=== PATIENT | female | born 1950 | race Caucasian/White ===

== ENCOUNTER → 2020-05-19 14:42 | Outpatient (CLI) | payer MEDICARE, SELFPAY ==
--- NOTE | ~2020-05-19 | MM_ITS ---
EXAMINATION: MM screening nader RT w mitesh HISTORY: Screening TECHNIQUE: Craniocaudal and mediolateral oblique 3-D tomosynthesis images were obtained and synthetic 2-D images were generated. CAD analysis was submitted and interpreted. COMPARISON: Comparison to multiple prior studies sequentially, with oldest reviewed study dated 09/13. BREAST PARENCHYMAL COMPOSITION: There are scattered areas of fibroglandular density. FINDINGS: There is no evidence of suspicious mass, calcification, or architectural distortion to sugg est malignancy in the right ..breast. There has been no suspicious interval change. IMPRESSION: 1. No mammographic evidence of malignancy. 2. Recommend routine screening mammography in one year. BI-RADS Category 1: Negative Reviewed, dictated and finalized at location A.
== END ==
PROVIDERS: PCP Family Medicine; Visit Provider Student in an Organized Health Care Education/Training Program
DX: Z12.31 Encounter for screening mammogram for malignant neoplasm of breast (principal)
CPT/HCPCS: 77063; 77067

== ENCOUNTER 2021-05-17 01:07 | Day surgery (SDC) | payer MEDICARE, SELFPAY ==
[2021-05-03 09:21] VITALS: BMI 34.0
[2021-05-17 10:14] VITALS: BP 126/80; PULSE 82; RESP 16; TEMP 35.9; O2SAT 98; BMI 35.7
[2021-05-17] MEDS: LACTATED RINGERS 1,000 ML 150 ML IV CONT (10:19)
--- NOTE | 2021-05-17 10:49 | WPDANESEPPF ---
Anes - Initial Pre Proc Eval Procedure: Operation Date: 05/17/21 11:00 Proposed Procedures p Esophagogastroduodenoscopy - Asael Funk MD Date/Time: 05/17/21 10:49 Surgeon: Asael Funk MD Pre Op Diagnosis: dysphagia Patient Data Age: 70 Gender: F Height: 1.52 m Weight: 83.1 kg Last Vital Signs Temp 35.9 C L 05/17/21 10:14 Pulse 82 05/17/21 10:14 Resp 16 05/17/21 10:14 BP 126/80 05/17/21 10:14 Pulse Ox 98 05/17/21 10:14 Allergies Allergy/AdvReac Type Severity Reaction Status Date / Time azithromycin Allergy Severe Diarrhea Verified 05/17/21 10:11 Cephalosporins Allergy Severe Diarrhea Verified 05/17/21 10:11 erythromycin base Allergy Severe Diarrhea Verified 05/17/21 10:11 hyaluronic acid Allergy Intermediate RASH Verified 05/17/21 10:11 naproxen Allergy Intermediate Rash Verified 05/17/21 10:11 Penicillins Allergy Intermediate Rash Verified 05/17/21 10:11 Sulfa (Sulfonamide Allergy Intermediate Rash Verified 05/17/21 10:11 Antibiotics) hyaluronate sodium, AdvReac Intermediate Rash Verified 05/17/21 10:11 stabilized Home Medications Medication Instructions Recorded Confirmed Type anastrozole 1 mg tablet 1 mg PO DAILY 10/15/19 05/17/21 History aspirin 81 mg tablet,delayed 81 mg PO DAILY 10/15/19 05/17/21 History release cholestyramine-aspartame 4 gram 4 gm PO DAILY each 04/10/20 05/17/21 History oral powder for susp in a packet ibuprofen 600 mg tablet 600 mg PO TID PRN #270 tablet MDD 01/10/21 05/17/21 Rx 3 tabs atorvastatin 10 mg tablet 10 mg PO DAILY #90 tablet 01/24/21 05/17/21 Rx cetirizine [Zyrtec] 10 mg PO DAILY 05/03/21 05/17/21 History cholecalciferol (vitamin D3) 50 mcg PO DAILY 05/03/21 05/17/21 History [Vitamin D3] dicyclomine 10 mg PO BID 05/03/21 05/17/21 History famotidine 40 mg PO DAILY 05/03/21 05/17/21 History melatonin 1 mg PO HS PRN 05/03/21 05/17/21 History atorvastatin 10 mg tablet 10 mg PO DAILY 05/15/21 05/17/21 History loperamide 2 mg capsule 2 mg PO Q6H PRN 05/15/21 05/17/21 History nystatin-triamcinolone 100,000 1 applic TOPICAL BID #30 g 05/15/21 05/17/21 Rx unit/gram-0.1 % topical ointment Patient hx anesthesia problems: none Family hx anesthesia problems: none PMFSH Past Medical History Medical History GERD (gastroesophageal reflux disease) History of left breast cancer Hyperlipidemia IBS (irritable bowel syndrome) Other symptoms involving urinary system Surgical History Surgical History H/O arthroscopy of right knee H/O section H/O total knee replacement History of cholecystectomy History of endoscopy History of mastectomy History of tonsillectomy S/P foot surgery, left Family History Family History Father Cerebrovascular accident Family history of osteoarthritis Family history of Alzheimer's disease Mother Family history of thyroid disease Family history of aortic aneurysm Family history of emphysema Other Family history of malignant neoplasm of breast in first degree relative Social History Social History Smoking packs per day: 1 Smoking cigarettes per day: 20.0 Years smoked: 10 Smoking pack-years: 10.00 Smoking status: Former smoker Tobacco type: cigarettes Second hand tobacco smoke exposure: No Smoking end date: 10/13/82 Alcohol intake: current Alcohol use details: Rarely Substance use: never Substance use type: does not use Living arrangements: with family Gender identity (if verbalized by the patient): Female Spiritual care concerns: No Anes - Eval Final PreProcedure Day of Procedure 05/17/21 10:49 Patient weight: obese Heart: regular rate and rhythm Lungs: clear to auscultation Airway: Mallampati scale class II Neurolog
--- NOTE | 2021-05-17 11:02 | PM.HPGS ---
History of Present Illness History of Present Illness Consent: Risks, benefits, and alternatives have been discussed and questions answered. Patient agrees to proceed with procedure. Chief complaint: dysphagia Narrative: Jo Bales is a 70 year old female With dysphagia for solid food. She has a history having an esophageal stricture which was dilated about 3 years ago. Review of Systems Review of Systems: All systems reviewed & are unremarkable except as noted in HPI and below PMFSH Past Medical History Medical History GERD (gastroesophageal reflux disease) History of left breast cancer Hyperlipidemia IBS (irritable bowel syndrome) Other symptoms involving urinary system Surgical History Surgical History H/O arthroscopy of right knee H/O section H/O total knee replacement History of cholecystectomy History of endoscopy History of mastectomy History of tonsillectomy S/P foot surgery, left Family History Family History Father Cerebrovascular accident Family history of osteoarthritis Family history of Alzheimer's disease Mother Family history of thyroid disease Family history of aortic aneurysm Family history of emphysema Other Family history of malignant neoplasm of breast in first degree relative Social History Social History Smoking packs per day: 1 Smoking cigarettes per day: 20.0 Years smoked: 10 Smoking pack-years: 10.00 Smoking status: Former smoker Tobacco type: cigarettes Second hand tobacco smoke exposure: No Smoking end date: 10/13/82 Alcohol intake: current Alcohol use details: Rarely Substance use: never Substance use type: does not use Living arrangements: with family Gender identity (if verbalized by the patient): Female Spiritual care concerns: No Meds Home Medications and Allergies Home Medications Medication Instructions Recorded Confirmed Type anastrozole 1 mg tablet 1 mg PO DAILY 10/15/19 05/17/21 History aspirin 81 mg tablet,delayed 81 mg PO DAILY 10/15/19 05/17/21 History release cholestyramine-aspartame 4 gram 4 gm PO DAILY each 04/10/20 05/17/21 History oral powder for susp in a packet ibuprofen 600 mg tablet 600 mg PO TID PRN #270 tablet MDD 01/10/21 05/17/21 Rx 3 tabs atorvastatin 10 mg tablet 10 mg PO DAILY #90 tablet 01/24/21 05/17/21 Rx cetirizine [Zyrtec] 10 mg PO DAILY 05/03/21 05/17/21 History cholecalciferol (vitamin D3) 50 mcg PO DAILY 05/03/21 05/17/21 History [Vitamin D3] dicyclomine 10 mg PO BID 05/03/21 05/17/21 History famotidine 40 mg PO DAILY 05/03/21 05/17/21 History melatonin 1 mg PO HS PRN 05/03/21 05/17/21 History atorvastatin 10 mg tablet 10 mg PO DAILY 05/15/21 05/17/21 History loperamide 2 mg capsule 2 mg PO Q6H PRN 05/15/21 05/17/21 History nystatin-triamcinolone 100,000 1 applic TOPICAL BID #30 g 05/15/21 05/17/21 Rx unit/gram-0.1 % topical ointment Allergies Allergy/AdvReac Type Severity Reaction Status Date / Time azithromycin Allergy Severe Diarrhea Verified 05/17/21 10:11 Cephalosporins Allergy Severe Diarrhea Verified 05/17/21 10:11 erythromycin base Allergy Severe Diarrhea Verified 05/17/21 10:11 hyaluronic acid Allergy Intermediate RASH Verified 05/17/21 10:11 naproxen Allergy Intermediate Rash Verified 05/17/21 10:11 Penicillins Allergy Intermediate Rash Verified 05/17/21 10:11 Sulfa (Sulfonamide Allergy Intermediate Rash Verified 05/17/21 10:11 Antibiotics) hyaluronate sodium, AdvReac Intermediate Rash Verified 05/17/21 10:11 stabilized Vital Signs Vital Signs - 24 hr 05/17/21 10:14 Temperature 35.9 C L Pulse Rate 82 Respiratory Rate 16 Blood Pressure 126/80 Pulse Oximetry 98 Exam Const: General: alert Orientation/consciousnes
[2021-05-17 11:37] VITALS: BP 126/80; PULSE 84; RESP 24; O2SAT 95
[2021-05-17 11:47] VITALS: BP 104/56; PULSE 74; RESP 16; O2SAT 100
[2021-05-17 11:57] VITALS: BP 101/57; PULSE 70; RESP 18; O2SAT 99
== END 2021-05-17 12:17 | disposition home or self-care (01) ==
PROVIDERS: PCP Family Medicine; Visit Provider Internal Medicine Gastroenterology
PROC: 0DJ08ZZ Inspection of Upper Intestinal Tract, Via Natural or Artificial Opening Endoscopic (ICD-10-PCS; CPT 43235; principal; 2021-05-17 11:00)
DX: K22.2 Esophageal obstruction (principal); K25.9 Gastric ulcer, unspecified as acute or chronic, without hemorrhage or perforation; K21.9 Gastro-esophageal reflux disease without esophagitis; E78.5 Hyperlipidemia, unspecified; K58.9 Irritable bowel syndrome, unspecified; Z85.3 Personal history of malignant neoplasm of breast; Z79.811 Long term (current) use of aromatase inhibitors; Z79.82 Long term (current) use of aspirin; Z87.891 Personal history of nicotine dependence; E66.9 Obesity, unspecified; Z68.35 Body mass index [BMI] 35.0-35.9, adult
CPT/HCPCS: 43239; 43249; 87081; C1726; J2001; J2704; J7120

== ENCOUNTER 2021-06-08 14:53 | Outpatient (CLI) | payer MEDICARE, SELFPAY ==
--- NOTE | ~2021-06-08 | MM_ITS ---
EXAMINATION: MM screening nader RT w mitesh HISTORY: Screening right mammogram, history of left mastectomy TECHNIQUE: Craniocaudal and mediolateral oblique 3-D tomosynthesis images were obtained and synthetic 2-D images were generated. CAD analysis was submitted and interpreted. COMPARISON: 05/19/2020, 12/16/2018, 11/11/2017 BREAST PARENCHYMAL COMPOSITION: The breast is almost entirely fatty. FINDINGS: There is no evidence of suspicious mass, calcification, or architectural distortion to sugg est malignancy. There has been no suspicious interval change. IMPRESSION: 1. No mammographic evidence of malignancy. 2. Recommend routine screening mammography in one year. BI-RADS Category 1: Negative Reviewed, dictated and finalized at location A.
== END 2021-06-08 14:54 | disposition home or self-care (01) ==
LOC: ANHIMG 14:58
PROVIDERS: PCP Family Medicine; Referring Provider Internal Medicine Medical Oncology; Visit Provider Student in an Organized Health Care Education/Training Program
DX: Z12.31 Encounter for screening mammogram for malignant neoplasm of breast (principal)
CPT/HCPCS: 77063; 77067

== ENCOUNTER 2021-07-02 12:54 | Outpatient (CLI) | payer MEDICARE, SELFPAY ==
--- NOTE | ~2021-07-02 | DEXA_ITS ---
Bone Density Report Name: Jo Bales Age: 70 Sex: Female Ethnicity: White Date of : 1950 Indication: osteopenia; height loss; inflammatory bowel disease; prior fracture; cancer; Referring Provider: Bessie Santacruz Study: Bone densitometry was performed. Exam Date: July 02, 2021 Accession number: [id number] Bone Density: Region BMD T-score Z-score Classification AP Spine (L1-L4) 0.944 -0.9 1.2 Normal Femoral Neck (Left) 0.688 -1.5 0.4 Osteopenia Total Hip (Left) 0.808 -1.1 0.4 Osteopenia Total Hip Bilateral Avg 0.833 -0.9 0.6 Normal Femoral Neck (Right) 0.768 -0.7 1.1 Normal Total Hip (Right) 0.856 -0.7 0.8 Normal World Health Organization criteria for BMD impression classify patients as: Normal (T-score at or above -1.0), Osteopenia (T-score between -1.0 and -2.5), or Osteoporosis (T-score at or below -2.5). 10-year Fracture Risk(1): Major Osteoporotic Fracture 15% Hip Fracture 2.0% Reported Risk Factors: [place] (), Neck BMD=0.688, BMI=32.0, previous fracture (1) FRAX(R) Version 3.08. Fracture probability calculated for an untreated patient. Fracture probability may be lower if the patient has received treatment. Previous Exams: Region Exam Age BMD T-score BMD Change BMD Change Date g/cm2 vs Baseline vs Previous AP Spine(L1-L4) 07/02/2021 70 0.944 -0.9 0.049(5.5%)# 0.049(5.5%)# 03/31/2012 61 0.895 -1.4 Total Hip(Left) 07/02/2021 70 0.808 -1.1 -0.060(-6.9%)# -0.060(-6.9%)# 03/31/2012 61 0.868 -0.6 Total Hip(Right) 07/02/2021 70 0.856 -0.7 -0.023(-2.6%)# -0.023(-2.6%)# 03/31/2012 61 0.878 -0.5 *Denotes significance at 95% confidence level, LSC for AP Spine = 0.022 g/cm2, LSC for Total Hip = 0.027 g/cm2 Clinical Information Provided by Patient: Has had a low trauma fracture Has used the following medications: Vitamin D Has the following medical conditions: Cancer, Inflammatory bowel diseases Patient maximum height was 61 Menopause Age: 43 No regular weight bearing exercise Drinks caffeinated beverages Onset of menses at age 12 Number of children 2 Impression: The patient has low bone mass, based on the Left Femoral Neck T-score. The patient has an estimated ten-year risk of hip fracture of 2% and an estimated ten-year risk of major fracture of 15%, based on the WHO FRAX algorithm. The patient has risk factors, including: previous fracture. No significant bone loss was observed.
== END 2021-07-02 12:55 | disposition home or self-care (01) ==
LOC: ANHIMG 12:56
PROVIDERS: PCP Family Medicine; Visit Provider Student in an Organized Health Care Education/Training Program
DX: Z78.0 Asymptomatic menopausal state (principal); M85.852 Other specified disorders of bone density and structure, left thigh
CPT/HCPCS: 77080

== ENCOUNTER 2022-03-27 14:45 | Outpatient (CLI) | payer MEDICARE, SELFPAY ==
--- NOTE | ~2022-03-27 | CT_ITS ---
EXAMINATION: CT thoracic spine wo con DATE: 03/27/2022 15:33 INDICATION: Lumbar stenosis with neurogenic claudication. TECHNIQUE: Computed tomography (CT) of the thoracic spine was performed without intravenous contrast. Automated exposure control and iterative reconstruction technique were employed. The dose-length pro duct was 1049.80 mGy-cm. COMPARISON: None FINDINGS: The lungs demonstrate mild atelectasis. There is 7 degrees dextrocurvature of thoracic spin e. There is 6 degrees levocurvature of cervicothoracic spine. There is 2 mm anterolisthesis of T2 on T3. Vertebral body heights are normal. There is moderately decreased disc height at T2-T3, severely d ecreased disc height from T3-T4 through T5-T6, and moderately decreased disc height at T9-T10. There is mildly decreased disc height at multiple other levels. There is multilevel facet joint osteoarthri tis, severe on the right at T1-T2 and T2-T3. There is multilevel mild neural foraminal stenosis bilat erally. On the right, there is moderate neural foraminal stenosis at T3-T4 and T9-T10. On the left, t here is moderate neural foraminal stenosis at T4-T5. There is mild central canal stenosis at T2-T3, T 3-T4, T4-T5, T5-T6, T6-T7, T7-T8, T9-T10, and T11-T12. IMPRESSION: 1. Severe thoracic spondylosis. Reviewed, dictated and finalized at location B.
--- NOTE | ~2022-03-27 | XR_ITS ---
EXAM: XR lumbar spine 2-3V DATE: 03/27/2022 16:12 HISTORY: LUMBAR STENOSIS WITH NEUROGENIC CLASUDICATION . COMPARISON: 08/07/2004, CT abdomen and pelvis 11/22/2016. FINDINGS: 5 nonrib-bearing lumbar-type vertebral bodies. Pedicles intact as visualized. Lumbar scoli osis. 3 mm retrolisthesis of L1 on L2. Linear anterolisthesis of L5 on S1. Vertebral body heights pre served. Multilevel disc space narrowing and marginal osteophytosis. Multilevel severe facet hypertrop hy and sclerosis. Posterior fusion abnormality at L3 and L4. Previously described pars defect not paco ged in this study. No fracture or dislocation. IMPRESSION: Grade 2 anterolisthesis of L5 on S1. Grade 1 retrolisthesis of L1 on L2. Multilevel moder ate degenerative disc disease. Multilevel severe lumbar facet arthropathy. Reviewed, dictated and finalized at location K. IMPRESSION: Grade 2 anterolisthesis of L5 on S1. Grade 1 retrolisthesis of L1 o n L2. Multilevel moderate degenerative disc disease. Multilevel severe lumbar f acet arthropathy.
--- NOTE | ~2022-03-27 | CT_ITS ---
EXAMINATION: CT cervical spine wo con DATE: 03/27/2022 15:34 INDICATION: Lumbar stenosis with neurogenic claudication. TECHNIQUE: Computed tomography (CT) of the cervical spine was performed without intravenous contrast. Automated exposure control and iterative reconstruction technique were employed. The dose-length pro duct was 405.20 mGy-cm. COMPARISON: CT cervical spine 05/09/16 FINDINGS: There is 7 degrees dextrocurvature of cervical spine. There is kyphosis of cervical spine. Vertebral body heights are normal. C1 ring is ununited posteriorly, a normal variant. There is mildly decreased disc height at C3-C4 and C4-C5 and C5-C6. The following disc levels are specifically discu ssed: C2-C3: There is moderate left uncovertebral joint osteoarthritis. There is mild right and severe left facet joint osteoarthritis. There is mild left neural foraminal stenosis. There is no central canal stenosis. C3-C4: There is mild bilateral uncovertebral joint osteoarthritis. There is moderate right and severe left facet joint osteoarthritis. There is mild bilateral neural foraminal stenosis. There is mild ce ntral canal stenosis. C4-C5: There is mild bilateral uncovertebral joint osteoarthritis. There is severe bilateral facet lizabeth int osteoarthritis. There is mild bilateral neural foraminal stenosis. There is no central canal sten osis. C5-C6: There is moderate right and severe left uncovertebral joint osteoarthritis. There is mild bila teral facet joint osteoarthritis. There is mild bilateral neural foraminal stenosis. There is mild ce ntral canal stenosis. C6-C7: There is no uncovertebral joint osteoarthritis. There is severe right facet joint osteoarthrit is. There is mild right neural foraminal stenosis. There is no central canal stenosis. C7-T1: There is no uncovertebral joint osteoarthritis. There is severe bilateral facet joint osteoart hritis. There is no neural foraminal stenosis. There is no central canal stenosis. IMPRESSION: 1. Mild cervical spondylosis. Reviewed, dictated and finalized at location B.
== END 2022-03-27 14:46 | disposition home or self-care (01) ==
PROVIDERS: PCP Family Medicine
DX: M48.062 Spinal stenosis, lumbar region with neurogenic claudication (principal); M47.815 Spondylosis without myelopathy or radiculopathy, thoracolumbar region; M47.813 Spondylosis without myelopathy or radiculopathy, cervicothoracic region; M48.03 Spinal stenosis, cervicothoracic region; M47.817 Spondylosis without myelopathy or radiculopathy, lumbosacral region; M48.07 Spinal stenosis, lumbosacral region
CPT/HCPCS: 72100; 72125; 72128

== ENCOUNTER 2022-05-24 01:40 | Outpatient (CLI) | payer MEDICARE, SELFPAY ==
[2022-05-17 15:11] VITALS: BMI 36.5
--- NOTE | 2022-05-17 15:14 | PC.NURSE ---
Pre Radiology instructions Report to the Outpatient Waiting Room, entrance under the green pavilion located off [facility], at time 0800 on date 05/24/22. Procedure Time: 1000. One visitor will be allowed to accompany the patient into the hospital. The visitor will be instructed to remain with patient at all times or leave the building. We will allow the visitor to come back to the postoperative area when patient is ready. You and your visitor will be asked a series of questions to screen for COVID 19 for your protection. A mask is required within the hospital. Patients are to have no food or drink 6 hours prior to procedure time Driving will be restricted after the procedure, you must have a person to drive you home. Labs will be drawn in preop area and once reviewed, you will be taken to radiology area for procedure. When the procedure is completed, you will be taken to outpatient where you will be monitored for several hours. You may have one visitor in this area. Other than holding anti-coagulants, patient may take other medication(s) as scheduled. Prior to your appointment date patients are instructed to hold anti-coagulants after discussing with ordering provider to stop. If unable to discontinue anti-coagulants please notify radiologist. No aspirin or warfarin (Coumadin) for 7 days prior to the procedure. No clopidogrel (Plavix), ticagrelor (Brilinta), prasugrel (Effient) or dabigatran (Pradaxa) for 5 days prior to the procedure. No rivaroxaban (Xarelto), apixaban (Eliquis), dipyridamole (Aggrenox or Persantine) or cilostazol (Pletal) for 2 days prior to the procedure. Medications to discontinue per physician: N/A Date to take last dose: N/A Please leave all valuables, including medications, at home the day of procedure. The hospital will not accept responsibility for valuables. Wear comfortable, loose fitting clothing. Follow any additional instructions given to you from ordering provider. Telephone instructions given to MEERA ESPOSITO and asked if any additional questions and then verbalized understanding. Patient advised to call scheduling provider office or registration scheduling [phone] if any additional questions.
[2022-05-24] VITALS (7 sets, daily range): BP systolic 94–129; BP diastolic 43–75; PULSE 70–91; RESP 16; TEMP 36.4; O2SAT 96–99
--- NOTE | ~2022-05-24 | CT_ITS ---
EXAMINATION: 1. XR myelogram spine lumbosacral 2. CT lumbar spine w con DATE: 05/24/2022 11:14 INDICATION: Other secondary scoliosis, lumbar region. TECHNIQUE: The procedure including the risks, benefits, and alternatives was discussed with the patie nt. Risks discussed included spinal headache, bleeding, and infection. The patient understood the ris ks and agreed to proceed. A timeout was performed to verify the patient's name, date of , and procedure to be performed. The skin overlying the L2-L3 level was prepped and draped in usual steri le fashion. Subcutaneous 1% lidocaine was used for local anesthesia. A 22 gauge spinal needle was a dvanced under fluoroscopic guidance. 10 mL Omnipaque 350 was injected. The needle was removed and the entry site was cleaned and dressed. There were no immediate complications. Fluoroscopy exposure felecia e was 0.5 minutes. The total number of images was 9. Computed tomography (CT) of the lumbar spine was performed without intravenous contrast. Automated exposure control and iterative reconstruction tech nique were employed. The dose-length product was 1131.73 mGy-cm. COMPARISON: Lumbar spine radiographs 03/27/2022 FINDINGS: LUMBAR MYELOGRAM: There are 12 pairs of ribs. There are 5 nonrib-bearing lumbar segments. There are i ndentations on the thecal sac at multiple levels that will be further described on the lumbar spine C T. POST-MYELOGRAM LUMBAR SPINE CT: There is 13 degrees levoscoliosis from T12 to L3. L3 is a butterfly s egment. There is 3 mm anterolisthesis of L4 on L5. There is mildly decreased disc height at T12-L1, m oderately decreased disc height at L1-L2, and mildly decreased disc height at L2-L3. There is severel y decreased disc height at L5-S1 on the left. There is dysraphism at L3 and L4. Diastematomyelia is n oted. The conus medullaris is at L4. The following disc levels are specifically discussed: T12-L1: The disc is bulging. There is mild bilateral facet joint osteoarthritis. There is mild right neural foraminal stenosis. There is mild central canal stenosis. L1-L2: The disc is bulging. There is mild bilateral facet joint osteoarthritis. There is mild right n eural foraminal stenosis. There is no central canal stenosis. L2-L3: The disc is bulging. There is mild right and moderate left facet joint osteoarthritis. There i s no neural foraminal stenosis. There is no central canal stenosis. L3-L4: The disc does not extend beyond the endplate margins. There is moderate right and severe left facet joint osteoarthritis. There is no neural foraminal stenosis. There is no central canal stenosis . L4-L5: The disc is bulging. There is severe bilateral facet joint osteoarthritis. There is mild right and moderate left neural foraminal stenosis. There is mild central canal stenosis. L5-S1: The disc is bulging. There is severe bilateral facet joint osteoarthritis. There is mild right and moderate left neural foraminal stenosis. There is no central canal stenosis. IMPRESSION: 1. 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 2. 13 degrees levoscoliosis of thoracolumbar spine. 3. Severe lower lumbar spondylosis. Reviewed, dictated and finalized at location A. IMPRESSION: 1. 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 2. 13 degrees levoscoliosis of thoracolumbar spine. 3. Severe lower lumbar spondylosis.
[2022-05-24] MEDS: traMADol HCL (*CRX) 50 MG TABLET PO (11:35)
== END 2022-05-24 13:05 | disposition home or self-care (01) ==
PROVIDERS: PCP Family Medicine; Visit Provider Radiology Diagnostic Radiology
DX: M41.85 Other forms of scoliosis, thoracolumbar region (principal); M41.56 Other secondary scoliosis, lumbar region; M47.816 Spondylosis without myelopathy or radiculopathy, lumbar region
CPT/HCPCS: 36415; 62304; 72132; 85610; A9270; Q9967

== ENCOUNTER 2022-07-11 10:24 | Outpatient (CLI) | payer MEDICARE, SELFPAY ==
--- NOTE | ~2022-07-11 | MM_ITS ---
EXAMINATION: MM screening nader RT w mitesh HISTORY: Screening mammogram; status post left mastectomy in 1992 TECHNIQUE: Craniocaudal and mediolateral oblique 3-D tomosynthesis images were obtained and synthetic 2-D images were generated. CAD analysis was submitted and interpreted. COMPARISON: 06/08/2021, 05/19/2020, 12/16/2018 right screening mammogram examinations BREAST PARENCHYMAL COMPOSITION: The breasts are almost entirely fatty. FINDINGS: There is no evidence of suspicious mass, calcification, or architectural distortion to sugg est malignancy in either breast. There has been no suspicious interval change. IMPRESSION: 1. No mammographic evidence of malignancy. 2. Recommend routine screening mammography in one year. BI-RADS Category 1: Negative Reviewed, dictated and finalized at location A.
== END 2022-07-11 10:25 | disposition home or self-care (01) ==
PROVIDERS: PCP Family Medicine; Visit Provider Student in an Organized Health Care Education/Training Program
DX: Z12.31 Encounter for screening mammogram for malignant neoplasm of breast (principal)
CPT/HCPCS: 77063; 77067

== ENCOUNTER → 2022-11-15 09:17 | Outpatient (CLI) | payer MEDICARE, SELFPAY ==
--- NOTE | ~2022-11-15 | US_ITS ---
Abdominal Sonogram: Real-time sonographic imaging of the abdomen was performed. Clinical History: Fatty liver Findings: The liver appears normal with no evidence of mass lesion or bile duct dilatation. Main por nelli vein demonstrates normal direction of flow. The spleen is normal in size without evidence of foca l lesion. The gallbladder is absent, compatible with prior cholecystectomy. The common bile duct adriana sures 5 mm. The visualized pancreas, aorta, and IVC are unremarkable. The right kidney measures 10. 0 cm in length and the left kidney measures 10.2 cm. There is no hydronephrosis or renal calculus. T here is a 9 mm echogenic structure in the right renal cortex, compatible small angiomyolipoma. Impression: Status post cholecystectomy. 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 Reviewed, dictated and finalized at [facility]. ERN SCRATCHER Impression: Status post cholecystectomy. 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
--- NOTE | ~2022-11-15 | XR_ITS ---
Clinical Indication: Wheezing PA and lateral views of the chest: Comparison: 11/22/2016 Findings: The lungs are clear, without evidence of focal consolidation or pleural effusion. Cardiome diastinal silhouette is within normal limits. Bones and soft tissues are unremarkable. Impression: Normal chest. Reviewed, dictated and finalized at [facility]. Y PLAN SALES DIRECTOR Impression: Normal chest.
== END ==
PROVIDERS: PCP Family Medicine
DX: K76.0 Fatty (change of) liver, not elsewhere classified (principal); N28.9 Disorder of kidney and ureter, unspecified
CPT/HCPCS: 71046; 76700

== ENCOUNTER → 2022-12-26 15:09 | Outpatient (CLI) | payer MEDICARE, SELFPAY ==
--- NOTE | ~2022-12-26 | XR_ITS ---
EXAMINATION: XR hand RT 2V, XR finger 1st RT min 2V DATE: 12/26/2022 15:21 INDICATION: Nontraumatic right thumb pain with tenderness at the anatomic snuff box of the right wris t. TECHNIQUE: 1. Posteroanterior, oblique and lateral views of the right thumb were obtained. 2. Posteroanterior and lateral views of the right hand were obtained. COMPARISON: None. FINDINGS: Bone alignment is normal. No fracture. Chondrocalcinosis in the region of the triangular fibrocartila ge complex. Polyarticular osteoarthritis, moderate to severe at the first carpometacarpal joint and m oderate at the triscaphe joint and at the second-fifth distal interphalangeal joints. Mild osteoarthr itis at the first and second metacarpophalangeal and remaining interphalangeal joints. Soft tissues a re unremarkable. IMPRESSION: 1. Polyarticular osteoarthritis, moderate to severe at the first carpometacarpal joint and moderate a t the triscaphe and several distal interphalangeal joints. Reviewed, dictated and finalized at location L. IMPRESSION: 1. Polyarticular osteoarthritis, moderate to severe at the first carpometacarpa l joint and moderate at the triscaphe and several distal interphalangeal joints .
== END ==
PROVIDERS: PCP Family Medicine; Visit Provider Family Medicine
DX: M79.644 Pain in right finger(s) (principal); M15.9 Polyosteoarthritis, unspecified
CPT/HCPCS: 73120; 73140

== ENCOUNTER → 2023-02-03 15:50 | Outpatient (CLI) | payer MEDICARE, SELFPAY ==
--- NOTE | ~2023-02-03 | XR_ITS ---
EXAMINATION: XR hip RT min 2V DATE: 02/03/2023 16:05 INDICATION: Right hip pain TECHNIQUE: Two views of right hip were obtained. COMPARISON: 08/07/2004 FINDINGS: There is mild osteoarthritis of the hip. Bone alignment is normal. There is no fracture. Ph leboliths are noted in the pelvis. IMPRESSION: 1. Mild osteoarthritis of the hip. Reviewed, dictated and finalized at location L.
== END ==
PROVIDERS: PCP Family Medicine
DX: M16.11 Unilateral primary osteoarthritis, right hip (principal)
CPT/HCPCS: 73502

== ENCOUNTER 2023-06-02 13:30 | Outpatient (RCR) | payer MEDICARE, SELFPAY ==
--- NOTE | 2023-05-09 15:31 | OPREHPOC ---
Outpatient Therapy Plan of Care This is a Multidisciplinary Plan of Care that may contain components documented by all disciplines (PT, OT, and ST.) PT Problem 1 PT Problem #1 Knowledge Deficit PT Goal 1 Goal 1* indep with HEP for land and water PT Problem 2 PT Problem #2 Pain PT Goal 1 Goal 1* pt report pain at worst of 6/10 2* pt report standing/walking tolerance of 15 minutes without an increase in pain PT Problem 3 PT Problem #3 Impaired Strength PT Goal 1 Goal 1* pt able to perform aquatic exercises for 45 minutes 2* 2 minute walking test distance of 300', with cane
--- NOTE | 2023-05-09 15:31 | PTOPEVAL1 ---
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 GOAL: have less pain, walk dogs around block; Reported Pain Level Pain Score Self Report Additional Pain Score Comments pain range in the past week: 0-8/10; constant dull ache; occasionally with moving wrong/turn back- sharp and more pain; stiff back; mostly R low back and into Buttock increase pain: stand/walk 10-15 minutes; stand and twist back, in car and go to get out decrease pain: lie down, heat, home stim, vibration cushion for chair; ibuprofen 2-3 x/day, tylenol PRN, gabapentin, tramadol--PRN when really bad; sleeping is not dirupted due to back pain; Assessment PT Clinical Summary Jo has the diagnosis of back pain. 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 She ambulates with a cane out of the home and has decreased standing, walking and activity tolerance due to pain. Education with patient on pain managemen
--- NOTE | 2023-06-02 14:13 | PTOPDC ---
Assessment and note entered by Halima Wolf, PT Evaluation Information Assessment Status Discharge Diagnosis back pain Onset about 1 year ago Subjective Information Jo reports: likes the water exercises and jets in the water; little stronger than was when started therapy; feel like pain is about the same; saw pain management last week--she is eligible to get an injection in her hip, but did not want one yet, was given a round of steroids to use if hip flares up; is going to see about joining a pool to keep with the water exercises. Reported Pain Level Pain Score Self Report Additional Pain Score Comments pain range in the past week 0-6/10; R and L low back, no radicular pain reported standing/walking 10 min; increase pain; standing, walking, laundry, increase activity decrease pain: sit,rest, home stim, muscle cream; reinforced activity/rest balance, use of motorized scooter for distances; Assessment PT Clinical Summary Jo has received 6 PT sessions. Compared to the initial evaluation: pain rating at the low rate is the same at 0/10 and worst rating decreased from 8 to 6/10; reported standing/walking tolerance is the same at 10 minutes; 2 minute walking test distance improved from 200 to 220'; increase strength with mat exercises and tolerating 45 minutes of aquatic exercises; education completed for HEP and pain management. The goals were partially achieved. Discharge PT services. Plan of Care PT Services Indicated No
== END 2023-06-02 15:43 | disposition home or self-care (01) ==
LOC: ANHPT 13:30
PROVIDERS: PCP Family Medicine; Visit Provider Physician Assistant
DX: M54.9 Dorsalgia, unspecified (principal)
CPT/HCPCS: 97110; 97113; 97161; 97530

== ENCOUNTER 2023-10-27 13:09 | Outpatient (CLI) | payer MEDICARE, SELFPAY ==
--- NOTE | ~2023-10-27 | MM_ITS ---
EXAMINATION: MM screening nader RT w mitesh HISTORY: Screening. Status post left mastectomy. TECHNIQUE: Craniocaudal and mediolateral oblique 3-D tomosynthesis images were obtained and synthetic 2-D images were generated. CAD analysis was submitted and interpreted. COMPARISON: Comparison to multiple prior studies sequentially, with oldest reviewed study dated 09/13. BREAST PARENCHYMAL COMPOSITION: The breasts are almost entirely fatty. FINDINGS: There is no evidence of suspicious mass, calcification, or architectural distortion to sugg est malignancy in the right breast breast. There has been no suspicious interval change. IMPRESSION: 1. No mammographic evidence of malignancy. 2. Recommend routine screening mammography in one year. BI-RADS Category 1: Negative Reviewed, dictated and finalized at location A. EGE ADVISOR
== END 2023-10-27 13:10 | disposition home or self-care (01) ==
LOC: ANHIMG 13:12
PROVIDERS: PCP Family Medicine; Visit Provider Physician Assistant
DX: Z12.31 Encounter for screening mammogram for malignant neoplasm of breast (principal); Z85.3 Personal history of malignant neoplasm of breast
CPT/HCPCS: 77063; 77067

== ENCOUNTER 2023-11-19 13:41 | Outpatient (CLI) | payer MEDICARE, SELFPAY ==
--- NOTE | ~2023-11-19 | DEXA_ITS ---
Bone Density Report Name: REZA ESPOSITO Age: 73 Sex: Female Ethnicity: White Date of : 1950 Indication: osteopenia; height loss; inflammatory bowel disease; cancer; Referring Provider: FERNANDA SMITH Study: Bone densitometry was performed. Exam Date: November 19, 2023 Accession number: [id number] Bone Density: Region BMD T-score Z-score Classification AP Spine(L1-L4) 0.932 -1.0 1.2 Normal Femoral Neck (Left) 0.703 -1.3 0.7 Osteopenia Total Hip (Left) 0.767 -1.4 0.2 Osteopenia Femoral Neck (Right) 0.728 -1.1 0.9 Osteopenia Total Hip (Right) 0.784 -1.3 0.4 Osteopenia Total Hip Mean 0.776 -1.4 0.3 Osteopenia World Health Organization criteria for BMD impression classify patients as: Normal (T-score at or above -1.0), Osteopenia (T-score between -1.0 and -2.5), or Osteoporosis (T-score at or below -2.5). 10-year Fracture Risk(1): Major Osteoporotic Fracture 9.6% Hip Fracture 1.4% Reported Risk Factors: [place] (), Neck BMD=0.703, BMI=34.2 (1) FRAX(R) Version 3.08. Fracture probability calculated for an untreated patient. Fracture probability may be lower if the patient has received treatment. Previous Exams: Region Exam Age BMD T-score BMD Change BMD Change Date g/cm2 vs Baseline vs Previous AP Spine (L1-L4) 11/19/2023 73 0.932 -1.0 -0.012 (-1.2%) -0.012 (-1.2%) 07/02/2021 70 0.944 -0.9 Total Hip(Left) 11/19/2023 73 0.767 -1.4 -0.041 (-5.0%) -0.041 (-5.0%) 07/02/2021 70 0.808 -1.1 Total Hip(Right) 11/19/2023 73 0.784 -1.3 -0.071 (-8.3%) -0.071 (-8.3%) 07/02/2021 70 0.856 -0.7 *Denotes significance at 95% confidence level, LSC for AP Spine = 0.022 g/cm2, LSC for Total Hip = 0.027 g/cm2 Clinical Information Provided by Patient: Has used the following medications: Vitamin D Has the following medical conditions: Cancer, Inflammatory bowel diseases Patient maximum height was 62 Menopause Age: 43 No regular weight bearing exercise Drinks caffeinated beverages Onset of menses at age 11 Number of children 2 Impression: The patient has low bone mass, based on the Left Total Hip T-score. The patient has an estimated ten-year risk of hip fracture of 1.4% and an estimated ten-year risk of major fracture of 9.6%, based on the WHO FRAX algorithm. The BMD for the Total Hip(Left) decreased, changing by -5.0% since the last DXA exam. The BMD for the Total Hip(Right) decreased, changing b
== END 2023-11-19 13:42 | disposition home or self-care (01) ==
LOC: ANHIMG 13:42
PROVIDERS: PCP Family Medicine; Visit Provider Physician Assistant
DX: M85.89 Other specified disorders of bone density and structure, multiple sites (principal); Z78.0 Asymptomatic menopausal state
CPT/HCPCS: 77080

== ENCOUNTER 2024-05-11 11:15 | Outpatient (CLI) | payer MEDICARE, SELFPAY ==
--- NOTE | ~2024-05-11 | XR_ITS ---
XR shoulder LT min 2V Ordering provider: Troy Lopez APRN History: . fall 6 weeks ago left shoulder pain with limited rom . Comparison: None. FINDINGS: BONES: No acute fracture or dislocation. Bony fragment inferior to the glenoid cavity most likely due to old trauma or synovitis chondromatosis.. Osteophytes seen in the humerus. JOINT SPACES: The acromioclavicular joint is normal. The glenohumeral joint shows osteoarthritic de jesus ges. SOFT TISSUES: Normal. IMPRESSION: No acute osseous abnormality left shoulder. Osteoarthritic changes of the left glenohumeral joint. Reviewed, dictated and finalized at location A.
== END 2024-05-11 11:16 ==
PROVIDERS: PCP Family Medicine; Visit Provider Student in an Organized Health Care Education/Training Program
DX: M19.012 Primary osteoarthritis, left shoulder (principal)
CPT/HCPCS: 73030

== ENCOUNTER 2024-11-19 09:18 | Observation (INO) | payer MEDICARE, SELFPAY ==
[2024-11-19] VITALS (10 sets, daily range): BP systolic 114–143; BP diastolic 61–85; PULSE 71–95; RESP 16–18; TEMP 36.3–36.6; O2SAT 93–100; BMI 34.2
--- NOTE | ~2024-11-19 | CT_ITS ---
EXAMINATION: CT brain wo con DATE: 11/19/2024 09:45 INDICATION: Head injury TECHNIQUE: Computed tomography (CT) of the head was performed without intravenous contrast. Sagittal and coronal reconstructions were performed. The mA was adjusted according to patient size. Iterative reconstruction technique was employed. The dose-length product was 605.33 mGy-cm. COMPARISON: None FINDINGS: No fracture. No acute intracranial hemorrhage, acute infarction or abnormal extra axial fluid collect ion. Ventricles are normal and symmetric. No mass/mass effect. Changes of bilateral intraocular lens replacement. The orbits, paranasal sinuses and mastoid air cells are normal. Developmental variant un fused posterior ring of C1. IMPRESSION: 1. No fracture or acute intracranial process. Reviewed, dictated and finalized at location B. ATE INVESTIGATOR SURVEILLANCE
--- NOTE | ~2024-11-19 | XR_ITS ---
EXAMINATION: XR chest 2V DATE: 11/19/2024 12:38 INDICATION: Chest pain. TECHNIQUE: Frontal and lateral views of the chest were obtained. COMPARISON: Chest 2 views 11/15/2022 FINDINGS: There is no pneumonia, pleural effusion, or pneumothorax. The heart size is normal. There i s old healed fracture of proximal right humerus. Surgical clips in the right upper quadrant are likel y from cholecystectomy. IMPRESSION: 1. No acute cardiopulmonary disease. Reviewed, dictated and finalized at location A. ATOLOGY NURSE
--- NOTE | ~2024-11-19 | CT_ITS ---
EXAMINATION: CT knee RT wo con DATE: 11/19/2024 14:20 INDICATION: Right knee pain. TECHNIQUE: Computed tomography (CT) of the right knee was performed without intravenous contrast. Aut omated exposure control and iterative reconstruction technique were employed. The dose-length product was 426.63 mGy-cm. COMPARISON: Right knee radiographs 11/19/2024 FINDINGS: There is a total right knee arthroplasty in near-anatomic alignment with patellar resurfaci ng. No fracture. No periprosthetic lucency to suggest loosening or infection. There is a small knee j oint effusion with small loose bodies. IMPRESSION: 1. Total right knee arthroplasty in near-anatomic alignment. 2. Small knee joint effusion with small loose bodies. Reviewed, dictated and finalized at location A. MOTIVE SALES ASSOCIATE
--- NOTE | ~2024-11-19 | XR_ITS ---
EXAMINATION: XR knee RT 3V DATE: 11/19/2024 10:03 INDICATION: Right knee injury and pain. TECHNIQUE: 3 views of right knee were obtained. COMPARISON: Right knee radiographs 01/05/2012 FINDINGS: There is a total right knee arthroplasty with patellar resurfacing in near-anatomic alignme nt. There are osteophytes of the patella. No fracture. No periprosthetic lucency to suggest loosening or infection. There is a small knee joint effusion with loose bodies. IMPRESSION: 1. Total right knee arthroplasty in near-anatomic alignment. 2. Small right knee joint effusion with loose bodies. Reviewed, dictated and finalized at location A. OR HRIS ANALYST
--- NOTE | ~2024-11-19 | XR_ITS ---
EXAMINATION: XR foot LT min 3V DATE: 11/19/2024 12:39 INDICATION: Fall. TECHNIQUE: 4 views of left foot were obtained. COMPARISON: Left foot radiographs 08/09/2012 FINDINGS: There is moderate hallux valgus. There is chronic absence of the distal aspect of fifth pro ximal phalanx. There is chronic deformity of the head of the fourth proximal phalanx. There is chroni c varus angulation at third proximal interphalangeal joint with chronic deformity of head of third pr oximal phalanx. There is ankylosis of second proximal interphalangeal joint. No acute fracture. There is mild osteoarthritis of some of the midfoot joints. There is an enthesophyte at plantar aspect of calcaneal tuberosity. IMPRESSION: 1. Moderate hallux valgus. 2. Mild polyarticular osteoarthritis. 3. Chronic deformities of some of the toes. Reviewed, dictated and finalized at location A. ING EXECUTIVE
--- NOTE | ~2024-11-19 | XR_ITS ---
EXAMINATION: XR ankle LT min 3V DATE: 11/19/2024 12:39 INDICATION: Fall. TECHNIQUE: 4 views of left ankle were obtained. COMPARISON: None. FINDINGS: Alignment is normal. No acute fracture. There is heterotopic ossification distal to lateral malleolus. There is mild ankle joint osteoarthritis. IMPRESSION: 1. Mild ankle joint osteoarthritis. Reviewed, dictated and finalized at location A. AL FUND MANAGER
--- NOTE | 2024-11-19 10:07 | ECG_ITS ---
Test Date: 2024-11-19 10:24:10 Measurements Intervals [place] Rate: 76 P: 50 IN: 169 QRS: -37 QRSD: 98 T: 21 QT: 369 QTc: 416 Interpretive Statements SINUS RHYTHM LEFT AXIS DEVIATION VOLTAGE CRITERIA FOR LVH MINIMAL Q WAVES- HIGH LATERAL LEADS BORDERLINE ECG No previous ECG available for comparison Electronically Signed On 11-19-2024 14:03:23 EMERGENCY TELECOMMUNICATIONS DISPATCHER by Cesar Qureshi D.O.
--- NOTE | 2024-11-19 10:08 | ED_ITS ---
HPI - Extremity Injury (Lower) General Chief Complaint: Extremity Injury, Lower <Lisa Mehta PA-C - Last Filed: 11/19/24 16:20> Stated Complaint: right leg injury <Lisa Mehta PA-C - Last Filed: 11/19/24 16:20> History of Present Illness HPI Narrative: 74-year-old female with history of GERD, IBS, hyperlipidemia presents to the ED via EMS from home for a ground level fall that occurred last night. Patient states she was walking to the bathroom when she fell and hit her 5th right eyebrow on a bookshelf. She did not lose consciousness. She is not anticoagulated. In the process of the fall she twisted her right knee which is the main source of her pain. Patient admits to having a total right knee replacement at [facility] in 2009. States she has been unable to ambulate since the fall. She is also reporting right ankle/foot pain. She denies numbness, tingling or weakness, neck pain or other injuries acquired. Upon my evaluation the patient states she developed epigastric /inferior midsternal chest pain a few minutes prior to my evaluation. She describes the pain as heartburn. States she does have history of dyspepsia and takes Protonix every morning, however did not receive her dose this morning. The pain does not radiate, is not associated with shortness of breath, cough or congestion. <Lisa Mehta PA-C - Last Filed: 11/19/24 16:20> Related Data Home Medications: Home Medications ?Medication ?Instructions ?Recorded ?Confirmed ?Last Taken ?Type melatonin 1 mg tablet 5 mg PO HS PRN Insomnia 10/16/22 11/19/24 Unknown History gabapentin 400 mg capsule 400 mg PO TID 04/08/23 11/19/24 Unknown History vibegron 75 mg tablet (Gemtesa) 75 mg PO HS 04/08/23 11/19/24 Unknown History cetirizine 10 mg capsule (Zyrtec) 10 mg PO DAILY PRN allergy symptoms 01/13/24 11/19/24 Unknown History phendimetrazine tartrate 105 mg 105 mg PO DAILY 01/13/24 11/19/24 Unknown History capsule,extended release cholecalciferol (vitamin D3) 50 50 mcg PO DAILY 08/18/24 11/19/24 Unknown History mcg (2,000 unit) capsule bupropion HCl 100 mg tablet 100 mg PO BID 11/19/24 11/19/24 Unknown History dicyclomine 10 mg capsule 10 mg PO BID 11/19/24 11/19/24 Unknown History <Lisa Mehta PA-C - Last Filed: 11/19/24 16:20> Allergies/Adverse Reactions: Allergies Allergy/AdvReac Type Severity Reaction Status Date / Time azithromycin Allergy Severe Diarrhea Verified 11/19/24 17:15 Cephalosporins Allergy Severe Diarrhea Verified 11/19/24 17:15 erythromycin base Allergy Severe Diarrhea Verified 11/19/24 17:15 hyaluronic acid Allergy Intermediate RASH Verified 11/19/24 17:15 naproxen Allergy Intermediate Rash Verified 11/19/24 17:15 Penicillins Allergy Intermediate Rash Verified 11/19/24 17:15 Sulfa (Sulfonamide Allergy Intermediate Rash Verified 11/19/24 17:15 Antibiotics) hyaluronate sodium, AdvReac Intermediate Rash Verified 11/19/24 17:15 stabilized <Lisa Mehta PA-C - Last Filed: 11/19/24 16:20> Review of Systems 2 Review of Systems: All systems reviewed & are unremarkable except as noted in HPI and below <Lisa Mehta PA-C - Last Filed: 11/19/24 16:20> [facility] Past Medical History Medical History: Medical History History of COVID-19 2018 HX: breast cancer cancer free x 30 years Club foot Pain of right thumb Gastric ulcer History of measles History of mumps History of chicken pox Dysphagia Hyperlipidemia Other symptoms involving urinary system History of left breast cancer GERD (gastroesophageal reflux disease) IBS (irritable bowel syndrome) <MONET Patel Last Filed: 11/19/24 16:20> Surgical History Surgical History: Surgical History History of cataract surgery bilateral History of endoscopy History of tonsillectomy H/O arthroscopy of right knee S/P foot surgery, left H/O section History of cholecystectomy History of mastectomy H/O total knee replacement <Lisa Mehta PA-C - Last Filed: 11/19/24 16:20> Family History Family History: Family History Father , age 86 Cerebrovascular accident Family history of osteoarthritis Arthritis Alzheimer disease Mother , age 84 Family history of thyroid disease Family history of aortic aneurysm Family history of emphysema Sibling IBS (irritable bowel syndrome) Other Family history of malignant neoplasm of breast in first degree relative <Lisa Mehta PA-C - Last Filed: 11/19/24 16:20> Social History Social History: Social History Smoking packs per day: 0 Smoking cigarettes per day: 0.0 Years smoked: 10 Smoking pack-years: 0.00 Smoking status: Former smoker Second hand tobacco smoke exposure: No Alcohol intake: never Substance use: never Substance use type: does not use Do You Feel Safe in your Home?: Yes Lack of Transportation: No Lack of Food: Never True Current Housing: I Have Housing Concerned About Future Housing: No Difficulty Paying Gas/Electric Bills: No Difficulty Paying for Meds: No Currently Unemployed: No Education: Master's Degree or Higher Difficulty w/ Childcare or Family Care: No Living arrangements: with family Occupation/Education: retired Gender identity (if verbalized by the patient): Female Spiritual care concerns: No <Lisa Mehta PA-C - Last Filed: 11/19/24 16:20> Exam 2 Narrative: GENERAL: Well-appearing, well-nourished, and in no acute distress. HEAD: Normocephalic, atraumatic. EYES: PERRLA and EOMI. ENT: Nares clear, no rhinorrhea or epistaxis. Mucous membranes moist. NECK: Supple. No midline cervical spinous tenderness, crepitus, step-offs or deformities CHEST: Clear to auscultation. No respiratory distress. HEART: Regular rate and rhythm. No murmur heard. Normal peripheral pulses. ABDOMEN: Soft, nontender, nondistended, normal active bowel sounds. EXTREMITIES: Edema to the right knee with well-healed vertical surgical scar over the anterior aspect of the knee. Diffuse tenderness to the knee with no overlying deformity, erythema, warmth. DP pulse 2 +. Sensation intact. No tenderness remainder of extremity. Left lower extremity with chronic left foot, tenderness over the proximal dorsal foot and minimally over the mediolateral malleolus with no overlying deformity, full range of motion of ankle and toes, DP pulse 2 +, sensation intact. No tenderness remainder extremities. SKIN: Contusion to the chin with no significant tenderness, the very superficial abrasion to the right eyebrow NEURO: No focal deficits. Alert and oriented x3 <Lisa Mehta PA-C - Last Filed: 11/19/24 16:20> Course SCHOOL COMMUNITY RELATIONS COORDINATOR/PA Physician Supervision For this patient encounter, I reviewed the SCHOOL COMMUNITY RELATIONS COORDINATOR or PA documentation, treatment plan, and medical decision making; and I had qctn-rr-[id number] time with this patient. <Jeison Cherry MD - Last Filed: 11/19/24 19:20> Vital Signs Vital signs: Vital Signs Temperature 98 F 11/19/24 09:23 Pulse Rate 83 11/19/24 09:23 Respiratory Rate 18 11/19/24 09:23 Blood Pressure 143/85 H 11/19/24 09:23 Pulse Oximetry 98 11/19/24 09:23 Oxygen Delivery Room Air 11/19/24 09:23 Temperature 98 F 11/19/24 09:23 Pulse Rate 80 11/19/24 15:35 Respiratory Rate 18 11/19/24 15:35 Blood Pressure 120/68 11/19/24 15:35 Pulse Oximetry 99 11/19/24 15:35 Oxygen Delivery Room Air 11/19/24 09:23 <Lisa Mehta PA-C - Last Filed: 11/19/24 16:20> Vital Signs Temperature 98 F 11/19/24 09:23 Pulse Rate 83 11/19/24 09:23 Respiratory Rate 18 11/19/24 09:23 Blood Pressure 143/85 H 11/19/24 09:23 Pulse Oximetry 98 11/19/24 09:23 Oxygen Delivery Room Air 11/19/24 09:23 Temperature 98 F 11/19/24 09:23 Pulse Rate 80 11/19/24 15:35 Respiratory Rate 18 11/19/24 15:35 Blood Pressure 120/68 11/19/24 15:35 Pulse Oximetry 99 11/19/24 15:35 Oxygen Delivery Room Air 11/19/24 09:23 <Jeison Cherry MD - Last Filed: 11/19/24 19:20> MDM - Extremity Injury (Lower) MDM Narrative Medical decision making narrative: 74-year-old female presents to the ED for a ground level mechanical fall that occurred last night. Patient reporting left ankle/foot pain, right knee pain. She did hit her head but did not lose consciousness. She is not anticoagulated. Vitals are stable. Exam is significant for the above. CT brain shows no acute intracranial abnormality. X-ray of the right knee shows a right knee arthroplasty near anatomic alignment with a small right knee joint effusion. Patient placed in a knee immobilizer. X-ray of the left ankle and foot shows chronic findings, degenerative changes, no acute findings. Chest x-ray shows no acute cardiopulmonary process. EKG shows normal sinus rhythm rate of 76 ppm, normal WI interval, normal QRS duration, normal QTC, no ischemic changes. LAD. Troponin undetectable. Lab work shows no leukocytosis or anemia. Chemistries largely unremarkable other than mild elevation in liver enzymes. Lipase normal. No abdominal pain. Patient family updated on workup. Patient received Ragan and Protonix with significant improvement. Patient states chest pain is result after Protonix. Suspect this is secondary to GERD/dyspepsia. She is prescribed Protonix at home which I encouraged her to continue taking. Unfortunately, patient failed her ambulatory test despite using a walker. She is unable to ambulate secondary to right knee pain. Will obtain CT to evaluate for possible occult fracture. CT knee shows no fracture. Shared decision making with patient and at bedside. Given she is unable to care for herself, will consult care coordination for possible rehab placement. Care coordination unfortunately unable to place the patient out of ED given insurance. Patient needs to be admitted for placement. Discussed with hospitalist SCHOOL COMMUNITY RELATIONS COORDINATOR, Nino, who agrees to admission. <Lisa Mehta PA-C - Last Filed: 11/19/24 16:20> Lab Data Result diagrams: 11/19/24 10:54 11/19/24 10:54 <Lisa Mehta PA-C - Last Filed: 11/19/24 16:20> Labs: Lab Results 11/19/24 Range/Units 10:54 WBC 6.4 (4.5-10.0) K/mm3 RBC 4.58 (4.2-5.4) M/mm3 Hgb 12.3 (12.0-15.0) g/dL Hct 39.1 (37.0-47.0) % MCV 85.4 (80-100) fl MCH 26.9 (26-34) pg MCHC 31.5 L (32-36) g/dl RDW 13.5 (11.5-14.5) % Plt Count 227 (150-375) k/mm3 MPV 9.5 (7.4-10.4) fl Immature Gran % (Auto) 0.3 (0-0.5) % Neut % (Auto) 74.1 H (45.5-73.1) % Lymph % (Auto) 17.3 L (18.3-44.2) % [place] % (Auto) 5.8 (2.6-8.5) % Eos % (Auto) 1.9 (0-4.4) % Baso % (Auto) 0.6 (0.2-1.2) % Lymph # (Auto) 1.11 (0.9-3.2) K/mm3 [place] # (Auto) 0.4 (0.1-0.6) K/mm3 Eos # (Auto) 0.1 (0-0.3) K/mm3 Baso # (Auto) 0.0 (0.0-0.1) K/mm3 Abs Immat Gran (auto) 0.02 (0.00-0.031) K/mm3 Absolute Neuts (auto) 4.8 (1.3-6.7) K/mm3 Absolute Nucleated RBC 0.000 (0.0-0.012) K/mm3 Nucleated RBC % 0.0 (0.0-0.2) % PT 13.0 (11.1-14.7) Seconds INR 0.9 APTT 28.1 (22.3-36.8) Seconds Sodium 139 (137-145) mmol/L Potassium 4.3 (3.4-5.0) mmol/L Chloride 105 (98-107) mmol/L Carbon Dioxide 27 (22-30) mmol/L Anion Gap 7 (4-12) mmol/L BUN 20 H (7-17) mg/dL Creatinine 0.51 L (0.7-1.0) mg/dL Estim Creat Clear Calc 75 ml/min Estimated GFR > 60 (59 - ) Glucose 106 (65-110) mg/dL Calcium 9.0 (8.4-10.2) mg/dL Total Bilirubin 1.1 (0.2-1.3) mg/dL AST 70 H (14-36) U/L ALT 39 H (6-35) U/L Alkaline Phosphatase 128 H (38-126) U/L Troponin I < 0.012 (0.000-0.034) ng/mL Total Protein 7.0 (6.3-8.2) g/dL Albumin 3.8 (3.5-5.1) g/dL Lipase 89 (23-300) U/L <Lisa Mehta PA-C - Last Filed: 11/19/24 16:20> Lab Results 11/19/24 Range/Units 10:54 WBC 6.4 (4.5-10.0) K/mm3 RBC 4.58 (4.2-5.4) M/mm3 Hgb 12.3 (12.0-15.0) g/dL Hct 39.1 (37.0-47.0) % MCV 85.4 (80-100) fl MCH 26.9 (26-34) pg MCHC 31.5 L (32-36) g/dl RDW 13.5 (11.5-14.5) % Plt Count 227 (150-375) k/mm3 MPV 9.5 (7.4-10.4) fl Immature Gran % (Auto) 0.3 (0-0.5) % Neut % (Auto) 74.1 H (45.5-73.1) % Lymph % (Auto) 17.3 L (18.3-44.2) % [place] % (Auto) 5.8 (2.6-8.5) % Eos % (Auto) 1.9 (0-4.4) % Baso % (Auto) 0.6 (0.2-1.2) % Lymph # (Auto) 1.11 (0.9-3.2) K/mm3 [place] # (Auto) 0.4 (0.1-0.6) K/mm3 Eos # (Auto) 0.1 (0-0.3) K/mm3 Baso # (Auto) 0.0 (0.0-0.1) K/mm3 Abs Immat Gran (auto) 0.02 (0.00-0.031) K/mm3 Absolute Neuts (auto) 4.8 (1.3-6.7) K/mm3 Absolute Nucleated RBC 0.000 (0.0-0.012) K/mm3 Nucleated RBC % 0.0 (0.0-0.2) % PT 13.0 (11.1-14.7) Seconds INR 0.9 APTT 28.1 (22.3-36.8) Seconds Sodium 139 (137-145) mmol/L Potassium 4.3 (3.4-5.0) mmol/L Chloride 105 (98-107) mmol/L Carbon Dioxide 27 (22-30) mmol/L Anion Gap 7 (4-12) mmol/L BUN 20 H (7-17) mg/dL Creatinine 0.51 L (0.7-1.0) mg/dL Estim Creat Clear Calc 75 ml/min Estimated GFR > 60 (59 - ) Glucose 106 (65-110) mg/dL Calcium 9.0 (8.4-10.2) mg/dL Total Bilirubin 1.1 (0.2-1.3) mg/dL AST 70 H (14-36) U/L ALT 39 H (6-35) U/L Alkaline Phosphatase 128 H (38-126) U/L Troponin I < 0.012 (0.000-0.034) ng/mL Total Protein 7.0 (6.3-8.2) g/dL Albumin 3.8 (3.5-5.1) g/dL Lipase 89 (23-300) U/L <Jeison Cherry MD - Last Filed: 11/19/24 19:20> Discharge Plan Discharge Clinical Impression: Dyspepsia Strain of right knee Qualifiers: Encounter type: initial encounter Qualified Code(s): S86.911A - Strain of unspecified muscle(s) and tendon(s) at lower leg level, right leg, initial encounter Closed head injury Qualifiers: Encounter type: initial encounter Qualified Code(s): S09.90XA - Unspecified injury of head, initial encounter <Lisa Mehta PA-C - Last Filed: 11/19/24 16:20> Patient Disposition: Home, Self-Care <Lisa Mehta PA-C - Last Filed: 11/19/24 16:20> Condition: Stable <Lisa Mehta PA-C - Last Filed: 11/19/24 16:20>
[2024-11-19] MEDS: HYDROcodone/acetaminophen (*CRX) 5-325 MG TABLET 1 TAB PO ×3 (10:51→23:06)
[2024-11-19] MEDS: PANTOPRAZOLE SODIUM IV 40 MG VIAL IV PUSH (10:51)
[2024-11-19 11:05] LABS: Basophils Percent Auto 0.6 % (0.2-1.2); Eosinophils Absolute Auto 0.1 K/mm3 (0-0.3); Eosinophils Percent Auto 1.9 % (0-4.4); Hematocrit 39.1 % (37.0-47.0); Hemoglobin 12.3 g/dL (12.0-15.0); Immature Granulocyte Absolute 0.02 K/mm3 (0.00-0.031); Immature Granulocyte Percent A 0.3 % (0-0.5); Lymphocytes Absolute Auto 1.11 K/mm3 (0.9-3.2); Lymphocytes Percent Auto 17.3 % (18.3-44.2); Mean Corpuscular HGB Conc 31.5 g/dl (32-36); Mean Corpuscular Hemoglobin 26.9 pg (26-34); Mean Corpuscular Volume 85.4 fl (80-100); Mean Platelet Volume 9.5 fl (7.4-10.4); Monocytes Absolute Auto 0.4 K/mm3 (0.1-0.6); Monocytes Percent Auto 5.8 % (2.6-8.5); Neutrophils Absolute Auto 4.8 K/mm3 (1.3-6.7); Neutrophils Percent Auto 74.1 % (45.5-73.1); Platelet Count Result 227 k/mm3 (150-375); Red Blood Count 4.58 M/mm3 (4.2-5.4); Red Cell Distribution Width 13.5 % (11.5-14.5); White Blood Count 6.4 K/mm3 (4.5-10.0)
[2024-11-19 11:19] LABS: Alanine Aminotransferase 39 U/L (6-35); Albumin Level 3.8 g/dL (3.5-5.1); Alkaline Phosphatase 128 U/L (38-126); Anion Gap 7 mmol/L (4-12); Aspartate Amino Transferase 70 U/L (14-36); Bilirubin,Total 1.1 mg/dL (0.2-1.3); Blood Urea Nitrogen 20 mg/dL (7-17); Carbon Dioxide 27 mmol/L (22-30); Chloride 105 mmol/L (98-107); Estimated CRCL calculation 75 ml/min; Estimated Glomerular Filt Rate > 60; Glucose 106 mg/dL (65-110); Lipase 89 U/L (23-300); Potassium 4.3 mmol/L (3.4-5.0); Sodium 139 mmol/L (137-145)
--- OUTSIDE RECORDS SUMMARY | 2024-11-19 11:28 | XMS_ITS | Referral Summary ---
Author Organization [facility] Address [address] [place] [address] Care Team Providers Care Back Digger Operator Name Role Phone Romeo Flannery MD Primary Care Provider [phone] Source Comments [facility],non-owned Affiliates and Associated Physician Practices is amultiple site organization consisting of ambulatory clinics and hospital sitesin [place], [place], [place] and [place]. This disclosure is being madepursuant to the Care Everywhere program and may not contain all information available regarding this patient. Last updated 18.[facility] Social History Tobacco Use Types Packs/Day Years Used Date Smoking Tobacco: Never Assessed Sex and Gender Information Value Date Recorded Sex Assigned at Not on file Gender Identity Not on file Sexual Orientation Not on file Plan of Treatment Not on file Care Teams Back Digger Operator Relationship Specialty Start Date End Date Romeo Flannery MD [address] [place] [address] PCP - General 06/09/12
--- OUTSIDE RECORDS SUMMARY | 2024-11-19 11:28 | XMS_ITS | Clinical Summary ---
Author Organization [facility] Address [address] [place] [address] Care Team Providers Care Linen Room Attendant Name Role Phone Romeo Flannery MD Primary Care Provider [phone] [facility],non-owned Affiliates and Associated Physician Practices is amultiple site organization consisting of ambulatory clinics and hospital sitesin [place], [place], [place] and [place]. This disclosure is being madepursuant to the Care Everywhere program and may not contain all information available regarding this patient. Last updated 18.[facility] Social History Tobacco Use Types Packs/Day Years Used Date Smoking Tobacco: Never Assessed Sex and Gender Information Value Date Recorded Sex Assigned at Not on file Gender Identity Not on file Sexual Orientation Not on file Plan of Treatment Health Maintenance Due Date Last Done Comments BONE DENSITY TESTING 1950 COLOGUARD (AGES 45-75) - COL ON CA SCREENING 1950 COLON MONITORING 1950 COLONOSCOPY - COLON CA SCREENING 1950 CT COLONOGRAPHY - COLON CA SCREENING 1950 Colorectal Cancer Screening 1950 FIT - COLON CA SCREENING 1950 FLEX SIG - COLON CA SCREENING 1950 LIPID TESTING 1950 MAMMOGRAM 1950 HEPATITIS C SCREENING 09/29/1968 DTAP/TDAP/TD VACCINES (1 - Tdap) 1969 PNEUMOCOCCAL VACCINE 50+ (1 of 1 - PCV) 2000 ZOSTER VACCINE (1 of 2) 2000 COVID-19 VACCINE ( - 2023-2 5 season) 2024 INFLUENZA VACCINE (#1) 2024 DEPRESSION SCREENING 10/13/2024 Respiratory Syncytial Virus (RSV) Vaccine Pt: or over 60 yrs (1 - 1-dose 75+ series) 2025 HEPATITIS B VACCINE Aged Out No longe r eligible based on patient's age to complete this topic HIB VACCINE Aged Out No longer eligi ble based on patient's age to complete this topic HPV VACCINE Aged Out No longer eligi ble based on patient's age to complete this topic MENINGOCOCCAL (Group B) VACCINE Aged Out No longer eligible based on patient's age to complete this topic MENINGOCOCCAL VACCINE Aged Out No king kevin eligible based on patient's age to complete this topic Care Teams Linen Room Attendant Relationship Specialty Start Date End Date Romeo Flannery MD [address] [place] [address] PCP - General 06/09/12
--- OUTSIDE RECORDS SUMMARY | 2024-11-19 11:28 | XMS_ITS | Encounter Summary ---
Author Organization [facility] Address [address] [place] [address] Care Team Providers Care Radiation Oncologist Name Role Phone Romeo Flannery MD Primary Care Provider [phone] Encounter Details Date Type Department Care Team (Late st Contact Info) Description 12/12/2022 Lab Requisition [facility] [address] [place] [id number] [place] [address] Social History Tobacco Use Types Packs/Day Years Used Date Smoking Tobacco: Never Assessed Sex and Gender Information Value Date Recorded Sex Assigned at Not on file Gender Identity Not on file Sexual Orientation Not on file documented as of this encounter Plan of Treatment Not on file documented as of this encounter Procedures Procedure Name Priority Date/Time Associated Diagnosis Comments DERMATOPATHOLOGY Routine 12/11/2022 3:[address] ADMINISTRATOR documented in this encounter Results * DERMATOPATHOLOGY (12/11/2022 3:[address] ADMINISTRATOR) Case Report Dermatopathology Report Case: [id number] Authorizing Provider: Bonifacio Jiang MD Collected: 12/11/2022 03:33 AM Ordering Location: [facility] Received: 12/12/2022 02:17 PM Pathologist: Radha Rangel MD Specimen: Skin, left sup buttock 1:[address] ADMINISTRATOR DERMATOPATHOLOGY LABORATORY Final Diagnosis Specimen A. SKIN, left sup buttock: NEVUS LIPOMATOSUS SUPERFICIALIS (D17.30) 3 1:[address] ADMINISTRATOR DERMATOPATHOLOGY LABORATORY Clinical History R/O inflammed Nevus, Lipomatosus hamartoma 3 1:[address] ADMINISTRATOR DERMATOPATHOLOGY LABORATORY Gross Description Specimen A: Received is one formalin filled container labeled with the patient's name and designated left sup buttock. The specimen consists of a [id number] mm piece of skin. The margin is inked green. The specimen is bisected lengthwise and submitted in 4 cassettes. Jar 0. 3 1:[address] ADMINISTRATOR DERMATOPATHOLOGY LABORATORY Microscopic Description Specimen A. SKIN, left sup buttock: There is a gently folded epidermis surrounding a connective tissue core in which fat and collagen are intermingled. 3 1:[address] ADMINISTRATOR DERMATOPATHOLOGY LABORATORY Disclaimer An external and internal positive and negative controls are appropriate for the histochemical, immunohistochemical and immunofluorescence stain(s) in this case (if any), except where stated explicitly. The performance characteristics of the stain(s) cited in this report were developed and its performance characteristic determined by the Dermatopathology Laboratory at [facility], directed by Dr. Eh Leahy. These tests need not be, and therefore are not, approved by the [place] Food and Drug Administration. The tests are used for clinical purposes. Billing Codes Specimen Charges Stain Charges 12504 1 3 1:[address] ADMINISTRATOR DERMATOPATHOLOGY LABORATORY Embedded Images [address] 1:[address] ADMINISTRATOR DERMATOPATHOLOGY LABORATORY Pathology/Cytolo gy TISSUE SPECIMEN FROM SKIN / Unknown 12/11/2022 3:[address] ADMINISTRATOR 12/12/2022 2:[address] ADMINISTRATOR Bonifacio Jiang MD LAB - PATHOLOGY/CYTO LOGY ORDERABLES DERMATOPATHOLOGY LABORATORY [facility] - Department of Dermatology [address] [phone] documented in this encounter Visit Diagnoses Not on filedocumented in this encounter Care Teams Radiation Oncologist Relationship Specialty Start Date End Date Romeo Flannery MD [address] [place], [place] [id number] PCP - General 06/09/12 documented as of this encounter
--- OUTSIDE RECORDS SUMMARY | 2024-11-19 11:28 | XMS_ITS | Referral Summary ---
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 38.9 in adult; Gastroesophageal reflux disease without esophagitis; Metabolic disorder; Mixed hyperlipidemia; Nonalcoholic hepatosteatosis 09/21/2024 Telephone [facility] [address] [place] [address] Phiumu, Ni, TRANSFORMER COIL WINDER 09/20/2024 Orders Only [facility] [address] [place] [address] Office [address] [place] [phone] Phikenntjerd, Ni, TRANSFORMER COIL WINDER 09/20/2024 10:30 AM VASCULAR TECHNICIAN Telemedicine [facility] [address] [place] [address] Medical Office [address] [place] [address] Robert Clayton PA Encounter for weight loss counseling (Primary Dx); Class 2 severe obesity with serious comorbidity and body mass index (BMI) of 38.0 to 38.9 in adult, unspecified obesity type (HCC); Metabolic disorder from Last 3 Months Allergies Active Allergy Reactions Criticality Noted Date Comments Azithromycin Other (See comments) Reaction: DIARRHEA Cephalosporins Other (See comments) Reaction: DIARRHEA Erythromycin Other (See comments) Reaction: DIARRHEA Sodium Hyaluronate (Viscosup) Unknown 12/29/2018 Penicillins Rash Reaction: RASH Sulfa (Sulfonamide Antibiotics) Rash Reaction: RASH Medications ibuprofen (ADVIL,MOTRIN) 600 mg tablet 4 Active cholestyramine (QUESTRAN) 4 gram packet MIX 4 GRAMS IN 4-8OZ OF WATER AND DRINK TWICE DAILY 0 Active dicyclomine (BENTYL) 10 mg capsule TK 1 C PO BID 0 Active cetirizine HCl (ZYRTEC ORAL) Take by mouth Active atorvastatin (LIPITOR) 10 mg tablet Take 1 tablet (10 mg total) by mouth daily [address] (PROTONIX) 40 mg EC tablet Take 1 tablet (40 mg total) by mouth every morning 2 Active melatonin 5 mg tablet Active gabapentin (NEURONTIN) 400 mg capsule TAKE ONE CAPSULE BY MOUTH EVERY MORNING AND 2 CAPSULES EVERY EVENING for 30 Active Gemtesa 75 mg tablet daily Active buPROPion SR (WELLBUTRIN SR) 150 mg 12 hr tablet Take 1 tablet (150 mg total) by mouth 2 (two) times a day Take 1 tablet daily for 1 week, then increase to 1 tablet twice daily; take at least 8 hours apart. 60 tablet 1 5 Active phendimetrazine tartrate 105 mg capsule, extended releaseIndicatio ns:Class 2 drug-induced obesity with serious comorbidity and body mass index (BMI) of 38.0 to 38.9 in adult Take 1 capsule by mouth daily 30 capsule 2 5 Active traMADoL (ULTRAM) 50 mg tablet daily 11/05/19 25 Discontinu ed(Patient Reported) phendimetrazine tartrate 105 mg capsule, extended release Take 1 capsule by mouth daily 30 capsule 2 4 11/05/19 25 Discontinu ed(Reorder ) buPROPion (WELLBUTRIN) 100 mg tablet Take 1 tablet (100 mg total) by mouth 2 (two) times a day 60 tablet 11 4 11/05/19 25 Discontinu ed(Alterna te therapy) semaglutide (Rybelsus) 3 mg tablet Take 1 tablet (3 mg total) by mouth daily 60 tablet 4 11/03/19 25 Discontinu ed(Other) Active Problems Problem Noted Date Diagnosed Date Class 2 severe obesity with serious comorbidity and body mass index (BMI) of 38.0 to 38.9 in adult 09/20/2024 Assessment & Plan (11/05/2024 10:39 AM VASCULAR TECHNICIAN): Patient's initial BMI was 38; this has improved to 33 through medical management Assessment & Plan (09/20/2024 10:45 AM VASCULAR TECHNICIAN): Patient's initial BMI was 38; this has improved to 33 through medical management Obesity, Class I, BMI 30-34.9 04/27/2024 Assessment & Plan (07/26/2024 7:42 AM CDT): Patient's initial BMI was 38; this has improved to 34 through medical and lifestyle management Encounter for weight loss counseling 04/19/2024 Assessment & Plan (11/05/2024 3:44 PM VASCULAR TECHNICIAN): Rx INDIVIDUALIZED FIRST LINE THERAPY PHYSICAL ACTIVITY: AEROBIC: Cardio: 36 minutes daily, Goal: 250min/week. DEEP RELAXATION EXERCISES: 1) Imagine Clarity ann marie 2) Head Space ann marie SLEEP: Good sleep hygiene discussed WATER: 1) Water: 80ounces/day 2) No soft drinks 3) No Juice 4) No Milk 5) Avoid alcoholic beverages 6) May have : Flavored tea (no artificial sweeteners or sugar) 7) May have: Green tea 8) May have: Coffee (maximum 1-2 cups of caffeinated per day, the rest decaf) FOOD/ NUTRITION: 1) Intervention: Personalized low glycemic foods Smaller Portion size Stop eating before you get full 2) Avoid: Eating out Added Salt Added Sugar, Dessert Processed food Ultra- Processed food PHARMACOTHERAPY: Continue Phendimetrazine and Rybelsus INCREASE Bupropion to 150 mg twice daily. Discussed adding Metformin- she will consider. Assessment & Plan (09/20/2024 10:45 AM VASCULAR TECHNICIAN): Rx INDIVIDUALIZED FIRST LINE THERAPY PHYSICAL ACTIVITY: AEROBIC: Cardio: 36 minutes daily, Goal: 250min/week. DEEP RELAXATION EXERCISES: 1) Imagine Clarity ann marie 2) Head Space ann marie SLEEP: Good sleep hygiene discussed WATER: 1) Water: 80ounces/day 2) No soft drinks 3) No Juice 4) No Milk 5) Avoid alcoholic beverages 6) May have : Flavored tea (no artificial sweeteners or sugar) 7) May have: Green tea 8) May have: Coffee (maximum 1-2 cups of caffeinated per day, the rest decaf) FOOD/ NUTRITION: 1) Intervention: Personalized low glycemic foods Smaller Portion size Stop eating before you get full 2) Avoid: Eating out Added Salt Added Sugar, Dessert Processed food Ultra- Processed food PHARMACOTHERAPY: Continue with current doses of medication. Assessment & Plan (07/26/2024 1:56 PM CDT): Rx INDIVIDUALIZED FIRST LINE THERAPY PHYSICAL ACTIVITY: AEROBIC: Cardio: 36 minutes daily, Goal: 250min/week. DEEP RELAXATION EXERCISES: 1) Imagine Clarity ann marie 2) Head Space ann marie SLEEP: Good sleep hygiene discussed WATER: 1) Water: 80ounces/day 2) No soft drinks 3) No Juice 4) No Milk 5) Avoid alcoholic beverages 6) May have : Flavored tea (no artificial sweeteners or sugar) 7) May have: Green tea 8) May have: Coffee (maximum 1-2 cups of caffeinated per day, the rest decaf) FOOD/ NUTRITION: 1) Intervention: Personalized low glycemic foods Smaller Portion size Stop eating before you get full 2) Avoid: Eating out Added Salt Added Sugar, Dessert Processed food Ultra- Processed food PHARMACOTHERAPY: Continue phendimetrazine and Rybelsus. Start taking Bupropion SR 100mg once a day (with breakfast )for 1 week ---if you tolerate it well, increase to twice daily ( with breakfast and dinner) You should try to take this medication with a meal. This medication is one of the components of Contrave( brand name antiobesity medication) and helps to increase dopamine activity in the brain which appears to decrease appetite and increase energy expenditure by working through POMC neurons in your brain. This medication is commonly used to control depression, anxiety and possibly to help stop smoking. Possible side effects are headache, dry mouth, nausea, dizziness and/or insomnia. Contact the office if you develop any unusual symptoms while on this medication. In some patients, this medication can elevated blood pressure, please check your blood pressure and pulse rate regularly and report to the office if they are abnormal. If you have history of seizures or eating disorder, you should avoid taking this medication. Metabolic disorder 04/19/2024 Assessment & Plan (11/05/2024 10:39 AM VASCULAR TECHNICIAN): Obesity is one of the leading risk factor for mortality. Metabolically healthy obese individuals had 49% increased risk of coronary artery disease, 7% increased risk of cerebrovascular disease and 96% increased risk of heart failure. In other words, even individuals who are normal weight can have metabolic abnormalities and similar risk for cardiac vascular disease events. Thus, the complications that may result from metabolic syndrome and frequently serious and chronic. They include atherosclerosis, diabetes, myocardial infarction, renal disease, cardiovascular events such as stroke, nonalcoholic fatty liver disease, peripheral artery disease, and cardiovascular diseases. Diabetes can develop; there is an increased risk of retinopathy, neuropathy, renal disease and amputation of limbs. Therefore, treating obesity and obesity related diseases is exceedingly crucial. Improving the hypertrophic adipocytes function and decrease insulin resistance is the main goal of the treatment. Furthermore, an emerging concept that the anti-obesity agents must not only reduce the hypertrophic adipocytes but must also correct the fat dysfunction, adiposopathy. Weight loss is associated with increases in mean suppression of glucose production from baseline, is associated with increase insulin stimulated in glucose disposal from fat-free mass and weight loss increased beta cell function. In other words, weight loss change in hepatic insulin sensitivity and muscle insulin sensitivity, beta cell function and a 24-hour plasma glucose and insulin profiles. Our goal is and decreasing the weight between 16 and 20% which will significantly decrease the risk of morbidity and mortality. Assessment & Plan (09/20/2024 7:49 AM VASCULAR TECHNICIAN): See below. Assessment & Plan (07/26/2024 7:42 AM CDT): See below Mixed hyperlipidemia 04/19/2024 Assessment & Plan (11/05/2024 10:40 AM VASCULAR TECHNICIAN): Continue current weight loss plan as outlined in note with close monitoring with routine lab work. Weight loss of 5-10% can show a reduction in HDL cholesterol. Cruz Gill JP, Tewksbury C, et al. Nutritional considerations with antiobesity medications. Obesity ([place]). 2023; 1-19. doi:[email or web address] Gastroesophageal reflux disease without esophagi tis 04/19/2024 Assessment & Plan (11/05/2024 10:39 AM VASCULAR TECHNICIAN): Continue current weight loss plan as outlined in note. Discuss low acid diet and use of antacid medications if necessary. A weight reduction of 10-15% body weight can result in improved symptom severity and frequency. Cruz Gill JP, Tewksbury C, et al. Nutritional considerations with antiobesity medications. Obesity ([place]). 2023; 1-19. doi:[email or web address] Nonalcoholic hepatosteatosis 04/19/2024 Assessment & Plan (11/05/2024 10:40 AM VASCULAR TECHNICIAN): WL of 7.5- 10 % the body weight. Monitor liver enzymes and platelets. Further hepatological evaluation to be recommended if no WL loss, persistent transaminitis and thrombocytopenia. #1 Lifestyle intervention: Weight loss of 10% of body weight, decrease calorie intake, decrease fat intake, decrease fructose intake, decrease alcohol intake, and increase physical exercise. #2 Insulin sensitizers: The metformin. #3 Consider weight loss medications: #4 Cholesterol synthesis regulation: Consider statin #5 Considers antioxidants and Urodeoxycholic acid #6 Consider probiotics #7 monitor liver enzymes and platelets #8 After aggressive treatment, if there is no weight loss by approximately 10% or persistent transaminitis and thrombocytopenia, we will consider further pathological evaluation Osteopenia 12/31/2018 Malignant neoplasm of left b reast in female, estrogen receptor positive 12/29/2018 Immunizations Name Administration Dates Next Due Influenza, Quadrivalent, Hig h Dose, Preservative Free, Intrr 07/25/2020 Influenza, Trivalent, High D ose, Split, Preservative Free, Intramuscular 07/30/2019,08/19/2018 Influenza, Unspecified 08/16/2014 Pfizer SARS-CoV-2 Monovalent Vaccination (12+ Yrs) PURPLE 07/07/2021,12/17/2020,11/19/2020 Pneumococcal Polysaccharide PPV23 03/13/2018 Social History Tobacco Use Types Packs/Day Years Used Date Smoking Tobacco: Former Cigarettes 1 10 1 973 - 1982 Smokeless Tobacco: Never Tobacco Cessation:Counseling Given: Not Answered Comments:last couple of years pt smoked one pack before then was less than one pack Alcohol Use Standard Drinks/Week Comments Yes 0 (1 standard drink = 0.6 oz pur e alcohol) occasionally AUDIT-C Answer Date Recorded Q1: How often do you have a drink containing alc ohol? Never 07/26/2024 Average Number of Drinks Not on file 024 Frequency of Binge Drinking Not on file 07/13 Comments Unknown Sex and Gender Information Value Date Recorded Sex Assigned at Not on file Legal Sex Female 1:17 AM VASCULAR TECHNICIAN Gender Identity Not on file Sexual Orientation Not on file Last Filed Vital Signs Vital Sign Reading Time Taken Comments Blood Pressure 117/79 07/26/2024 1:25 PM CDT Pulse 81 07/26/2024 1:25 PM CDT Temperature 37.1 C (98.8 F) 04/27/2024 11:37 AM CDT Respiratory Rate 16 12/24/2021 1:42 PM CDT Oxygen Saturation 97% 07/26/2024 1:25 PM CDT Inhaled Oxygen Concentration - - Weight 78.5 kg (173 lb) 11/05/2024 3:26 PM VASCULAR TECHNICIAN h ome weight Height 152.4 cm (5') 11/05/2024 3:26 PM VASCULAR TECHNICIAN Body Mass Index 33.79 11/05/2024 3:26 PM VASCULAR TECHNICIAN Plan of Treatment Not on file Insurance [employer] MEDICARE MEDICARE SOLUTIONS [facility] MEDIC[facility] Address: [address] [address] [place] [address] Care Teams Monogram Machine Operator Relationship Specialty Start Date End Date Zabrina Cox MD PCP - General Family Medicine 12/25/20 Babar Quezada MD Referring Physician Plastic Surgery 12/29/18
--- OUTSIDE RECORDS SUMMARY | 2024-11-19 11:28 | XMS_ITS | Clinical Summary ---
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 Assessment & Plan (09/20/2024 10:45 AM WEATHERIZATION CREW LEADER): Rx INDIVIDUALIZED FIRST LINE THERAPY PHYSICAL ACTIVITY: [...] 04/19/2024 Assessment & Plan (11/05/2024 10:39 AM [facility]): Obesity is one of the leading risk [...] mortality. Assessment & Plan (09/20/2024 7:49 AM WEATHERIZATION CREW LEADER): See below. Assessment & Plan (07/26/2024 7:42 AM CDT): See below Mixed hyperlipidemia 04/19/2024 Assessment & Plan (11/05/2024 10:40 AM WEATHERIZATION CREW LEADER): Continue current weight loss plan as outlined in note with close monitoring with routine lab work. Weight loss of 5-10% can show a reduction in HDL cholesterol. Cruz Gill JP, Tewksbury C, et al. Nutritional considerations with antiobesity medications. Obesity ([place]). 2023; 1-19. doi:[email or web address] Gastroesophageal reflux disease without esophagi tis 04/19/2024 Assessment & Plan (11/05/2024 10:39 AM WEATHERIZATION CREW LEADER): Continue current weight loss plan as outlined in note. Discuss low acid diet and use of antacid medications if necessary. A weight reduction of 10-15% body weight can result in improved symptom severity and frequency. Cruz Gill JP, Tewksbury C, et al. Nutritional considerations with antiobesity medications. Obesity ([place]). 2023; 1-19. doi:[email or web address] Nonalcoholic hepatosteatosis 04/19/2024 Assessment & Plan (11/05/2024 10:40 AM WEATHER[employer]ATION CREW LEADER): WL of 7.5- 10 % the body [...] reast in female, estrogen receptor positive 12/29/2018 Encounters Date Type Department Care Team Description 11/05/2024 3:30 PM WEATHERIZATION CREW LEADER Telemedicine [facility] [address] [place] [address] Medical Office Building [address] [place] [phone] Robert Clayton PA Encounter for weight loss counseling (Primary Dx); Class 2 drug-induced obesity with serious comorbidity and body mass index (BMI) of 38.0 to 38.9 in adult; Gastroesophageal reflux disease without esophagitis; Metabolic disorder; Mixed hyperlipidemia; Nonalcoholic hepatosteatosis 09/21/2024 Telephone [facility] [address] [place] [address] [address] [place] [address] Maryan Martinez CMA 09/20/2024 10:30 AM [employer]W LEADER Telemedicine [facility] [address] [place] [address] Office [address] [place] [phone] Robert Clayton PA Encounter for weight loss counseling (Primary Dx); Class 2 severe obesity with serious comorbidity and body mass index (BMI) of 38.0 to 38.9 in adult, unspecified obesity type (HCC); Metabolic disorder 09/20/2024 Orders Only [facility] [address] [place] [address] Office [address] [place] [phone] Maryan Martinez CMA from Last 3 Months Immunizations Name Administration Dates Next Due Influenza, Quadrivalent, Hig h Dose, Preservative Free, Intrr 07/25/2020 Influenza, Trivalent, High D ose, Split, Preservative Free, Intramuscular 07/30/2019,08/19/2018 Influenza, Unspecified 08/16/2014 Pfizer SARS-CoV-2 Monovalent Vaccination (12+ Yrs) PURPLE 07/07/2021,12/17/2020,11/19/2020 Pneumococcal Polysaccharide PPV23 03/13/2018 Surgical History Surgery Date Site/Laterality Comments COLONOSCOPY BREAST RECONSTRUCTION BREAST LUMPECTOMY BREAST BIOPSY Medical History Medical History Date Comments Breast cancer (HCC) Family History Medical History Relation Name Comments Pancreatic cancer Maternal Grandmother Relation Name Status Comments Maternal Grandmother Social History Tobacco Use Types Packs/Day Years Used Date Smoking Tobacco: Former Cigarettes 1 10 1 1982 Smokeless Tobacco: Never Tobacco Cessation:Counseling Given: [...] on file Legal Sex Female 1:17 AM WE[employer]ATION [employer]W LEADER Gender Identity Not on file Sexual Orientation Not on file Obstetrics History Last Filed Vital Signs Vital Sign Reading Time Taken Comments Blood Pressure 117/79 07/26/2024 1:25 PM CDT Pulse 81 07/26/2024 1:25 PM CDT Temperature 37.1 C (98.8 F) 04/27/2024 11:37 AM CDT Respiratory Rate 16 12/24/2021 1:42 PM CDT Oxygen Saturation 97% 07/26/2024 1:25 PM CDT Inhaled Oxygen Concentration - - Weight 78.5 kg (173 lb) 11/05/2024 3:26 PM WEATHERIZATION CREW LEADER h ome weight Height 152.4 cm (5') 11/05/2024 3:26 PM WEATHERIZATION CREW LEADER Body Mass Index 33.79 11/05/2024 3:26 PM WEATHERIZATION CREW LEADER Plan of Treatment Health Maintenance Due Date Last Done Comments Breast Cancer Screening-Mammogram 1950 Colon Cancer Screening-Colonoscopy 1950 Depression Screening 1950 Fall Risk Assessment 1950 Hepatitis C Screening 1950 Osteoporosis Screening-Bone Density Scan 1950 DTaP/Tdap/Td Vaccine (1 - Tdap) 1961 Hepatitis B Screening 1968 Zoster Vaccine (1 of 2) 2000 Well Visit 65+ 2015 Pneumococcal vaccine 65+ (2 of 2 - PCV) 03/13/2019 03/13/2018 Covid-19 Vaccine (4 - 2023-2 5 season) 2024 07/07/2021, 12/17/2020, 11/19/2020 Influenza Vaccine (#1) 2024 , 07/30/2019, 08/19/2018, Additional history exists Insurance [employer] [place] [address] Care Teams Production Support Engineer Relationship Specialty Start Date End Date Zabrina Cox MD PCP - General Family Medicine 12/25/20 Babar Quezada MD Referring Physician Plastic Surgery 12/29/18
--- OUTSIDE RECORDS SUMMARY | 2024-11-19 11:28 | XMS_ITS | Patient Health Summary ---
Author Organization [facility] Address [address] [place] [address] Care Team Providers Care Behavioral Health Associate Name Role Phone Romeo Flannery MD Primary Care Provider [phone] Note from [facility],non-owned Affiliates and Associated Physician Practices is amultiple site organization consisting of ambulatory clinics and hospital sitesin [place], [place], [place] and [place]. This disclosure is being madepursuant to the Care Everywhere program and may not contain all information available regarding this patient. Last updated 18.[facility] Social History Tobacco Use Types Packs/Day Years Used Date Smoking Tobacco: Never Assessed Sex and Gender Information Value Date Recorded Sex Assigned at Not on file Gender Identity Not on file Sexual Orientation Not on file Procedures * DERMATOPATHOLOGY(Performed 12/11/2022) * DERMATOPATHOLOGY(Performed 02/28/2017) Results * DERMATOPATHOLOGY (12/11/2022 3:33 AM CONTROL ELECTRICIAN) Only the most recent of2 resultswithin the time period is included. Case Report Dermatopathology Report Case: [id number] Authorizing Provider: Bonifacio Jiang MD Collected: 12/11/2022 03:33 AM Ordering Location: [facility] DermPath Lab Received: 12/12/2022 02:17 PM Pathologist: Radha Rangel MD Specimen: Skin, left sup buttock 3 1:51 PM CONTROL ELECTRICIAN DERMATOPATHOLOGY LABORATORY Final Diagnosis Specimen A. SKIN, left sup buttock: NEVUS LIPOMATOSUS SUPERFICIALIS (D17.30) 3 1:51 PM [facility]LECTRICIAN DERMATOPATHOLOGY LABORATORY Clinical History R/O inflammed Nevus, Lipomatosus hamartoma 3 1:51 PM [facility] DERMATOPATHOLOGY [facility]ORAT[facility] Gross Description Specimen A: Received is one formalin filled container labeled with the patient's name and designated left sup buttock. The specimen consists of a [id number] mm piece of skin. The margin is inked green. The specimen is bisected lengthwise and submitted in 4 cassettes. Jar 0. 3 1:51 PM [facility] DERMATOPATHOLOGY LABORATORY Microscopic Description Specimen A. SKIN, left sup buttock: There is a gently folded epidermis surrounding a connective tissue core in which fat and collagen are intermingled. 1:51 PM [facility] DERMATOPATHOLOGY LABORATORY Disclaimer An external and internal positive and negative controls are appropriate for the histochemical, immunohistochemical and immunofluorescence stain(s) in this case (if any), except where stated explicitly. The performance characteristics of the stain(s) cited in this report were developed and its performance characteristic determined by the Dermatopathology Laboratory at [facility], directed by Dr. Eh Leahy. These tests need not be, and therefore are not, approved by the [place] Food and Drug Administration. The tests are used for clinical purposes. Billing Codes Specimen Charges Stain Charges 58647 1 3 1:51 PM [facility] DERMATOPATHOLOGY LABORATORY Embedded Images 3 1:51 PM [facility] DERMATOPATHOLOGY LABORATORY Pathology/Cytolo gy TISSUE SPECIMEN FROM SKIN / Unknown 12/11/2022 3:33 AM CONTROL ELECTRICIAN 12/12/2022 2:17 PM [facility] Bonifacio Jiang MD LAB - PATHOLOGY/CYTO LOGY ORDERABLES DERMATOPATHOLOGY LABORATORY [facility] - Department of Dermatology [facility] Medicine [address] [place] [address], [address] [phone] Care Teams Behavioral Health Associate Relationship Specialty Start Date End Date Romeo Flannery MD [address] [place] [address] PCP - General 06/09/12
--- OUTSIDE RECORDS SUMMARY | 2024-11-19 11:29 | XMS_ITS ---
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 Name Role Phone Zabrina Cox Primary Care Provider Unavail able YARITZA TREVINO Unavailable [phone] AHSAN HOLM Unavailable Unavailable Elizabeth Handley Unavailable [phone] Allergies Allergen (clinical drug ingredient) Drug/Non Drug Allergy documented on EMR Reaction Allergy Type Onset Date Status Hyaluronate Sodium Unknown Drug Allergy Active Hyaluronic Acid Unknown Drug Allergy A ctive azithromycin Azithromycin Unknown Drug Allergy A ctive Medicinal cephalosporin and acting as antibacterial agent (FN) Cephalosporins Unknown Drug Allergy Active erythromycin Erythromycin Unknown Drug Allergy A ctive naproxen Naproxen Unknown Drug Allergy Active Penicillin Unknown Drug Allergy Active Substance with sulfonamide structure and antibacterial mechanism of action (substance) Sulfa Antibiotics Unknown Drug Allergy Active REASON FOR VISIT lower back pain Medications Medication SIG (Take, Route, Frequency, Duration) Notes Start Date End Date Status Atorvastatin Calcium 10 MG 1 tablet Oral ly Once a day for 30 day(s) Active Pantoprazole Sodium 40 MG 1 tablet Orall y Once a day for 30 day(s) Active Gabapentin 400 MG TAKE ONE CAPSULE BY MOUTH EVERY MORNING AND 2 CAPSULES EVERY EVENING for 30 Active Dicyclomine HCl Acti ve Wixela Inhub 500-50 MCG/ACT 1 puff Inhal ation Twice a day 02/12/2024 Active ZyrTEC Allergy 10 MG 1 tablet Orally Onc e a day for 30 day(s) Active Melatonin 5 MG 1 tablet in the evening Orally Once a day for 30 day(s) Active Ibuprofen 600 MG 1 tablet with food o r milk as needed Orally Three times a day Active traMADol HCl 50 MG 1 tablet as needed Orally Once a day as needed Active Phendimetrazine Tartrate 35 MG 1 tablet 1 hour before a meal Orally Twice a day Active Topiramate 25 MG 1 tablet Orally Once a day Active Gemtesa 75 MG 1 tablet Orally Once a day for 30 day(s) Active Rybelsus 3 MG as directed Orally Active Vitamin D-3 125 MCG (5000 UT) as directed Orally Active Cholestyramine 4 GM 1 packet mixed with water or non-carbonated drink Orally Once a day for 30 day(s) Active Social History Tobacco Use: Social History Observation Description Date Details (start date - stop date) Never Smoker NA - NA Tobacco Use/Smoking Question Answer Notes Are you a nonsmoker Alcohol Screen (Audit-C) Question Answer Notes Did you have a drink containing alcohol in the p ast year? No Points 0 Interpretation Negative Vital Signs Blood pressure systolic 98 mm Hg 02/12/20 24 Blood pressure diastolic 64 mm Hg 024 Heart Rate 87 /min 02/12/2024 Temperature 98.6 degrees Fahrenheit 02/12/20 Weight 172 lbs 02/12/2024 Height 60 in 02/12/2024 BMI 33.59 kg/m2 02/12/2024 Encounters Encounter Location Date Provider Diagnosis [facility] [address] [id number] 02/12/2024 Elizabeth Handley Trochanteric bursiti s of right hip M70.61 and Sacroiliitis M46.1 Assessments Encounter Date Diagnosis (ICD Code) Assessment Notes Treatment Notes Treatment Clinical Notes Section Notes 02/12/2024 Trochanteric bursitis of right hip (ICD-10 - M70.61) On 09/02/22, 02/10/23, 09/09/23, and 12/22/23we did the right trochanteric bursa injection with 70% relief of the lateral hip pain. Her symptoms are slowly becoming recurrent and she would like to repeat the trochanteric bursa injection. She completed Water therapy and stretching daily. 02/12/2024 Sacroiliitis (ICD-10 - M46.1) On 10/28/23, we did the bilateral sacroiliac joint injection with >80% relief of symptoms. Her symptoms are becoming recurrent to the bilateral sacroiliac joints. She continues her home exercise program. The patient has clinical evidence of sacroiliitis with pain located between the upper level of the iliac crests and the gluteal fold at the sacroiliac joints. The patients pain was reproducible with provocative testing including the thigh thrust, Gaenslens test, sacroiliac joint compression and PADMINI testing. The patient has tenderness to palpation over the sacroiliac joints. The patient does not have any neurological changes on exam and has no evidence of radicular symptoms. The patients pain has consistently been 5/10 and has not responded to >6 weeks of conservative treatment including chiropractic, physical therapy or prescribed home exercise program. The patient has failed NSAID's >3 weeks and has modified their activity >6 weeks without relief of symptoms. The clinical findings do not indicate any other possible diagnosis. The previous therapeutic sacroiliac joint injection provided >80% relief of pain for atleast 3 months and improvement of ADL's. That also confirms the diagnosis of sacroiliitis. The patient is interested in repeating the procedure. All the pros and cons of the procedure were discussed with the patient. The risk of infection, bleeding, and pain were discussed with the patient. All questions were answered. The patient wants to proceed with the procedure. The procedure will be completed under fluoroscopy in the office with no sedation Plan Of Treatment Treatment Notes Assessment Notes Trochanteric bursitis of right hip On 09/02/22, 02/10/23, 09/09/23, and 12/22/23we did the right trochanteric bursa injection with 70% relief of the lateral hip pain. Her symptoms are slowly becoming recurrent and she would like to repeat the trochanteric bursa injection. She completed Water therapy and stretching daily. Sacroiliitis On 10/28/23, we did the bilateral sacroiliac joint injection with >80% relief of symptoms. Her symptoms are becoming recurrent to the bilateral sacroiliac joints. She continues her home exercise program. The patient has clinical evidence of sacroiliitis with pain located between the upper level of the iliac crests and the gluteal fold at the sacroiliac joints. The patients pain was reproducible with provocative testing including the thigh thrust, Gaenslens test, sacroiliac joint compression and PADMINI testing. The patient has tenderness to palpation over the sacroiliac joints. The patient does not have any neurological changes on exam and has no evidence of radicular symptoms. The patients pain has consistently been 5/10 and has not responded to >6 weeks of conservative treatment including chiropractic, physical therapy or prescribed home exercise program. The patient has failed NSAID's >3 weeks and has modified their activity >6 weeks without relief of symptoms. The clinical findings do not indicate any other possible diagnosis. The previous therapeutic sacroiliac joint injection provided >80% relief of pain for atleast 3 months and improvement of ADL's. That also confirms the diagnosis of sacroiliitis. The patient is interested in repeating the procedure. All the pros and cons of the procedure were discussed with the patient. The risk of infection, bleeding, and pain were discussed with the patient. All questions were answered. The patient wants to proceed with the procedure. The procedure will be completed under fluoroscopy in the office with no sedation Progress Notes * REZA ESPOSITODOB:1950 ([age] yo F)Acc No.[id number]:02/12/2024 Progress Notes Patient: TAJ DENNISLL Provider: Diana Nielsen NP :1950 A ge:73 Y S ex:Female Date:02/12/2024 Address:[address] [place] [address] Pcp:Zabrina Cox Subjective: * Chief Complaints: * L ower back pain * HPI: D epression Screening: PHQ-2 (2015 Edition) L ittle interest or pleasure in doing things? N ot at all, F eeling down, depressed, or hopeless? N ot at all, T otal Score 0 . F OLLOW UP: The patient presents in office for evaluation of right lower back pain. O n 06/27/22, we did the bilateral L3 L4 L5 medial branch block with no relief of symptoms. O n 06/28/22, we did the bilateral sacroiliac joint injection with 80% relief of pain following the procedure. O n 08/15/22 we did the right trochanteric bursa injection with >50% relief of the right hip pain. O n 02/10/23, we did the right trochanteric bursa injection with >50% relief of symptoms. O n 09/09/23, we did the right trochanteric bursa injection with >50% relief of symptoms. O n 10/28/23, we did the bilateral sacroiliac joint injection with >80% relief of the lower back pain. She is doing much better at this time. O n 12/22/23, we did the right trochanteric bursa injection with relief. T he lower back at the sacroiliac joints is bothering her the most at this time. S he completed physical therapy with benefit and continues a home exercise program. She completed water therapy. S he has no radicular symptoms. S he was recently on oral steroid due to congestion from her PCP. X ray of lumbar 03/27/22 she has a grade II anterolisthesis of L5 on S1. M RI of lumbar spine from 02/12/22 from [facility] grade I-II L5 S1 spondylothesis. Grade I-II anterolisthesis L4-on L5 with spina bifida occulta. T12-L1 syrinx. 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 C T of the Thoracic spine shows multilevel thoracic spondylosis. S he has a history of Right TKA. * ROS: G eneral/Constitutional: Overall health F air. C hange in appetite d enies.?Chills d enies. F atigue d enies. F ever d enies. W eight gain d enies. W eight loss d enies. E NT: Decreased hearing d enies. D ry mouth d enies. H earing problem d enies. E ndocrine: Diabetes d enies. T hyroid problems d enies. ? R espiratory: Breathing problems d enies. C hest pain d enies.? C ardiovascular: Chest pain d enies. F luid accumulation in the legs?denies. G astrointestinal: Abdominal pain d enies. C onstipation d enies. D iarrhea d enies. M usculoskeletal: Neck pain d enies. T horacic pain d enies. L ow back pain A DMITS. P eripheral Vascular: Painful extremities d enies. U lceration of feet d enies. N eurologic: Gait abnormality d enies. H eadache d enies. M willie loss d enies. S eizures d enies. S troke d enies. T ingling/Numbness?denies. T remor d enies. P sychiatric: Depressed mood d enies. D ifficulty sleeping d enies. S ubstance abuse d enies. * Medical History: * Surgical History: R ight TKA 2009Left mastectomy 1992Gall bladder 1990Left club foot 1982 * Hospitalization/Major Diagno stic Procedure: N o Hospitalization History. * Family History: N o Family History documented.. * Social History: T obacco Use: T obacco Use/Smoking A re you a n onsmoker. D rugs/Alcohol: A lcohol Screen (Audit-C) D id you have a drink containing alcohol in the past year? N o, P oints 0 , I nterpretation N egative. * Medications: T akingTopiramate 25 MG Tablet 1 tablet Orally Once a day Rybelsus 3 MG Tablet as directed Orally Gemtesa 75 MG Tablet 1 tablet Orally Once a day Cholestyramine 4 GM Packet 1 packet mixed with water or non-carbonated drink Orally Once a day Vitamin D-3 125 MCG (5000 UT) Tablet as directed Orally Ibuprofen 600 MG Tablet 1 tablet with food or milk as needed Orally Three times a day Phendimetrazine Tartrate 35 MG Tablet 1 tablet 1 hour before a meal Orally Twice a day traMADol HCl 50 MG Tablet 1 tablet as needed Orally Once a day , Notes to Pharmacist: as neededMelatonin 5 MG Tablet 1 tablet in the evening Orally Once a day ZyrTEC Allergy 10 MG Tablet 1 tablet Orally Once a day Pantoprazole Sodium 40 MG Tablet Delayed Release 1 tablet Orally Once a day Atorvastatin Calcium 10 MG Tablet 1 tablet Orally Once a day Dicyclomine HCl Gabapentin 400 MG Capsule TAKE ONE CAPSULE BY MOUTH EVERY MORNING AND 2 CAPSULES EVERY EVENING Wixela Inhub 500-50 MCG/ACT Aerosol Powder Breath Activated 1 puff Inhalation Twice a day Medication List reviewed and reconciled with the patientTaking Topiramate 25 MG Tablet 1 tablet Orally Once a day Taking Rybelsus 3 MG Tablet as directed Orally Taking Gemtesa 75 MG Tablet 1 tablet Orally Once a day Taking Cholestyramine 4 GM Packet 1 packet mixed with water or non-carbonated drink Orally Once a day Taking Vitamin D-3 125 MCG (5000 UT) Tablet as directed Orally Taking Ibuprofen 600 MG Tablet 1 tablet with food or milk as needed Orally Three times a day Taking Phendimetrazine Tartrate 35 MG Tablet 1 tablet 1 hour before a meal Orally Twice a day Taking traMADol HCl 50 MG Tablet 1 tablet as needed Orally Once a day , Notes to Pharmacist: as neededTaking Melatonin 5 MG Tablet 1 tablet in the evening Orally Once a day Taking ZyrTEC Allergy 10 MG Tablet 1 tablet Orally Once a day Taking Pantoprazole Sodium 40 MG Tablet Delayed Release 1 tablet Orally Once a day Taking Atorvastatin Calcium 10 MG Tablet 1 tablet Orally Once a day Taking Dicyclomine HCl Taking Gabapentin 400 MG Capsule TAKE ONE CAPSULE BY MOUTH EVERY MORNING AND 2 CAPSULES EVERY EVENING Taking Wixela Inhub 500-50 MCG/ACT Aerosol Powder Breath Activated 1 puff Inhalation Twice a day Medication List reviewed and reconciled with the patient * Allergies: A zithromycinCephalosporinsErythromycinHyaluronic AcidNaproxenPenicillinSulfa AntibioticsHyaluronate Sodiumno[Allergies Verified] Objective: * Vitals: B P:98/64mm Hg, HR:87/min, Temp:98.6F, Wt:172lbs, Ht: 60 in, BMI:33.59Index, Ht- cm: 152.4 cm, Wt-k.02 kg. * Examination: L umbar Spine/Lower back: INSPECTION: scoliosis present, pelvic asymmetery.. LUMBOSACRAL EXAMINATION F ADIR POSITIVE RIGHT, PADMINI TEST POSITIVE RIGHT, PADMINI TEST POSITIVE LEFT, pain with extension.. RANGE OF MOTION: pain with extension , Pain on extremes of motion. N eurological: CORTICAL FUNCTIONS: a lert and oriented X 3, speech fluent.? MOTOR STRENGTH: R IGHT UPPER EXTREMITY: deltoid abduction 5/5, biceps flexion 5/5, triceps extension 5/5, wrist extension 5/5, finger abduction 5/5. LEFT UPPER EXTREMITY:deltoid abduction 5/5, biceps flexion 5/5, triceps extension 5/5, wrist extension 5/5, finger abduction 5/5. RIGHT LOWER EXTREMITY: Hip Flexor 5/5, Quadriceps 5/5, Ankle DF 5/5, EHL 5/5. LEFT LOWER EXTREMITY: Hip Flexor 5/5, Quadriceps 5/5,Ankle DF 4/5, EHL 4/5.. SENSORY: R IGHT UPPER EXTREMITY; pinprick sensation intact. LEFT UPPER EXTREMITY; pinprick sensation intact. RIGHT LOWER EXTREMITY: pinprick sensation intact. LEFT LOWER EXTREMITY: pinprick sensationDECREASED LEFT LATERAL THIGH AND FOOT.. REFLEXES: R IGHT UPPER EXTREMITY; BICEPS: 2+, TRICEPS: 2+, BRACHIORADIALIS: 2+. LEFT UPPER EXTREMITY; BICEPS: 2+, TRICEPS: 2+, BRACHIORADIALIS: 2+. RIGHT LOWER EXTREMITY: KNEE 2+, ANKLE 2+. LEFT LOWER EXTREMITY: KNEE 2+, ANKLE 2+. NEGATIVE BABINSKI.. CEREBELLAR SIGNS: a bsent. COORDINATION: n o ataxia. GAIT AND STATION: w alking with cane, leaning to left side.? SPEECH: n ormal. H ip / Thigh: RANGE OF MOTION: pain with rotation. Positive fadir test.. Assessment: * Assessment: 1. S acroiliitis - M46.1 (Primary) 2 . T rochanteric bursitis of right hip - M70.61? Plan: * Treatment: 2. T rochanteric bursitis of right hip Notes: On 09/02/22, 02/10/23, 09/09/23, and 12/22/23we did the right trochanteric bursa injection with 70% relief of the lateral hip pain. Her symptoms are slowly becoming recurrent and she would like to repeat the trochanteric bursa injection. She completed Water therapy and stretching daily. 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
--- OUTSIDE RECORDS SUMMARY | 2024-11-19 11:29 | XMS_ITS | Patient Health Record ---
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 Name Role Phone Zabrina Cox Primary Care Provider Unavail able YARITZA TREVINO Unavailable [phone] AHSAN HOLM Unavailable Unavailable Elizabeth Handley Unavailable [phone] Allergies Allergen (clinical drug ingredient) Drug/Non Drug [...] (substance) Sulfa Antibiotics Unknown Drug Allergy Active Reason For Referral No Information Medications Medication SIG (Take, Route, Frequency, Duration) Notes Start Date End Date Status Gabapentin 400 MG TAKE ONE CAPSULE BY MOUTH EVERY MORNING AND 2 CAPSULES EVERY EVENING for 30 Active traMADol HCl 50 MG 1 tablet as needed Orally Once a day as needed Active Phendimetrazine Tartrate 35 MG 1 tablet 1 hour before a meal Orally Twice a day Active Ibuprofen 600 MG 1 tablet with food o r milk as needed Orally Three times a day Active Topiramate 25 MG 1 tablet Orally Once a day Active Atorvastatin Calcium 10 MG 1 tablet Oral ly Once a day for 30 day(s) Active Pantoprazole Sodium 40 MG 1 tablet Orall y Once a day for 30 day(s) Active ZyrTEC Allergy 10 MG 1 tablet Orally Onc e a day for 30 day(s) Active Melatonin 5 MG 1 tablet in the evening Orally Once a day for 30 day(s) Active Vitamin D-3 125 MCG (5000 UT) as directed Orally Active Cholestyramine 4 GM 1 packet mixed with water or non-carbonated drink Orally Once a day for 30 day(s) Active Gemtesa 75 MG 1 tablet Orally Once a day for 30 day(s) Active Wixela Inhub 500-50 MCG/ACT 1 puff Inhal ation Twice a day 02/12/2024 Active Rybelsus 3 MG as directed Orally Active Dicyclomine HCl Acti ve Social History Tobacco Use: Social History Observation Description Date Details (start date - stop date) Never Smoker NA - NA Tobacco Use/Smoking Question Answer Notes Are you a nonsmoker Alcohol Screen (Audit-C) Question Answer Notes Did you have a drink containing alcohol in the p ast year? No Points 0 Interpretation Negative Problems Problem Type SNOMED Code ICD Code Onset Dates Problem Status W/U Status Risk Notes Problem Localized, primary osteoarthritis of the shoulder region (822460290) Primary osteoarthritis, left shoulder (M19.012) Active confirmed Problem Adhesive capsulitis of left shoulder (112218847784575) Adhesive capsulitis of left shoulder (M75.02) Active confirmed Problem [id number] Trochanteric bursitis of right hip (M70.61) Active confirmed Problem 81026381 Sacroiliitis (M46.1) Active confirmed Problem 020773449094528 Primary osteoarthritis of right hip (M16.11) Active confirmed Problem Tear of left rotator cuff (38744804043587155 ) Tear of left rotator cuff, unspecified tear extent (M75.102) Active confirmed Problem 82762661 Meralgia paresthetica of left side (G57.12) Active confirmed Problem 335750849 Lumbar spondylosis (M47.816) Active confirmed Vital Signs Heart Rate 84 /min 05/27/2024 vas 6/10 Temperature 98.6 degrees Fahrenheit 05/27/2024 vas 6/10 Blood pressure diastolic 70 mm Hg 05/27/2024 vas 6/10 Height 60 in 05/27/2024 vas 6/10 Blood pressure systolic 106 mm Hg 05/27/2024 vas 6/10 Weight 172 lbs 05/27/2024 vas 6/10 BMI 33.59 kg/m2 05/27/2024 vas 6/10 Encounters Encounter Location Date Provider Diagnosis [facility] [address] [place] [address] 11/24/2023 YARITZAANDRY LOZANOD Sacroiliitis M46.1 a nd Trochanteric bursitis of right hip M70.61 [facility] [address] [address] 12/22/2023 YARITZA AHMAD Trochanteric bursiti s of right hip M70.61 [facility] [address] [address] 02/12/2024 Elizabeth zzzHolt Trochanteric bursiti s of right hip M70.61 and Sacroiliitis M46.1 [facility] [address] [address] 04/22/2024 YARITZAANDRY LOZANOD Sacroiliitis M46.1 [facility] [address] [address] 05/27/2024 Elizabeth zzzHolt Sacroiliitis M46.1 ; Primary osteoarthritis, left shoulder M19.012 ; Adhesive capsulitis of left shoulder M75.02 ; Tear of left rotator cuff, unspecified tear extent M75.102 and Trochanteric bursitis of right hip M70.61 Assessments Encounter Date Diagnosis (ICD Code) Assessment Notes Treatment Notes Treatment Clinical Notes Section Notes 11/24/2023 Trochanteric bursitis of right hip (ICD-10 - M70.61) On 09/02/22, 02/10/23, and 09/09/23, we did the right trochanteric bursa injection with 70% relief of the lateral hip pain. Her symptoms are slowly becoming recurrent and she would like to repeat the trochanteric bursa injection. She completed Water therapy and stretching daily. The patient presents with lateral pain of the RIGHT hip. On clinical exam the patient has tenderness over the right greater trochanteric bursa and gluteus medius. She also has pain when lying on the RIGHT side. Due to the patient's symptoms we will schedule the patient for a RIGHT trochanteric bursa injection., All pros and cons of the procedure were discussed with the patient and all questions were answered 11/24/2023 Sacroiliitis (ICD-10 - M46.1) On 10/28/23, we did the bilateral sacroiliac joint injection with >80% relief of symptoms. She is doing much better at this time and the lower back pain has stabilized. She continues her home exercise program. 12/22/2023 Trochanteric bursitis of right hip (ICD-10 - M70.61) On 09/02/22, 02/10/23, and 09/09/23, we did the right trochanteric bursa injection with 70% relief of the lateral hip pain. Her symptoms are slowly becoming recurrent and she would like to repeat the trochanteric bursa injection. She completed Water therapy and stretching daily. The patient had the right trochanteric bursa procedure in the office today. The patient tolerated the procedure well. Postprocedure instructions were discussed. If there are any medication or procedure related problems, the patient will contact us. At the time of discharge the patient was medically stable. 02/12/2024 Trochanteric bursitis of right hip (ICD-10 [...] fluoroscopy in the office with no sedation 04/22/2024 Sacroiliitis (ICD-10 - M46.1) On 10/28/23, we [...] atleast 3 months and improvement of ADL's. The patient had the bilateral sacroiliac joint injection procedure in the office today. The patient tolerated the procedure well. Postprocedure instructions were discussed. If there are any medication or procedure related problems, the patient will contact us. At the time of discharge the patient was medically stable. 05/27/2024 Primary osteoarthritis, left shoulder (ICD-10 - M19.012) The patient presents in office for left shoulder pain that started after a fall. The symptoms have progressively increased. She saw her PCP and no fracutre found. She just started physical therapy. On exam, her ROM is significantly limited with positive impingement. We discussed the treatment options and she would like to pursue the physical therapy first. If she does not respond, we will recommend left shoulder joint injection. If symptoms persist further, we will obtain MRI of left shoulder to assess for left rotator cuff tear. 05/27/2024 Sacroiliitis (ICD-10 - M46.1) On 10/28/23 and 04/22/24, we did the bilateral sacroiliac joint injection with >80% relief of symptoms. 05/27/2024 Adhesive capsulitis of left shoulder (ICD-10 - M75.02) 05/27/2024 Tear of left rotator cuff, unspecified tear extent (ICD-10 - M75.102) The patient had a fall and an exam she has a severely positive impingement sign. We discussed MRI of the left shoulder and she would like to opt for physical therapy at this time. If symptoms persist, we will obtain the MRI of the left shoulder. 05/27/2024 Trochanteric bursitis of right hip (ICD-10 - M70.61) The patient presents with lateral pain of the RIGHT hip. On clinical exam the patient has tenderness over the right greater trochanteric bursa and gluteus medius. She also has pain when lying on the RIGHT side. Due to the patient's symptoms we will schedule the patient for a RIGHT trochanteric bursa injection., All pros and cons of the procedure were discussed with the patient and all questions were answered Plan Of Treatment Pending Test Test Name Order Date X ray : Hip, right 01/15/2023 Insurance Providers Payer Name Payer Address Payer Phone Subscriber Number Group Number Insured Name Patient Relationship to Insured Coverage Start Date Coverage End Date [employer]ARE [address] [place] [phone] [id number] REZA ESPOSITO Self - patient is the insured Medical (General) History Medical History History ICD Code Osteoarthritis IBS Hx of Breast cancer GERD Left clubfoot Surgical History Surgery Date(Month/Year) Right TKA 2009 Left mastectomy 1992 Gall bladder 1990 Left club foot 1982
--- OUTSIDE RECORDS SUMMARY | 2024-11-19 11:29 | XMS_ITS ---
Author Organization [facility] Address [address] [address] Care Team Providers Care Potline Monitor Name Role Phone Zabrina Cox Primary Care Provider Unavail able YARITZA TREVINO Unavailable [phone] AHSAN HOLM Unavailable Unavailable Allergies Allergen (clinical drug ingredient) Drug/Non Drug [...] Unknown Drug Allergy Active REASON FOR VISIT Low back pain Medications Medication SIG (Take, Route, Frequency, Duration) Notes Start Date End Date Status traMADol HCl 50 MG 1 tablet as needed Orally Once a day as needed Active Melatonin 5 MG 1 tablet in the evening Orally Once a day for 30 day(s) Active Phendimetrazine Tartrate 35 MG 1 tablet 1 hour before a meal Orally Twice a day Active ZyrTEC Allergy 10 MG 1 tablet Orally Onc e a day for 30 day(s) Active Pantoprazole Sodium 40 MG 1 tablet Orall y Once a day for 30 day(s) Active Ibuprofen 600 MG 1 tablet with food o r milk as needed Orally Three times a day Active Cholestyramine 4 GM 1 packet mixed with water or non-carbonated drink Orally Once a day for 30 day(s) Active Vitamin D-3 125 MCG (5000 UT) as directed Orally Active Gemtesa 75 MG 1 tablet Orally Once a day for 30 day(s) Active Rybelsus 3 MG as directed Orally Active Wixela Inhub 500-50 MCG/ACT 1 puff Inhal ation Twice a day 02/12/2024 Active Gabapentin 400 MG TAKE ONE CAPSULE BY MOUTH EVERY MORNING AND 2 CAPSULES EVERY EVENING for 30 Active Topiramate 25 MG 1 tablet Orally Once a day Active Atorvastatin Calcium 10 MG 1 tablet Oral ly Once a day for 30 day(s) Active Dicyclomine HCl Acti ve Encounters Encounter Location Date Provider Diagnosis [facility] [address] [address] 04/22/2024 YARITZA TREVINO Sacroiliitis M46.1 Assessments Encounter Date Diagnosis (ICD Code) Assessment Notes Treatment Notes Treatment Clinical Notes Section Notes 04/22/2024 Sacroiliitis (ICD-10 - M46.1) On 10/28/23, [...] of discharge the patient was medically stable. Plan Of Treatment Treatment Notes Assessment Notes Sacroiliitis On 10/28/23, we did the bilateral [...] of discharge the patient was medically stable. Procedure Notes * Category Sub-Category Detail Notes Sacroiliac Joint Injection * Title of Procedure: SACROILIAC JOINT INJECTION, BILATERAL Diagnosis: Sacroiliac Joint Dys function Consent/Allergies: Patient is informed and accepts the risks, benefits and possible complications. The written consent is obtained. Patient denies allergies to the medications used in the block Anesthesia and Sedation: Local anesthesi a with 1% Lidocaine Sacroiliac Joint Injections for Chronic Sacral Pain: The patient is placed in a prone positio n on the fluoroscopy table. Under fluoroscopy in an ipsilateral oblique view, the sacroiliac joint was identified and marked. The skin of the lower lumbar and upper sacral regions was prepped with Chloraprep in a usual sterile fashion. The local anesthesia was carried out with 2 ml 1% Lidocaine. A 22 G spinal needle was inserted into the sacroiliac joint. Arthrogram was confirmed by injecting 0.5 ml Omnipaque 240 and an arthrogram was confirmed. After a negative aspiration of blood, 2.5 ml solution containing 30 mg Triamcinolone mixed with 2% Lidocaine, was injected into the joints.A similar technique and the same medications were injected on both sacroiliac joint. THE POST PROCEDURE PAIN WAS 80% BETTER., Response to the Procedure: The patient t olerated the procedure well without complications Floroscopy Time 2:22 Progress Notes * VAIBHAVREZADOB:1950 ([age] yo F)Acc No.[id number]:04/22/2024 Progress Note Patient: REZA DENNIS Provider: Tex TREVINO M.D. :1950 A ge:73 Y S ex:Female Date:04/22/2024 Address:[address] [place] [address] Pcp:Zabrina Cox Subjective: * Chief Complaints: * L ow back pain * Medical History: * Surgical History: R ight TKA 2009Left mastectomy 1992Gall bladder 1990Left club foot 1982 * Hospitalization/Major Diagno stic Procedure: N o Hospitalization History. * Family History: N o Family History documented.. * Medications: T akingTopiramate 25 MG Tablet [...] A zithromycinCephalosporinsErythromycinHyaluronic AcidNaproxenPenicillinSulfa AntibioticsHyaluronate Sodiumno[Allergies Verified] Objective: Assessment: * Assessment: 1. S acroiliitis - M46.1 (Primary) Plan: * Treatment: * Procedures: S acroiliac Joint Injection *: Title of Procedure: S ACROILIAC JOINT INJECTION, BILATERAL.?Diagnosis: S acroiliac Joint Dysfunction. C onsent/Allergies: P atient is informed and accepts the risks, benefits and possible complications. The written consent is obtained. Patient denies allergies to the medications used in the block. A nesthesia and Sedation: L ocal anesthesia with 1% Lidocaine. S acroiliac Joint Injections for Chronic Sacral Pain: T he patient is placed in a prone position on the fluoroscopy table. Under fluoroscopy in an ipsilateral oblique view, the sacroiliac joint was identified and marked. The skin of the lower lumbar and upper sacral regions was prepped with Chloraprep in a usual sterile fashion. The local anesthesia was carried out with 2 ml 1% Lidocaine. A 22 G spinal needle was inserted into the sacroiliac joint. Arthrogram was confirmed by injecting 0.5 ml Omnipaque 240 and an arthrogram was confirmed. After a negative aspiration of blood, 2.5 ml solution containing 30 mg Triamcinolone mixed with 2% Lidocaine, was injected into the joints. A similar technique and the same medications were injected on both sacroiliac joint. THE POST PROCEDURE PAIN WAS 80% BETTER., . R esponse to the Procedure: T he patient tolerated the procedure well without complications. F loroscopy Time 2 :22. * Procedure Codes: 2 7096 INJECT SACROILIAC JOINT, Modifiers: 50 Q9966 LOCM 200-299MG/ML IODINE,1ML 1 [id number] UNCLASSIFIED [id number] INJ TRIAMCINOLONE ACETONIDE 10 MG 2 [id number] STERILE [id number] RADIATION EXPOSURE INDICES DOC * * Sign off status: Completed true * Provider: Tex TREVINO M.D. Date: 0 04/22/2024 Generated for Luis Enrique buck/Harleen/Kieshaitting on: 0 11/19/2024 11:28 AM ARCHITECTURE MANAGER
--- OUTSIDE RECORDS SUMMARY | 2024-11-19 11:29 | XMS_ITS ---
Author Organization [facility] Address [address] [place] [address] Care Team Providers Care Full Charge Bookkeeper Name Role Phone Zabrina Cox Primary Care Provider Unavail able YARITZA TREVINO Unavailable [phone] AHSAN HOLM Unavailable Unavailable Elizabeth Handley Unavailable [phone] Allergies Allergen (clinical drug ingredient) Drug/Non Drug [...] Duration) Notes Start Date End Date Status Dicyclomine HCl Acti ve Atorvastatin Calcium 10 MG 1 tablet Oral [...] Once a day for 30 day(s) Active traMADol HCl 50 MG 1 tablet as needed Orally Once a day as needed Active Phendimetrazine Tartrate 35 MG 1 tablet 1 hour before a meal Orally Twice a day Active Ibuprofen 600 MG 1 tablet with food o r milk as needed Orally Three times a day Active Gabapentin 400 MG TAKE ONE CAPSULE BY MOUTH EVERY MORNING AND 2 CAPSULES EVERY EVENING for 30 Active Gemtesa 75 MG 1 tablet Orally Once a day for 30 day(s) Active Wixela Inhub 500-50 MCG/ACT 1 puff Inhal ation Twice a day 02/12/2024 Active Rybelsus 3 MG as directed Orally Active Topiramate 25 MG 1 tablet Orally Once a day Active Problems Problem Type SNOMED Code ICD Code Onset Dates Problem Status W/U Status Risk Notes Problem Localized, primary osteoarthritis of the shoulder region (460388186) Primary osteoarthritis, left shoulder (M19.012) Active confirmed Problem Adhesive capsulitis of left shoulder (769599963165409) Adhesive capsulitis of left shoulder (M75.02) Active confirmed Problem Tear of left rotator cuff (57658286314822829 ) Tear of left rotator cuff, unspecified tear extent (M75.102) Active confirmed Vital Signs Blood pressure systolic 106 mm Hg 05/27/20 Blood pressure diastolic 70 mm Hg 024 Heart Rate 84 /min 05/27/2024 Temperature 98.6 degrees Fahrenheit 05/27/20 Weight 172 lbs 05/27/2024 Height 60 in 05/27/2024 BMI 33.59 kg/m2 05/27/2024 vas 03/22 Encounters Encounter Location Date Provider Diagnosis [facility] [address] [address] 05/27/2024 Elizabeth Handley Sacroiliitis M46.1 ; Primary osteoarthritis, left shoulder M19.012 ; Adhesive capsulitis of left shoulder M75.02 ; Tear of left rotator cuff, unspecified tear extent M75.102 and Trochanteric bursitis of right hip M70.61 Assessments Encounter Date Diagnosis (ICD Code) Assessment Notes Treatment Notes Treatment Clinical Notes Section Notes 05/27/2024 Sacroiliitis (ICD-10 - M46.1) On 10/28/23 and 04/22/24, we did the bilateral sacroiliac joint injection with >80% relief of symptoms. 05/27/2024 Primary osteoarthritis, left shoulder (ICD-10 - [...] assess for left rotator cuff tear. 05/27/2024 Adhesive capsulitis of left shoulder (ICD-10 [...] all questions were answered Plan Of Treatment Treatment Notes Assessment Notes Sacroiliitis On 10/28/23 and , we did the bilateral sacroiliac joint injection with >80% relief of symptoms. Primary osteoarthritis, left shoulder The patient presents in office for left [...] to assess for left rotator cuff tear. Tear of left rotator cuff, u nspecified tear extent The patient had a fall and an exam she has a severely positive impingement sign. We discussed MRI of the left shoulder and she would like to opt for physical therapy at this time. If symptoms persist, we will obtain the MRI of the left shoulder. Trochanteric bursitis of right hip The benny atpete presents with lateral pain of the RIGHT [...] the patient and all questions were answered Progress Notes * REZA ESPOSITODOB:1950 ([age] yo F)Acc No.[id number]:05/27/2024 Progress Notes Patient: Rafaela AVILAMillieTAJLL Provider: Diana Nielsen NP :1950 A ge:73 Y S ex:Female Date:05/27/2024 Address:[address] [place] [address] Pcp:Zabrina Cox Subjective: * Chief Complaints: * L ow back pain * HPI: D epression Screening: PHQ-2 (2015 Edition) L ittle interest or pleasure in doing things? N ot at all, F eeling down, depressed, or hopeless? N ot at all, T otal Score 0 . F OLLOW UP: The patient presents in office for evaluation of right lower back pain. On 06/27/22, we did the bilateral L3 L4 L5 medial branch block with no relief of symptoms. On 06/28/22, we did the bilateral sacroiliac joint injection with 80% relief of pain following the procedure. On 08/15/22 we did the right trochanteric bursa injection with >50% relief of the right hip pain. On 02/10/23, we did the right trochanteric bursa injection with >50% relief of symptoms. On 09/09/23, we did the right trochanteric bursa injection with >50% relief of symptoms. On 10/28/23, we did the bilateral sacroiliac joint injection with >80% relief of the lower back pain. She is doing much better at this time. On 12/22/23, we did the right trochanteric bursa injection with relief. On 04/22/24, we did the bilateral sacroiliac joint injection with >80% relief. She was able to go on vacation. She had to do a lot of walking and was able to do this. Her right lateral hip is starting to bother her again. About 2 months ago, she fell and landed on the left shoulder. Since then, she has had continued pain to the shoulder. She saw her PCP and is in physical therapy. XRAY negative for fracture. She is also in therapy for the lower back. She completed physical therapy with benefit and continues a home exercise program. She completed water therapy. She has no radicular symptoms. Xray of lumbar 03/27/22 she has a grade II anterolisthesis of L5 on S1. MRI of lumbar spine from 02/12/22 from [facility] grade I-II L5 S1 spondylothesis. Grade I-II anterolisthesis L4-on L5 with spina bifida occulta. T12-L1 syrinx. 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 CT of the Thoracic spine shows multilevel thoracic spondylosis. She has a history of Right TKA. * [...] tablet Orally Once a day Dicyclomine HCl Wixela Inhub 500-50 MCG/ACT Aerosol Powder Breath Activated 1 puff Inhalation Twice a day Gabapentin 400 MG Capsule TAKE ONE CAPSULE BY MOUTH EVERY MORNING AND 2 CAPSULES EVERY EVENING Taking Topiramate 25 MG Tablet 1 tablet Orally [...] Once a day Taking Dicyclomine HCl Taking Wixela Inhub 500-50 MCG/ACT Aerosol Powder Breath Activated 1 puff Inhalation Twice a day Taking Gabapentin 400 MG Capsule TAKE ONE CAPSULE BY MOUTH EVERY MORNING AND 2 CAPSULES EVERY EVENING * Allergies: A zithromycinCephalosporinsErythromycinHyaluronic AcidNaproxenPenicillinSulfa AntibioticsHyaluronate Sodiumno[Allergies Verified] Objective: * Vitals: B P:106/70mm Hg, HR:84/min, Temp:98.6F, Wt:172lbs, Ht: 60 in, BMI:33.59Index, Ht- cm: 152.4 cm, Wt-k.02 kg. vas 6/10. * Examination: L umbar Spine/Lower back: INSPECTION: [...] MOTION: pain with rotation. Positive fadir test.. S houlder / Upper arm: RANGE OF MOTION: l eft ABD 45 IR 45 ER 80. IMPINGEMENT SIGN: p ositive, severe left. ? Assessment: * Assessment: 1. S acroiliitis - M46.1 (Primary) 2 . P rimary osteoarthritis, left shoulder - M19.012 3 . A dhesive capsulitis of left shoulder - M75.02 4 . T ear of left rotator cuff, unspecified tear extent - M75.102 5 . T rochanteric bursitis of right hip - M70.61 Plan: * Treatment: 2. P rimary osteoarthritis, left shoulder Notes: The patient presents in office for left [...] to assess for left rotator cuff tear. 3. T ear of left rotator cuff, unspecified tear extent Notes: The patient had a fall and an exam she has a severely positive impingement sign. We discussed MRI of the left shoulder and she would like to opt for physical therapy at this time. If symptoms persist, we will obtain the MRI of the left shoulder. 4. T rochanteric bursitis of right hip Notes: The patient presents with lateral pain of [...] the patient and all questions were answered * Procedure Codes: * * Sign off status: Completed true * Provider: Diana Nielsen NP Date: 0 05/27/2024 Generated for Luis Enrique buck/Harleen/Sven on: 0 11/19/2024 11:29 AM DERRICK ENGINEER
--- OUTSIDE RECORDS SUMMARY | 2024-11-19 11:29 | XMS_ITS | Continuity of Care Document ---
Author Organization [facility] Address [id number] [place] [address] [place] [address] Phone Care Team Providers Care Pack Mule Worker Name Role Phone Dagoberto Bradford DO Unavailable Unavailable Advance Directives Directive Yes / No Effective Date File Name No Information Encounters Encounter Description Practice Location Reason(s) For Visit Diagnoses Date Provider Providers Copied on Encounter [facility], [address], [place], [place], [id number], [place] tel:[phone] [facility] No Information [facility]. [address] [facility], [place], [address], [place]. tel: [phone] Family History Family Member Type Diagnosis Age At Onset No Information Payers Payer name Insurance type Covered republican ID Authoriza tion(s) No Information Social History Type Description Quantity Date Captured Comments Sex Female Smoking Status No Information Chief Complaint And Reason For Visit No Information Reason For Referral Reason For Referral No Information History Of Present Illness Encounter Date Complaint History Of Prese nt Illness No Information Functional Status Date Functional Assessmen t No Information Instructions Date Instruction Additional Infor mation No Information Assessments Type Assessment Date No Information Patient Care Teams Name Effective Dates (start - stop) Status Members No Information
--- OUTSIDE RECORDS SUMMARY | 2024-11-19 11:29 | XMS_ITS | Clinical Summary ---
Author Organization [facility] Address [address] [place] [address] Phone Care Team Providers Care Medical Affairs Leader Name Role Phone Zabrina Cox MD Primary Care Provider Allergies Active Allergy Reactions Criticality Noted Date Comments Azithromycin Diarrhea,Nausea and Vomiting Low 02/22/2011 Cephalosporins Diarrhea Low 02/22/2011 Erythromycin Diarrhea Low 03/14/2022 Hyaluronic Acid Rash Low 03/14/2022 Macrolide Antibiotics Diarrhea Low 02/22/2011 Naproxen Rash Low 03/14/2022 Penicillins Rash Low 02/22/2011 Sodium Hyaluronate Rash Low 03/14/2022 Sulfa (Sulfonamide Antibiotics) Rash Low 02/22/2011 Medications cholestyramine, with sugar, (QUESTRAN) 4 gram Powder in PacketIndicatio ns:Breast pain 01/13/2014 Acti ve dicyclomine (BENTYL) 10 mg capsule Take 10 mg by mouth 4 times daily. Active atorvastatin (LIPITOR) 10 mg tablet Take 10 mg by mouth daily. Active pantoprazole (PROTONIX) 40 mg Tablet, Delayed Release (E.C.) Take 40 mg by mouth daily. Active cetirizine (ZyrTEC) 10 mg tablet Take 10 mg by mouth daily. Active melatonin 5 mg Tablet Take 1 Tablet by mouth nightly as needed. Active acetaminophen (TYLENOL) 500 mg tablet Take 500 mg by mouth every 6 hours as needed. Active cholecalciferol (VITAMIN D3) 400 unit Tablet Take by mouth daily. Active solifenacin (VESICARE) 5 mg Tablet Take 5 mg by mouth daily. 05/24/2022 Active Active Problems Patient Care Coordination No te Formatting of this note migh t be different from the original. Primary Care: Romeo Flannery MD Referring Provider: No referring provider defined for this encounter. Other: Problem Noted Date Diagnosed Date Breast pain 02/22/2011 S/P left mastectomy 02/22/2011 IBS (irritable bowel syndrome) Arthritis Osteoporosis Panic disorder Malignant neoplasm of breast (female), unspecifi ed site Overview (02/22/2011): left breast Family History Medical History Relation Name Comments No Known Problems Father Breast Cancer Maternal Aunt Great Aunt (x3) Breast C ancer Cancer Maternal Aunt Great Aunt (x3) Breast Ca ncer No Known Problems Maternal Grandfather Cancer Maternal Grandmother Pancrea tic Pancreatic Cancer Maternal Grandmother Other Mother Smoker Heart Disease Paternal Grandfather No Known Problems Paternal Grandmother Other Sister Smoker Relation Name Status Comments Father Maternal Aunt Great Aunt Alive Maternal Grandfather Maternal Grandmother Mother Paternal Grandfather Paternal Grandmother Sister Social History Tobacco Use Types Packs/Day Years Used Date Smoking Tobacco: Former Cigarettes Q uit: 1984 Smokeless Tobacco: Never Alcohol Use Standard Drinks/Week Comments Yes 0 (1 standard drink = 0.6 oz pur e alcohol) Rarely drinks. 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 ASSISTANT Gender Identity Not on file Sexual Orientation Not on file Occupation Industry Job Start Date Job End Date Not on file Not on file Not on file Not on file Last Filed Vital Signs Vital Sign Reading Time Taken Comments Blood Pressure 125/77 05/28/2022 12:59 PM CDT Pulse 88 05/28/2022 12:59 PM CDT Temperature 36.6 C (97.9 F) 05/28/2022 12:59 PM CDT Respiratory Rate - - Oxygen Saturation - - Inhaled Oxygen Concentration - - Weight 88.1 kg (194 lb 4.8 oz) 05/28/2022 12:59 PM CDT Height 152.4 cm (5') 05/02/2022 3:01 PM CDT Body Mass Index 37.95 05/02/2022 3:01 PM CDT Plan of Treatment Health Maintenance Due Date Last Done Comments DTAP/TDAP/TD VACCINES (1 - Tdap) 1969 COLORECTAL SCREENING 1995 Colorectal Cancer Screening 1995 FIT-DNA Q 3 years 1995 FIT/FOBT Q 1 year 1995 Flex Sig/CT Colonography Q 5 years 1995 ZOSTER VACCINE (1 of 2) 2000 OSTEOPOROSIS SCREENING 2015 BREAST CANCER SCREENING 10/03/2016 10/03/20 15, 08/24/2014, 07/16/2013, Additional history exists PNEUMOCOCCAL VACCINE 65+ YEA RS (2 of 2 - PCV) 03/13/2019 03/13/2018 INFLUENZA VACCINE (#1) 2024 0, 07/30/2019, 08/19/2018 RSV VACCINE (60+ or ) (1 - 1-dose 75+ series) 2025 Procedures Procedure Name Priority Date/Time Associated Diagnosis Comments MAMMO SCRN UNI RIGHT W OR WO CAD Routine 10/03/2015 1:25 PM INSURANCE SALES ASSISTANT Visit for screening mammogram from Last 3 Months or Most Recently Relevant to Health Maintenance Results * MAMMO DIGITAL SCREEN UNI RIGHT (10/03/2015 1:25 PM INSURANCE SALES ASSISTANT) Anatomical Region Laterality Modality Breast Right Mammography 10/03/2015 1:14 PM INSURANCE SALES ASSISTANT Narrative 10/05/2015 9:04 AM INSURANCE SALES ASSISTANT RIGHT UNILATERAL FULL FIELD DIGITAL SCREENING MAMMOGRAM WITH CAD. Oct 03, 2015 01:14:58 PM INDICATION: Personal history of left breast cancer treated with mastectomy. Routine yearly screening mammogram of the right breast. TECHNIQUE: Standard views were obtained of the right breast. CAD was utilized. COMPARISON: Comparison is made to multiple prior studies dating back to 03/28/2010 BREAST COMPOSITION: Scattered fibroglandular densities. FINDINGS: No new dominant masses, suspicious calcifications, parenchymal asymmetry or areas of architectural distortion are identified in the right breast. Since the prior study, there has been no significant interval change. OVERALL ASSESSMENT: BI-RADS Category 1: Negative. RECOMMENDATION: Annual mammography of the right breast is recommended. Procedure Note Nelson Simon MD - 10/05/2015 RIGHT UNILATERAL FULL FIELD DIGITAL SCREENING MAMMOGRAM WITH CAD. Oct 03, 2015 01:14:58 PM INDICATION: Personal history of left breast cancer treated with mastectomy. Routine yearly screening mammogram of the right breast. TECHNIQUE: Standard views were obtained of the right breast. CAD was utilized. COMPARISON: Comparison is made to multiple prior studies dating back to 03/28/2010 BREAST COMPOSITION: Scattered fibroglandular densities. FINDINGS: No new dominant masses, suspicious calcifications, parenchymal asymmetry or areas of architectural distortion are identified in the right breast. Since the prior study, there has been no significant interval change. OVERALL ASSESSMENT: BI-RADS Category 1: Negative. RECOMMENDATION: Annual mammography of the right breast is recommended. Komal Roblero MD MAMMO ORDERABLES Final R esult from Last 3 Months or Most Recently Relevant to Health Maintenance Insurance Care Teams Medical Affairs Leader Relationship Specialty Start Date End Date Zabrina Cox MD PCP - General Family Practice 02/21/22
[2024-11-19 12:09] LABS: INR 0.9
[2024-11-19 12:10] LABS: Partial Thromboplastin Time 28.1 Seconds (22.3-36.8)
[2024-11-19 12:13] LABS: Troponin I < 0.012 ng/mL (0.000-0.034)
--- NOTE | 2024-11-19 17:10 | ADMGEN ---
This patient, Jo Bales, was admitted to [facility] Surg Room 310-01. Patient/family oriented to hospital policies and general routines including ID bracelet, bed and alarms, visiting hours, pain management, procedures, bathroom and other care routines, personal items, smoking policy, room service/diet, and visiting hours. Information on how to activate the Rapid Response Team has been discussed. Patient/Family are encouraged to report perceived risks to care and to ask questions if they do not understand what they are told or what they should do.
--- NOTE | 2024-11-19 17:38 | PM.IMHP ---
H&P: HPI History of Present Illness Date/Time: 11/19/24 17:38 Chief Complaint: ground level fall right lower extremity pain Narrative: This is a 74-year-old female we do this right with a significant past medical history of hyperlipidemia, GERD, breast cancer status post mastectomy, GERD, irritable bowel syndrome, former smoker who presented to the hospital after sustaining a ground level fall which occurred last night. patient states that she got up and was walking towards the bathroom at home and noticed that her left foot felt like it was asleep and she ended up falling into her book case hitting her chin and sustained a scratch/abrasion to her right eyebrow. When she landed she felt like her right leg was twisted underneath her. When she tried to get up, she was unable to ambulate. She normally walks with a cane when out of the home and a walker at home however she didn't have either with her today. She reports right knee, right ankle, and right foot pain. She denies any other complaints. Workup in the hospital included a head CT which was negative for any acute fracture or intracranial process. Right knee x-ray showed total right knee arthroplasty in near anatomic alignment, small right knee joint effusion with loose bodies. Chest x-ray was negative. Right ankle x-ray showed mild ankle joint osteoarthritis, no acute fracture. Left foot x-ray showed moderate hallux valgus, mild polyarticular osteoarthritis, chronic deformities of some of the toes. Right knee x-ray showed total right knee arthroplasty in near anatomic alignment small knee joint effusion was small loose bodies. Initial labs showed a normal white blood cell count of 6.4, INR 0.9, AST 70, ALT 39, alkaline phosphate 128, troponin was negative, lipase normal at 89. EKG showed normal sinus rhythm with left axis deviation with a rate of 76, QTC 416. Patient was given Protonix and [place] while in the ED. Review of Systems Review of Systems: All systems reviewed & are unremarkable except as noted in HPI and below [facility] Past Medical History Medical History History of COVID-2018 HX: breast cancer cancer free x 30 years Club foot Pain of right thumb Gastric ulcer History of measles History of mumps History of chicken pox Dysphagia Hyperlipidemia Other symptoms involving urinary system History of left breast cancer GERD (gastroesophageal reflux disease) IBS (irritable bowel syndrome) Surgical History Surgical History History of cataract surgery bilateral History of endoscopy History of tonsillectomy H/O arthroscopy of right knee S/P foot surgery, left H/O section History of cholecystectomy History of mastectomy H/O total knee replacement Family History Family History Father , age 86 Cerebrovascular accident Family history of osteoarthritis Arthritis Alzheimer disease Mother , age 84 Family history of thyroid disease Family history of aortic aneurysm Family history of emphysema Sibling IBS (irritable bowel syndrome) Other Family history of malignant neoplasm of breast in first degree relative Social History Social History Smoking packs per day: 0 Smoking cigarettes per day: 0.0 Years smoked: 10 Smoking pack-years: 0.00 Smoking status: Former smoker Second hand tobacco smoke exposure: No Alcohol intake: never Substance use: never Substance use type: does not use Do You Feel Safe in your Home?: Yes Lack of Transportation: No Lack of Food: Never True Current Housing: I Have Housing Concerned About Future Housing: No Difficulty Paying Gas/Electric Bills: No Difficulty Paying for Meds: No Currently Unemployed: No Education: Master's Degree or Higher Difficulty w/ Childcare or Family Care: No Living arrangements: with family Occupation/Education: retired Gender identity (if verbalized by the patient): Female Spiritual care concerns: No Meds Home Medications and Allergies Home Medications ?Medication ?Instructions ?Recorded ?Confirmed ?Type melatonin 1 mg tablet 5 mg PO HS PRN Insomnia 10/16/22 11/19/24 History gabapentin 400 mg capsule 400 mg PO TID 04/08/23 11/19/24 History vibegron 75 mg tablet (Gemtesa) 75 mg PO HS 04/08/23 11/19/24 History cholestyramine (with sugar) 4 gram 4 g PO DAILY #90 ea 12/01/23 11/19/24 Rx powder for susp in a packet cetirizine 10 mg capsule (Zyrtec) 10 mg PO DAILY PRN allergy symptoms 01/13/24 11/19/24 History phendimetrazine tartrate 105 mg 105 mg PO DAILY 01/13/24 11/19/24 History capsule,extended release pantoprazole 40 mg tablet,delayed See Rx Instructions .Route 03/24/24 11/19/24 Rx release .COMPLEX #30 tabs ibuprofen 600 mg tablet 600 mg PO TID #270 tabs 07/08/24 11/19/24 Rx cholecalciferol (vitamin D3) 50 50 mcg PO DAILY 08/18/24 11/19/24 History mcg (2,000 unit) capsule atorvastatin 10 mg tablet See Rx Instructions .Route 10/27/24 11/19/24 Rx .COMPLEX #90 tabs bupropion HCl 100 mg tablet 100 mg PO BID 11/19/24 11/19/24 History dicyclomine 10 mg capsule 10 mg PO BID 11/19/24 11/19/24 History hydrocodone 5 mg-acetaminophen 325 1 tablet PO Q8H PRN pain #14 tabs 11/19/24 Rx mg tablet Allergies Allergy/AdvReac Type Severity Reaction Status Date / Time azithromycin Allergy Severe Diarrhea Verified 11/19/24 17:15 Cephalosporins Allergy Severe Diarrhea Verified 11/19/24 17:15 erythromycin base Allergy Severe Diarrhea Verified 11/19/24 17:15 hyaluronic acid Allergy Intermediate RASH Verified 11/19/24 17:15 naproxen Allergy Intermediate Rash Verified 11/19/24 17:15 Penicillins Allergy Intermediate Rash Verified 11/19/24 17:15 Sulfa (Sulfonamide Allergy Intermediate Rash Verified 11/19/24 17:15 Antibiotics) hyaluronate sodium, AdvReac Intermediate Rash Verified 11/19/24 17:15 stabilized Vital Signs Vital Signs - 24 hr 11/19/24 09:23 11/19/24 09:31 11/19/24 10:01 Temperature 98 F Pulse Rate 83 71 90 Respiratory Rate 18 18 16 Blood Pressure 143/85 H 128/74 136/75 Pulse Oximetry 98 95 100 Oxygen Delivery Room Air 11/19/24 10:16 11/19/24 10:31 11/19/24 11:01 Temperature Pulse Rate 95 93 90 Respiratory Rate 18 18 18 Blood Pressure 134/70 136/74 132/75 Pulse Oximetry 96 98 98 Oxygen Delivery 11/19/24 12:37 11/19/24 15:35 Temperature Pulse Rate 81 80 Respiratory Rate 18 18 Blood Pressure 127/80 120/68 Pulse Oximetry 93 99 Oxygen Delivery Exam Narrative: General: In no acute distress, well nourished Head: atraumatic, no encephalopathy Eyes: PERRLA, sclera clear ENT: moist mucous membranes, nasal passages clear Neck: supple, no JVD, no adenopathy, trachea midline Cardiac: Normal S1 and S2. RRR, No murmur, gallops or friction rubs, peripheral pulses intact. Respiratory: Lungs clear to auscultation, no adventitious lung sounds, currently on room air Gastrointestinal: soft, non-distended, non-tender, normoactive bowel sounds. : voiding without difficulty. Extremities: Cleb foot on left, right knee decreased ROM Skin:bruise under chin, scratch/abrasion mohit on left eyebrow Neuro: Alert and oriented x4, cranial nerves intact, no neuro deficits. Psych: normal mood, normal affect, interactive H&P: Results Labs Labs: Short CBC 11/19/24 Range/Units 10:54 WBC 6.4 (4.5-10.0) K/mm3 Hgb 12.3 (12.0-15.0) g/dL Hct 39.1 (37.0-47.0) % Plt Count 227 (150-375) k/mm3 BMP 11/19/24 10:54 Sodium 139 Potassium 4.3 Chloride 105 Carbon Dioxide 27 BUN 20 H Creatinine 0.51 L Glucose 106 Calcium 9.0 Cardiac Enzymes 11/19/24 Range/Units 10:54 Troponin I < 0.012 (0.000-0.034) ng/mL Liver Function 11/19/24 Range/Units 10:54 Total Bilirubin 1.1 (0.2-1.3) mg/dL AST 70 H (14-36) U/L ALT 39 H (6-35) U/L Alkaline Phosphatase 128 H (38-126) U/L Albumin 3.8 (3.5-5.1) g/dL Imaging CT scan - head: Radiologist's impression: EXAMINATION: CT brain wo con DATE: 11/19/2024 09:45 INDICATION: Head injury TECHNIQUE: Computed tomography (CT) of the head was performed without intravenous contrast. Sagittal and coronal reconstructions were performed. The mA was adjusted according to patient size. Iterative reconstruction technique was employed. The dose-length product was 605.33 mGy-cm. COMPARISON: None FINDINGS: No fracture. No acute intracranial hemorrhage, acute infarction or abnormal extra axial fluid collection. Ventricles are normal and symmetric. No mass/mass effect. Changes of bilateral intraocular lens replacement. The orbits, paranasal sinuses and mastoid air cells are normal. Developmental variant unfused posterior ring of C1. IMPRESSION: 1. No fracture or acute intracranial process. Reviewed, dictated and finalized at location B. BRIQUETTE MACHINE OPERATOR right knee x-ray: Radiologist's impression: EXAMINATION: XR knee RT 3V DATE: 11/19/2024 10:03 INDICATION: Right knee injury and pain. TECHNIQUE: 3 views of right knee were obtained. COMPARISON: Right knee radiographs 01/05/2012 FINDINGS: There is a total right knee arthroplasty with patellar resurfacing in near-anatomic alignment. There are osteophytes of the patella. No fracture. No periprosthetic lucency to suggest loosening or infection. There is a small knee joint effusion with loose bodies. IMPRESSION: 1. Total right knee arthroplasty in near-anatomic alignment. 2. Small right knee joint effusion with loose bodies. Reviewed, dictated and finalized at location A. BRIQUETTE MACHINE OPERATOR Chest x-ray: Radiologist's impression: EXAMINATION: XR chest 2V DATE: 11/19/2024 12:38 INDICATION: Chest pain. TECHNIQUE: Frontal and lateral views of the chest were obtained. COMPARISON: Chest 2 views 11/15/2022 FINDINGS: There is no pneumonia, pleural effusion, or pneumothorax. The heart size is normal. There is old healed fracture of proximal right humerus. Surgical clips in the right upper quadrant are likely from cholecystectomy. IMPRESSION: 1. No acute cardiopulmonary disease. Reviewed, dictated and finalized at location A. BRIQUETTE MACHINE OPERATOR left ankle x-ray: Radiologist's impression: EXAMINATION: XR ankle LT min 3V DATE: 11/19/2024 12:39 INDICATION: Fall. TECHNIQUE: 4 views of left ankle were obtained. COMPARISON: None. FINDINGS: Alignment is normal. No acute fracture. There is heterotopic ossification distal to lateral malleolus. There is mild ankle joint osteoarthritis. IMPRESSION: 1. Mild ankle joint osteoarthritis. Reviewed, dictated and finalized at location A. BRIQUETTE MACHINE OPERATOR left foot x-ray: Radiologist's impression: EXAMINATION: XR foot LT min 3V DATE: 11/19/2024 12:39 INDICATION: Fall. TECHNIQUE: 4 views of left foot were obtained. COMPARISON: Left foot radiographs 08/09/2012 FINDINGS: There is moderate hallux valgus. There is chronic absence of the distal aspect of fifth proximal phalanx. There is chronic deformity of the head of the fourth proximal phalanx. There is chronic varus angulation at third proximal interphalangeal joint with chronic deformity of head of third proximal phalanx. There is ankylosis of second proximal interphalangeal joint. No acute fracture. There is mild osteoarthritis of some of the midfoot joints. There is an enthesophyte at plantar aspect of calcaneal tuberosity. IMPRESSION: 1. Moderate hallux valgus. 2. Mild polyarticular osteoarthritis. 3. Chronic deformities of some of the toes. Reviewed, dictated and finalized at location A. BRIQUETTE MACHINE OPERATOR CT of right knee: Radiologist's impression: EXAMINATION: CT knee RT wo con DATE: 11/19/2024 14:20 INDICATION: Right knee pain. TECHNIQUE: Computed tomography (CT) of the right knee was performed without intravenous contrast. Automated exposure control and iterative reconstruction technique were employed. The dose-length product was 426.63 mGy-cm. COMPARISON: Right knee radiographs 11/19/2024 FINDINGS: There is a total right knee arthroplasty in near-anatomic alignment with patellar resurfacing. No fracture. No periprosthetic lucency to suggest loosening or infection. There is a small knee joint effusion with small loose bodies. IMPRESSION: 1. Total right knee arthroplasty in near-anatomic alignment. 2. Small knee joint effusion with small loose bodies. Reviewed, dictated and finalized at location A. BRIQUETTE MACHINE OPERATOR Assessment and Plan Assessment and plan (1) Fall from ground level: Code(s): W18.30XA - Fall on same level, unspecified, initial encounter Status: Acute Assessment and Plan: head CT was negative for any acute intracranial process right knee x-ray and right knee CT showed total right knee arthroplasty in near anatomic alignment, small right knee joint effusion with loose bodies left ankle x-ray showed mild ankle joint osteoarthritis. Left foot x-ray showed moderate hallux valgus, mild polyarticular osteoarthritis, chronic deformities of some of the toes PT and OT ordered continue fall precautions continue pain control with [place] consult case management for potential rehab needs continue ibuprofen and Neurontin which are home medications (2) Weakness: Code(s): R53.1 - Weakness Status: Acute Assessment and Plan: PT and OT ordered Case Management consulted for potential rehab needs (3) Mixed hyperlipidemia: Code(s): E78.2 - Mixed hyperlipidemia Status: Acute Assessment and Plan: continue atorvastatin (4) GERD (gastroesophageal reflux disease): Qualifiers: Esophagitis presence: without esophagitis Qualified Code(s): K21.9 - Gastro-esophageal reflux disease without esophagitis Code(s): K21.9 - Gastro-esophageal reflux disease without esophagitis Status: Acute Assessment and Plan: continue Protonix 40 mg daily (5) Depression: Qualifiers: Active/Remission status: currently active Depression Type: major depressive disorder Major depression episode severity: mild Major depression recurrence: recurrent Qualified Code(s): F33.0 - Major depressive disorder, recurrent, mild Code(s): F32.A - Depression, unspecified Status: Acute Assessment and Plan: continue Wellbutrin (6) IBS (irritable bowel syndrome): Qualifiers: Irritable bowel syndrome type: with diarrhea Qualified Code(s): K58.0 - Irritable bowel syndrome with diarrhea Code(s): K58.9 - Irritable bowel syndrome, unspecified Status: Acute Assessment and Plan: continue Bentyl 10 mg p.o. b.i.d. Quality VTE Prophylaxis VTE prophylaxis: pharmacologic ordered Hospitalist MIPS Advance Care Plan I have confirmed that the patient's Advanced Care Plan is present, code status is documented, or surrogate decision maker is listed in patient medical record.: Yes Medication Reconciliation I have utilized all available resources to obtain, update and review the patients current medications (includes all prescriptions, OTC, herbals, cannabis, and nutritional supplements).: Yes
[2024-11-19] MEDS: GABAPENTIN 400 MG CAPSULE PO (18:56)
[2024-11-19] MEDS: DICYCLOMINE HCL 10 MG CAPSULE PO (18:57)
[2024-11-19] MEDS: CHOLESTYRAMINE (W/ SUGAR) 4 GM POWD.PACK PO (23:08)
[2024-11-20] MEDS: HYDROcodone/acetaminophen (*CRX) 5-325 MG TABLET 1 TAB PO ×4 (04:24→18:37)
[2024-11-20 06:00] VITALS: BP 121/71; PULSE 84; RESP 16; TEMP 36.7; O2SAT 98
[2024-11-20 06:47] LABS: Basophils Percent Auto 0.8 % (0.2-1.2); Eosinophils Absolute Auto 0.2 K/mm3 (0-0.3); Eosinophils Percent Auto 3.6 % (0-4.4); Hematocrit 39.6 % (37.0-47.0); Hemoglobin 12.1 g/dL (12.0-15.0); Immature Granulocyte Absolute 0.01 K/mm3 (0.00-0.031); Immature Granulocyte Percent A 0.2 % (0-0.5); Lymphocytes Absolute Auto 1.16 K/mm3 (0.9-3.2); Lymphocytes Percent Auto 22.2 % (18.3-44.2); Mean Corpuscular HGB Conc 30.6 g/dl (32-36); Mean Corpuscular Hemoglobin 26.3 pg (26-34); Mean Corpuscular Volume 86.1 fl (80-100); Mean Platelet Volume 9.9 fl (7.4-10.4); Monocytes Absolute Auto 0.4 K/mm3 (0.1-0.6); Monocytes Percent Auto 7.3 % (2.6-8.5); Neutrophils Absolute Auto 3.5 K/mm3 (1.3-6.7); Neutrophils Percent Auto 65.9 % (45.5-73.1); Platelet Count Result 225 k/mm3 (150-375); Red Cell Distribution Width 13.7 % (11.5-14.5); White Blood Count 5.2 K/mm3 (4.5-10.0)
[2024-11-20 07:01] LABS: Alanine Aminotransferase 399 U/L (6-35); Albumin Level 3.6 g/dL (3.5-5.1); Alkaline Phosphatase 177 U/L (38-126); Anion Gap 5 mmol/L (4-12); Aspartate Amino Transferase 339 U/L (14-36); Bilirubin,Total 0.8 mg/dL (0.2-1.3); Blood Urea Nitrogen 20 mg/dL (7-17); Calcium 8.8 mg/dL (8.4-10.2); Carbon Dioxide 26 mmol/L (22-30); Chloride 106 mmol/L (98-107); Estimated CRCL calculation 72 ml/min; Estimated Glomerular Filt Rate > 60; Glucose 96 mg/dL (65-110); Potassium 4.1 mmol/L (3.4-5.0); Sodium 137 mmol/L (137-145)
--- NOTE | 2024-11-20 07:05 | PM.IMPN ---
Progress Note: A&P Assessment and Plan (1) Fall from ground level: Code(s): W18.30XA - Fall on same level, unspecified, initial encounter Status: Acute Assessment and Plan: Patient was walking to the restroom, noticed her foot was asleep and had a fell into her bookcase. During the fall she twisted to the left and has since been unable to bear weight or bend her knee. - head CT was negative for any acute intracranial process - chest XR was negative for any acute cardiopulmonary process - right knee x-ray and right knee CT showed total right knee arthroplasty in near anatomic alignment, small right knee joint effusion with loose bodies - left ankle x-ray showed mild ankle joint osteoarthritis. - left foot x-ray showed moderate hallux valgus, mild polyarticular osteoarthritis, chronic deformities of some of the toes - mri knee ordered, ativan to be given prior to imaging for anxiety - continue fall precautions - continue pain control with [place] - knee immobilizer in place - continue ibuprofen and Neurontin which are home medications - consult case management for potential rehab needs - ortho consulted (2) Weakness: Code(s): R53.1 - Weakness Status: Acute Assessment and Plan: PT and OT to be ordered following imaging Case Management consulted for potential rehab needs (3) Mixed hyperlipidemia: Code(s): E78.2 - Mixed hyperlipidemia Status: Acute Assessment and Plan: continue atorvastatin (4) GERD (gastroesophageal reflux disease): Qualifiers: Esophagitis presence: without esophagitis Qualified Code(s): K21.9 - Gastro-esophageal reflux disease without esophagitis Code(s): K21.9 - Gastro-esophageal reflux disease without esophagitis Status: Acute Assessment and Plan: continue Protonix 40 mg daily (5) Depression: Qualifiers: Active/Remission status: currently active Depression Type: major depressive disorder Major depression episode severity: mild Major depression recurrence: recurrent Qualified Code(s): F33.0 - Major depressive disorder, recurrent, mild Code(s): F32.A - Depression, unspecified Status: Acute Assessment and Plan: continue Wellbutrin (6) IBS (irritable bowel syndrome): Qualifiers: Irritable bowel syndrome type: with diarrhea Qualified Code(s): K58.0 - Irritable bowel syndrome with diarrhea Code(s): K58.9 - Irritable bowel syndrome, unspecified Status: Acute Assessment and Plan: continue Bentyl 10 mg p.o. b.i.d. Time Spent With Patient Time with patient: Greater than 35 minutes Subjective Date/time seen: 11/20/24 07:05 Interval history: 74-year-old female we do this right with a significant past medical history of hyperlipidemia, GERD, breast cancer status post mastectomy, GERD, irritable bowel syndrome, former smoker who presented to the hospital after sustaining a ground level fall which occurred last night. Patient is pleasant lying in bed with at bedside. Per patient had twisted to the left during her fall while her right leg remained in place. He is unsure if he heard a pop. Patient continues to endorse right knee pain. She remains in the knee immobilizer at this time. During assessment patient was unable to bend her knee secondary to pain. She has no other complaints denying chest pain, shortness a breath, palpitations, nausea/ vomiting, and abdominal pain. Review of Systems Review of Systems: All systems reviewed & are unremarkable except as noted in HPI and below Exam Narrative: AF HR 84 RR 16 Spo2 98 BP 121/71 General: well nourished, well-developed female in no acute respiratory distress who is nontoxic appearing, lying semi recumbent in bed. HEENT: Normocephalic. Extraocular movement intact. Sclera clear and anicteric. No facial asymmetry. Abrasion to the right eyebrow. Bruising to the chin. No vision changes. Chest: Lungs are clear to auscultation bilaterally. No wheezes or crackles. CV: Heart was regular rate and rhythm. S1-S2. No murmurs, gallops, or rubs. Abd: Abdomen was soft. Nontender. Nondistended. Positive bowel sounds. No organomegaly or masses. Ext: Slight edema to the right knee, decreased ROM. Patient will not bend knee or allow ROM to be performed 2/2 pain. Left club foot. No clubbing, cyanosis. 2+ DP pulses bilaterally. Neuro: Patient is alert and oriented x4. Speech is clear. Objective Data Vital Signs Vital Signs: Vital Signs - 24 hr 11/19/24 09:23 11/19/24 09:31 11/19/24 10:01 Temperature 98 F Pulse Rate 83 71 90 Respiratory Rate 18 18 16 Blood Pressure 143/85 H 128/74 136/75 Pulse Oximetry 98 95 100 Oxygen Delivery Room Air 02/07/25 10:16 11/19/24 10:31 11/19/24 11:01 Temperature Pulse Rate 95 93 90 Respiratory Rate 18 18 18 Blood Pressure 134/70 136/74 132/75 Pulse Oximetry 96 98 98 Oxygen Delivery 11/19/24 12:37 11/19/24 15:35 11/19/24 20:00 Temperature Pulse Rate 81 80 80 Respiratory Rate 18 18 18 Blood Pressure 127/80 120/68 Pulse Oximetry 93 99 99 Oxygen Delivery Room Air 11/19/24 23:00 11/20/24 06:00 Temperature 97.4 F L 98.1 F Pulse Rate 85 84 Respiratory Rate 16 16 Blood Pressure 114/61 121/71 Pulse Oximetry 98 98 Oxygen Delivery Intake/Output Intake/Output: Intake & Output 11/17/24 11/18/24 11/19/24 11/20/24 23:59 23:59 23:59 23:59 Intake Total 240 550 Balance 240 550 Meds/Results Medications: Active Medications Generic Name Dose Route Start Last Admin Trade Name Freq PRN Reason Stop Dose Admin Hydrocodone Bitart/Acetaminophen 1 tab 11/19/24 16:18 11/20/24 04:24 Hydrocodone/Acetaminophen (*Crx) 5-325 Mg Tablet PO 1 tab Q4H PRN Administration Pain Rated 4-6 Atorvastatin Calcium 10 mg 11/20/24 09:00 Atorvastatin 10 Mg Tablet PO DAILY SILVANO Bupropion HCl 100 mg 11/19/24 18:05 11/19/24 18:57 Bupropion Hcl 100 Mg Tablet PO Not Given BID [facility] Cholestyramine Resin 4 gm 11/19/24 22:00 11/19/24 23:08 Cholestyramine (W/ Sugar) 4 Gm Powd.Pack PO 4 gm Q24H SILVANO Administration Dicyclomine HCl 10 mg 11/19/24 18:05 11/19/24 18:57 Dicyclomine Hcl 10 Mg Capsule PO 10 mg BID SILVANO Administration Enoxaparin Sodium 40 mg 11/20/24 09:00 Enoxaparin 40 Mg/0.4 Ml Syringe SUB-Q DAILY SILVANO Gabapentin 400 mg 11/19/24 18:05 11/19/24 18:56 Gabapentin 400 Mg Capsule PO 400 mg TID SILVANO Administration Ibuprofen 600 mg 11/19/24 18:05 11/19/24 18:58 Ibuprofen 600 Mg Tablet PO Not Given TID [facility] Melatonin 5 mg 11/19/24 18:03 Melatonin 5 Mg Tablet PO HS PRN Insomnia Miscellaneous Information 0 each 11/19/24 22:50 Vibegron [Gemtesa]- Nonoformulary. Please Obtain A Home Supply If Possible And Send To [facility] 12/19/24 22:49 CLARIFY SILVANO Non-Formulary Medication 75 mg 11/19/24 22:45 Vibegron [Gemtesa] PO 12/19/24 22:44 HS SILVANO Ondansetron HCl 4 mg 11/19/24 17:54 Ondansetron Inj 4 Mg/2 Ml Vial IV PUSH Q6H PRN Nausea And Vomiting Pantoprazole Sodium 40 mg 11/20/24 09:00 Pantoprazole 40 Mg Tablet PO QAM [facility] Vitamin D 2,000 units 11/20/24 09:00 Cholecalciferol 1,000 Units Tablet PO DAILY [facility] Radiology Results: ITS Impressions Head CT 11/19/24 09:48 IMPRESSION: 1. No fracture or acute intracranial process. Knee X-Ray 11/19/24 10:04 IMPRESSION: 1. Total right knee arthroplasty in near-anatomic alignment. 2. Small right knee joint effusion with loose bodies. Chest X-Ray 11/19/24 12:44 IMPRESSION: 1. No acute cardiopulmonary disease. Ankle X-Ray 11/19/24 12:47 IMPRESSION: 1. Mild ankle joint osteoarthritis. Foot X-Ray 11/19/24 12:48 IMPRESSION: 1. Moderate hallux valgus. 2. Mild polyarticular osteoarthritis. 3. Chronic deformities of some of the toes. Knee CT 11/19/24 14:21 IMPRESSION: 1. Total right knee arthroplasty in near-anatomic alignment. 2. Small knee joint effusion with small loose bodies. Labs Labs: Laboratory Results - last 24 hr 11/19/24 11/20/24 10:54 06:00 WBC 6.4 5.2 RBC 4.58 4.60 Hgb 12.3 12.1 Hct 39.1 39.6 MCV 85.4 86.1 MCH 26.9 26.3 MCHC 31.5 L 30.6 L RDW 13.5 13.7 Plt Count 227 225 MPV 9.5 9.9 Immature Gran % (Auto) 0.3 0.2 Neut % (Auto) 74.1 H 65.9 Lymph % (Auto) 17.3 L 22.2 Kay % (Auto) 5.8 7.3 Eos % (Auto) 1.9 3.6 Baso % (Auto) 0.6 0.8 Lymph # (Auto) 1.11 1.16 Kay # (Auto) 0.4 0.4 Eos # (Auto) 0.1 0.2 Baso # (Auto) 0.0 0.0 Abs Immat Gran (auto) 0.02 0.01 Absolute Neuts (auto) 4.8 3.5 Absolute Nucleated RBC 0.000 0.000 Nucleated RBC % 0.0 0.0 PT 13.0 INR 0.9 APTT 28.1 Sodium 139 137 Potassium 4.3 4.1 Chloride 105 106 Carbon Dioxide 27 26 Anion Gap 7 5 BUN 20 H 20 H Creatinine 0.51 L 0.54 L Estim Creat Clear Calc 75 72 Estimated GFR > 60 > 60 Glucose 106 96 Calcium 9.0 8.8 Total Bilirubin 1.1 0.8 AST 70 H 339 H ALT 39 H 399 H Alkaline Phosphatase 128 H 177 H Troponin I < 0.012 Total Protein 7.0 6.0 L Albumin 3.8 3.6 Lipase 89 Quality VTE Prophylaxis VTE prophylaxis: pharmacologic ordered
[2024-11-20 08:00] VITALS: PULSE 84; RESP 16; O2SAT 95
[2024-11-20] MEDS: CHOLECALCIFEROL 1,000 UNITS TABLET 2000 UNITS PO (08:47)
[2024-11-20] MEDS: IBUPROFEN 600 MG TABLET PO ×3 (08:47→18:38)
[2024-11-20] MEDS: ATORVASTATIN 10 MG TABLET PO (08:47)
[2024-11-20] MEDS: DICYCLOMINE HCL 10 MG CAPSULE PO ×2 (08:47→18:38)
[2024-11-20] MEDS: PANTOPRAZOLE 40 MG TABLET PO (08:48)
[2024-11-20] MEDS: buPROPion HCL 100 MG TABLET PO ×2 (08:48→18:38)
[2024-11-20] MEDS: GABAPENTIN 400 MG CAPSULE PO ×3 (08:48→18:38)
[2024-11-20] MEDS: ENOXAPARIN 40 MG/0.4 ML SYRINGE SUB-Q (08:58)
[2024-11-20 14:00] VITALS: BP 101/66; PULSE 84; RESP 16; TEMP 36.8; O2SAT 95
--- NOTE | 2024-11-20 16:00 | P.CONOP_ITS ---
Assessment and Plan Assessment and plan (1) Strain of right knee: Qualifiers: Encounter type: initial encounter Qualified Code(s): S86.911A - Strain of unspecified muscle(s) and tendon(s) at lower leg level, right leg, initial encounter Code(s): S86.911A - Strain of unspecified muscle(s) and tendon(s) at lower leg level, right leg, initial encounter Status: Acute Assessment and Plan: New patient evaluation for right knee pain status post fall. Patient is 15 years Status post total knee arthroplasty. Radiographs and CT scan show arthroplasty in good position. No acute changes or fracture. Exam findings consistent with medial collateral ligament partial sprain. Reviewed with patient and . MRI not indicated status post total knee. Conservative care with ice and pain medication. Knee immobilizer for ambulation. PT/OT with weight-bearing as tolerated. May be candidate for acute rehab based on limitations. (2) Fall from ground level: Code(s): W18.30XA - Fall on same level, unspecified, initial encounter Status: Acute History of Present Illness HPI Consult date: 11/20/24 Requesting physician: Kira East PA-C Chief complaint: Right Knee Strain Narrative: 74-year-old status post total knee replacement 15 years ago, was at home and fell twisting her right knee. Medial sided right knee pain and presented to the emergency room and was admitted for further care. Denies numbness or tingling. Denies loss of consciousness, head, neck or back injury. doing well with her knee replacement prior to the injury. No other joint complaints. Review of Systems 2 Constitutional: Constitutional: Denies fever(s) Eyes: Eyes: Denies blurry vision ENT: Reports Normal hearing present Cardiovascular: Cardiovascular: Denies chest pain and Denies dyspnea Respiratory: Respiratory: Denies dyspnea and Denies wheezing Gastrointestinal: Gastrointestinal: Denies abdominal pain Genitourinary: Genitourinary: Denies urinary urgency Musculoskeletal: Musculoskeletal: Reports as per HPI and Denies numbness Integumentary/Breasts: Skin/Breast: Denies changing lesions and Denies sores Neurologic: Reports Normal hearing present, Denies behavioral changes, Denies confusion, Denies numbness and Denies convulsions Psychiatric: Psychiatric: Denies behavioral changes, Denies confusion and Denies hallucinations Endocrine: Endocrine: Denies heat intolerance Hematologic/Lymphatic: Hematologic/Lymphatic: Denies easy bleeding Allergic/Immunologic: Allergic/Immunologic: Denies wheezing PMFSH Past Medical History Medical History History of COVID-2018 HX: breast cancer cancer free x 30 years Club foot Pain of right thumb Gastric ulcer History of measles History of mumps History of chicken pox Dysphagia Hyperlipidemia Other symptoms involving urinary system History of left breast cancer GERD (gastroesophageal reflux disease) IBS (irritable bowel syndrome) Surgical History Surgical History History of cataract surgery bilateral History of endoscopy History of tonsillectomy H/O arthroscopy of right knee S/P foot surgery, left H/O section History of cholecystectomy History of mastectomy H/O total knee replacement Family History Family History Father , age 86 Cerebrovascular accident Family history of osteoarthritis Arthritis Alzheimer disease Mother , age 84 Family history of thyroid disease Family history of aortic aneurysm Family history of emphysema Sibling IBS (irritable bowel syndrome) Other Family history of malignant neoplasm of breast in first degree relative Social History Social History Smoking packs per day: 0 Smoking cigarettes per day: 0.0 Years smoked: 10 Smoking pack-years: 0.00 Smoking status: Former smoker Second hand tobacco smoke exposure: No Alcohol intake: never Substance use: never Substance use type: does not use Do You Feel Safe in your Home?: Yes Lack of Transportation: No Lack of Food: Never True Current Housing: I Have Housing Concerned About Future Housing: No Difficulty Paying Gas/Electric Bills: No Difficulty Paying for Meds: No Currently Unemployed: No Education: Master's Degree or Higher Difficulty w/ Childcare or Family Care: No Living arrangements: with family Occupation/Education: retired Gender identity (if verbalized by the patient): Female Spiritual care concerns: No Meds Home Medications and Allergies Home Medications ?Medication ?Instructions ?Recorded ?Confirmed ?Type melatonin 1 mg tablet 5 mg PO HS PRN Insomnia 10/16/22 11/19/24 History gabapentin 400 mg capsule 400 mg PO TID 04/08/23 11/19/24 History vibegron 75 mg tablet (Gemtesa) 75 mg PO HS 04/08/23 11/19/24 History cholestyramine (with sugar) 4 gram 4 g PO DAILY #90 ea 12/01/23 11/19/24 Rx powder for susp in a packet cetirizine 10 mg capsule (Zyrtec) 10 mg PO DAILY PRN allergy symptoms 01/13/24 11/19/24 History phendimetrazine tartrate 105 mg 105 mg PO DAILY 01/13/24 11/19/24 History capsule,extended release pantoprazole 40 mg tablet,delayed See Rx Instructions .Route 03/24/24 11/19/24 Rx release .COMPLEX #30 tabs ibuprofen 600 mg tablet 600 mg PO TID #270 tabs 07/08/24 11/19/24 Rx cholecalciferol (vitamin D3) 50 50 mcg PO DAILY 08/18/24 11/19/24 History mcg (2,000 unit) capsule atorvastatin 10 mg tablet See Rx Instructions .Route 10/27/24 11/19/24 Rx .COMPLEX #90 tabs bupropion HCl 100 mg tablet 100 mg PO BID 11/19/24 11/19/24 History dicyclomine 10 mg capsule 10 mg PO BID 11/19/24 11/19/24 History hydrocodone 5 mg-acetaminophen 325 1 tablet PO Q8H PRN pain #14 tabs 11/19/24 Rx mg tablet Allergies Allergy/AdvReac Type Severity Reaction Status Date / Time azithromycin Allergy Severe Diarrhea Verified 11/19/24 17:15 Cephalosporins Allergy Severe Diarrhea Verified 11/19/24 17:15 erythromycin base Allergy Severe Diarrhea Verified 11/19/24 17:15 hyaluronic acid Allergy Intermediate RASH Verified 11/19/24 17:15 naproxen Allergy Intermediate Rash Verified 11/19/24 17:15 Penicillins Allergy Intermediate Rash Verified 11/19/24 17:15 Sulfa (Sulfonamide Allergy Intermediate Rash Verified 11/19/24 17:15 Antibiotics) hyaluronate sodium, AdvReac Intermediate Rash Verified 11/19/24 17:15 stabilized Vital Signs Vital Signs - 24 hr 11/19/24 20:00 11/19/24 23:00 11/20/24 06:00 Temperature 97.4 F L 98.1 F Pulse Rate 80 85 84 Respiratory Rate 18 16 16 Blood Pressure 114/61 121/71 Pulse Oximetry 99 98 98 Oxygen Delivery Room Air 11/20/24 08:00 11/20/24 14:00 Temperature 98.2 F Pulse Rate 84 84 Respiratory Rate 16 16 Blood Pressure 101/66 Pulse Oximetry 95 95 Oxygen Delivery Room Air Exam 2 Const: General: healthy appearing; No in distress or confusion O rientation/consciousness: oriented to person, oriented to place, oriented to time and No confusion HENMT: Head: normal to inspection, normocephalic and atraumatic Eyes: Conjunctivae: conjunctivae normal Sclera: sclerae normal Neck: Neck: supple and nontender Resp: Effort & Inspection: normal respiratory effort and no audible wheezes Cardio: Rate: regular rate Rhythm: regular rhythm Skin: General skin exam: no rashes or lesions noted Neuro: General: oriented to person, oriented to place, oriented to time and No confusion Extrem: Right upper extremity: normal to inspection Left upper extremity: n ormal to inspection Right lower extremity: hip/thigh Details: normal ROM; no tenderness, knee Details: tenderness (anterior and medial joint line ) Location: of the medial joint line (moderate ), swelling (peripatellar and medial joint ), abnormal ROM (active range of motion -5 degrees extension, 90 degrees flexion) Details: pain with active ROM during Details: in extension and in flexion, knee ligament exam normal Details: anterior drawer test normal, posterior drawer test normal and varus stress test normal, knee ligament exam abnormal Details: valgus stress test normal (painful medial ) and other (Active flexion and extension intact) and foot Details: normal capillary refill, toes with normal ROM, vascular exam Details: dorsalis pedis pulse present and motor-sensory exam Details: light-touch normal; no tenderness; no edema Left lower extremity: n ormal to inspection, normal capillary refill and knee Details: normal ROM (Active extension 5, flexion 130) and knee ligament exam normal; no tenderness Upper/lower leg/hip images: 1. Surgical incision well healed. No erythema, no warmth. Mild swelling medially Psych: Affect: normal affect Results Labs 11/20/24 06:00 11/20/24 06:00 Labs: Abnormal lab results 11/20/24 Range/Units 06:00 MCHC 30.6 L (32-36) g/dl BUN 20 H (7-17) mg/dL Creatinine 0.54 L (0.7-1.0) mg/dL AST 339 H (14-36) U/L ALT 399 H (6-35) U/L Alkaline Phosphatase 177 H (38-126) U/L Total Protein 6.0 L (6.3-8.2) g/dL H & H 11/19/24 11/20/24 Range/Units 10:54 06:00 Hgb 12.3 12.1 (12.0-15.0) g/dL Hct 39.1 39.6 (37.0-47.0) % Coagulation 11/19/24 Range/Units 10:54 INR 0.9 All other labs normal. Diagnostic results Knee x-ray: image reviewed (Status post total knee arthroplasty in good position. No acute changes.) Knee CT: image reviewed (Knee arthroplasty in good position. No acute changes.) Ankle/Foot x-ray: image reviewed (Negative)
[2024-11-20 21:08] VITALS: BP 121/63; PULSE 80; RESP 13; TEMP 36.4; O2SAT 97
[2024-11-20] MEDS: CHOLESTYRAMINE (W/ SUGAR) 4 GM POWD.PACK PO (22:30)
[2024-11-21 05:56] VITALS: BP 117/84; PULSE 84; RESP 12; TEMP 36.3; O2SAT 90
[2024-11-21] MEDS: HYDROcodone/acetaminophen (*CRX) 5-325 MG TABLET 1 TAB PO ×2 (06:34→10:21)
[2024-11-21 06:37] LABS: Basophils Absolute Auto 0.1 K/mm3 (0.0-0.1); Basophils Percent Auto 0.8 % (0.2-1.2); Eosinophils Absolute Auto 0.3 K/mm3 (0-0.3); Eosinophils Percent Auto 4.5 % (0-4.4); Hematocrit 37.9 % (37.0-47.0); Hemoglobin 11.6 g/dL (12.0-15.0); Immature Granulocyte Absolute 0.02 K/mm3 (0.00-0.031); Immature Granulocyte Percent A 0.3 % (0-0.5); Lymphocytes Absolute Auto 1.28 K/mm3 (0.9-3.2); Lymphocytes Percent Auto 21.5 % (18.3-44.2); Mean Corpuscular HGB Conc 30.6 g/dl (32-36); Mean Corpuscular Hemoglobin 26.7 pg (26-34); Mean Corpuscular Volume 87.1 fl (80-100); Monocytes Absolute Auto 0.5 K/mm3 (0.1-0.6); Monocytes Percent Auto 8.4 % (2.6-8.5); Neutrophils Absolute Auto 3.8 K/mm3 (1.3-6.7); Neutrophils Percent Auto 64.5 % (45.5-73.1); Platelet Count Result 205 k/mm3 (150-375); Red Blood Count 4.35 M/mm3 (4.2-5.4); Red Cell Distribution Width 13.5 % (11.5-14.5); White Blood Count 5.9 K/mm3 (4.5-10.0)
[2024-11-21 06:42] LABS: Alanine Aminotransferase 260 U/L (6-35); Albumin Level 3.4 g/dL (3.5-5.1); Alkaline Phosphatase 163 U/L (38-126); Anion Gap 8 mmol/L (4-12); Aspartate Amino Transferase 117 U/L (14-36); Bilirubin,Total 0.5 mg/dL (0.2-1.3); Blood Urea Nitrogen 19 mg/dL (7-17); Calcium 8.4 mg/dL (8.4-10.2); Carbon Dioxide 24 mmol/L (22-30); Chloride 107 mmol/L (98-107); Estimated CRCL calculation 66 ml/min; Estimated Glomerular Filt Rate > 60; Glucose 97 mg/dL (65-110); Sodium 139 mmol/L (137-145)
--- NOTE | 2024-11-21 06:42 | P.PNIM_ITS ---
Progress Note: A&P Assessment and Plan (1) Fall from ground level: Code(s): W18.30XA - Fall on same level, unspecified, initial encounter Status: Acute Assessment and Plan: Patient was walking to the restroom, noticed her foot was asleep and had a fell into her bookcase. During the fall she twisted to the left and has since been unable to bear weight or bend her knee. - head CT was negative for any acute intracranial process - chest XR was negative for any acute cardiopulmonary process - right knee x-ray and right knee CT showed total right knee arthroplasty in near anatomic alignment, small right knee joint effusion with loose bodies - left ankle x-ray showed mild ankle joint osteoarthritis. - left foot x-ray showed moderate hallux valgus, mild polyarticular osteoarthritis, chronic deformities of some of the toes - continue fall precautions - continue pain control with Kremlin - knee immobilizer in place - continue ibuprofen and Neurontin which are home medications - consult case management for potential rehab needs - ortho consulted Exam findings consistent with medial collateral ligament partial sprain. MRI not indicated status post total knee. Conservative care with ice and pain medication. Knee immobilizer for ambulation. PT/OT with weight-bearing as tolerated. May be candidate for acute rehab based on limitations. (2) Weakness: Code(s): R53.1 - Weakness Status: Acute Assessment and Plan: * PT and OT to be ordered following imaging * Case Management consulted for potential rehab needs (3) Mixed hyperlipidemia: Code(s): E78.2 - Mixed hyperlipidemia Status: Acute Assessment and Plan: * continue atorvastatin (4) GERD (gastroesophageal reflux disease): Qualifiers: Esophagitis presence: without esophagitis Qualified Code(s): K21.9 - Ga stro-esophageal reflux disease without esophagitis Code(s): K21.9 - Gastro-esophageal reflux disease without esophagitis Status: Acute Assessment and Plan: * continue Protonix 40 mg daily (5) Depression: Qualifiers: Depression Type: major depressive disorder Major depression recurrence: recurrent Active/Remission status: currently active Major depression episode severity: mild Qualified Code(s): F33.0 - Major depressive disorder, recurrent, mild Code(s): F32.A - Depression, unspecified Status: Acute Assessment and Plan: * continue Wellbutrin (6) IBS (irritable bowel syndrome): Qualifiers: Irritable bowel syndrome type: with diarrhea Qualified Code(s): K58.0 - Irritable bowel syndrome with diarrhea Code(s): K58.9 - Irritable bowel syndrome, unspecified Status: Acute Assessment and Plan: * continue Bentyl 10 mg p.o. b.i.d. Subjective Date/time seen: 11/21/24 06:42 Interval history: 74-year-old female we do this right with a significant past medical history of hyperlipidemia, GERD, breast cancer status post mastectomy, GERD, irritable bowel syndrome, former smoker who presented to the hospital after sustaining a ground level fall which occurred last night. Review of Systems Review of Systems: All systems reviewed & are unremarkable except as noted in HPI and below Exam Narrative: AF HR General: well nourished, well-developed female in no acute respiratory distress who is nontoxic appearing, lying semi recumbent in bed. HEENT: Normocephalic. Extraocular movement intact. Sclera clear and anicteric. No facial asymmetry. Abrasion to the right eyebrow. Bruising to the chin. No vision changes. Chest: Lungs are clear to auscultation bilaterally. No wheezes or crackles. CV: Heart was regular rate and rhythm. S1-S2. No murmurs, gallops, or rubs. Abd: Abdomen was soft. Nontender. Nondistended. Positive bowel sounds. No organomegaly or masses. Ext: Slight edema to the right knee, decreased ROM. Patient will not bend knee or allow ROM to be performed 2/2 pain. Left club foot. No clubbing, cyanosis. 2+ DP pulses bilaterally. Neuro: Patient is alert and oriented x4. Speech is clear. Objective Data Vital Signs Vital Signs: Vital Signs - 24 hr 11/20/24 08:00 11/20/24 14:00 11/20/24 20:00 Temperature 98.2 F Pulse Rate 84 84 Respiratory Rate 16 16 Blood Pressure 101/66 Pulse Oximetry 95 95 Oxygen Delivery Room Air Room Air 11/20/24 21:08 11/21/24 05:56 Temperature 97.6 F 97.4 F L Pulse Rate 80 84 Respiratory Rate 13 12 Blood Pressure 121/63 117/84 Pulse Oximetry 97 90 Oxygen Delivery Intake/Output Intake/Output: Intake & Output 11/18/24 11/19/24 11/20/24 11/21/24 23:59 23:59 23:59 23:59 Intake Total 240 1190 500 Balance 240 1190 500 Meds/Results Medications: Active Medications Generic Name Dose Route Start Last Admin Trade Name Freq PRN Reason Stop Dose Admin Hydrocodone Bitart/Acetaminophen 1 tab 11/19/24 16:18 11/21/24 06:34 Hydrocodone/Acetaminophen (*Crx) 5-325 Mg Tablet PO 1 tab Q4H PRN Administration Pain Rated 4-6 Atorvastatin Calcium 10 mg 11/20/24 09:00 11/20/24 08:47 Atorvastatin 10 Mg Tablet PO 10 mg DAILY SILVANO Administration Bupropion HCl 100 mg 11/19/24 18:05 11/20/24 18:38 Bupropion Hcl 100 Mg Tablet PO 100 mg BID SILVANO Administration Cholestyramine Resin 4 gm 11/19/24 22:00 11/20/24 22:30 Cholestyramine (W/ Sugar) 4 Gm Powd.Pack PO 4 gm Q24H SILVANO Administration Dicyclomine HCl 10 mg 11/19/24 18:05 11/20/24 18:38 Dicyclomine Hcl 10 Mg Capsule PO 10 mg BID SILVANO Administration Enoxaparin Sodium 40 mg 11/20/24 09:00 11/20/24 08:58 Enoxaparin 40 Mg/0.4 Ml Syringe SUB-Q 40 mg DAILY SILVANO Administration Gabapentin 400 mg 11/19/24 18:05 11/20/24 18:38 Gabapentin 400 Mg Capsule PO 400 mg TID SILVANO Administration Ibuprofen 600 mg 11/19/24 18:05 11/20/24 18:38 Ibuprofen 600 Mg Tablet PO 600 mg TID SILVANO Administration Melatonin 5 mg 11/19/24 18:03 Melatonin 5 Mg Tablet PO HS PRN Insomnia Miscellaneous Information 0 each 11/19/24 22:50 Vibegron [Gemtesa]- Nonoformulary. Please Obtain A Home Supply If Possible And Send To [facility] 12/19/24 22:49 CLARIFY SILVANO Non-Formulary Medication 75 mg 11/19/24 22:45 Vibegron [Gemtesa] PO 12/19/24 22:44 HS SILVANO Ondansetron HCl 4 mg 11/19/24 17:54 Ondansetron Inj 4 Mg/2 Ml Vial IV PUSH Q6H PRN Nausea And Vomiting Pantoprazole Sodium 40 mg 11/20/24 09:00 11/20/24 08:48 Pantoprazole 40 Mg Tablet PO 40 mg QAM SILVANO Administration Vitamin D 2,000 units 11/20/24 09:00 11/20/24 08:47 Cholecalciferol 1,000 Units Tablet PO 2,000 units DAILY SILVANO Administration Radiology Results: ITS Impressions Head CT 11/19/24 09:48 IMPRESSION: 1. No fracture or acute intracranial process. Knee X-Ray 11/19/24 10:04 IMPRESSION: 1. Total right knee arthroplasty in near-anatomic alignment. 2. Small right knee joint effusion with loose bodies. Chest X-Ray 11/19/24 12:44 IMPRESSION: 1. No acute cardiopulmonary disease. Ankle X-Ray 11/19/24 12:47 IMPRESSION: 1. Mild ankle joint osteoarthritis. Foot X-Ray 11/19/24 12:48 IMPRESSION: 1. Moderate hallux valgus. 2. Mild polyarticular osteoarthritis. 3. Chronic deformities of some of the toes. Knee CT 11/19/24 14:21 IMPRESSION: 1. Total right knee arthroplasty in near-anatomic alignment. 2. Small knee joint effusion with small loose bodies. Labs Labs: Laboratory Results - last 24 hr 11/20/24 11/21/24 06:00 05:43 WBC 5.2 RBC 4.60 Hgb 12.1 Hct 39.6 MCV 86.1 MCH 26.3 MCHC 30.6 L RDW 13.7 Plt Count 225 MPV 9.9 Immature Gran % (Auto) 0.2 Neut % (Auto) 65.9 Lymph % (Auto) 22.2 Mcmullen % (Auto) 7.3 Eos % (Auto) 3.6 Baso % (Auto) 0.8 Lymph # (Auto) 1.16 Mcmullen # (Auto) 0.4 Eos # (Auto) 0.2 Baso # (Auto) 0.0 Abs Immat Gran (auto) 0.01 Absolute Neuts (auto) 3.5 Absolute Nucleated RBC 0.000 Nucleated RBC % 0.0 Sodium 137 139 Potassium 4.1 4.0 Chloride 106 107 Carbon Dioxide 26 24 Anion Gap 5 8 BUN 20 H 19 H Creatinine 0.54 L 0.59 L Estim Creat Clear Calc 72 66 Estimated GFR > 60 > 60 Glucose 96 97 Calcium 8.8 8.4 Total Bilirubin 0.8 0.5 AST 339 H 117 H ALT 399 H 260 H Alkaline Phosphatase 177 H 163 H Total Protein 6.0 L 5.0 L Albumin 3.6 3.4 L Quality VTE Prophylaxis VTE prophylaxis: pharmacologic ordered
[2024-11-21] MEDS: DICYCLOMINE HCL 10 MG CAPSULE PO (10:23)
[2024-11-21] MEDS: buPROPion HCL 100 MG TABLET PO (10:23)
[2024-11-21] MEDS: PANTOPRAZOLE 40 MG TABLET PO (10:23)
[2024-11-21] MEDS: ATORVASTATIN 10 MG TABLET PO (10:23)
[2024-11-21] MEDS: CHOLECALCIFEROL 1,000 UNITS TABLET 2000 UNITS PO (10:23)
[2024-11-21] MEDS: GABAPENTIN 400 MG CAPSULE PO (10:23)
[2024-11-21] MEDS: ENOXAPARIN 40 MG/0.4 ML SYRINGE SUB-Q (10:24)
[2024-11-21] MEDS: IBUPROFEN 600 MG TABLET PO (10:24)
--- NOTE | 2024-11-21 12:26 | P.DS_ITS ---
DS: Admitting Diagnosis Discharge Date 11/21/2023 Admitting Diagnosis Fall from ground level strain of right knee weakness hyperlipidemia GERD depression IBS DS: Discharge Diagnosis Discharge Diagnosis (1) Fall from ground level: Code(s): W18.30XA - Fall on same level, unspecified, initial encounter Status: Acute (2) Strain of right knee: Qualifiers: Encounter type: initial encounter Qualified Code(s): S86.911A - Strain of unspecified muscle(s) and tendon(s) at lower leg level, right leg, initial encounter Code(s): S86.911A - Strain of unspecified muscle(s) and tendon(s) at lower leg level, right leg, initial encounter Status: Acute (3) Weakness: Code(s): R53.1 - Weakness Status: Acute (4) Mixed hyperlipidemia: Code(s): E78.2 - Mixed hyperlipidemia Status: Acute (5) GERD (gastroesophageal reflux disease): Qualifiers: Esophagitis presence: without esophagitis Qualified Code(s): K21.9 - Gastro-esophageal reflux disease without esophagitis Code(s): K21.9 - Gastro-esophageal reflux disease without esophagitis Status: Acute (6) Depression: Qualifiers: Depression Type: major depressive disorder Major depression recurrence: recurrent Active/Remission status: currently active Major depression episode severity: mild Qualified Code(s): F33.0 - Major depressive disorder, recurrent, mild Code(s): F32.A - Depression, unspecified Status: Acute (7) IBS (irritable bowel syndrome): Qualifiers: Irritable bowel syndrome type: with diarrhea Qualified Code(s): K58.0 - Irritable bowel syndrome with diarrhea Code(s): K58.9 - Irritable bowel syndrome, unspecified Status: Acute DS: Summary Hospital Course Reason for hospitalization: Fall from ground level strain of right knee weakness hyperlipidemia GERD depression IBS Hospital Course: 74-year-old female with a significant past medical history of hyperlipidemia, breast cancer status post mastectomy, GERD, irritable bowel syndrome, former smoker who presented to the hospital after sustaining a ground level fall. Patient was walking to the restroom, noticed her foot was asleep and fell into her bookcase. She denies loss of consciousness. Head CT was negative for any acute intracranial process. Chest XR was negative for any acute cardiopulmonary process. Right knee x-ray and right knee CT showed total right knee arthroplasty in near anatomic alignment, small right knee joint effusion with loose bodies. Left ankle x-ray showed mild ankle joint osteoarthritis. Left foot x-ray showed moderate hallux valgus, mild polyarticular osteoarthritis, chronic deformities of some of the toes. Patient was placed in a knee immobilizer and ortho was consulted. Per ortho exam finding were consistent with a MCL partial sprain. No MRI was indicated due to patient being post total knee. She is to remain in the knee immobilizer and worked with PT who recommended outpatient therapy. Patient is to continue conservative therapy with ice and pain medications. Script given for outpatient therapy. At time of discharge patient had no complaints stating that the pain had improved and she did well with therapy. She also denied chest pain, palpitations, shortness of breath, nausea/vomiting and abdominal pain. Patient discharged home with outpatient therapy. She is to follow up with her primary care provider in 1 week. Status at Discharge Functional status at discharge: independent ambulation Time Spent with Patient Time attestation: Total time spent providing and/or coordinating discharge services: Time spent: Greater than 30 minutes Exam Narrative: AF HR 84 RR 12 SpO2 90 BP 117/84 General: female in no acute respiratory distress who is nontoxic appearing, sitting up in chair HEENT: Normocephalic. Extraocular movement intact. Sclera clear and anicteric. No facial asymmetry. Abrasion to the right eyebrow. Bruising to the chin. No vision changes. Chest: Lungs are clear to auscultation bilaterally. No wheezes or crackles. CV: Heart was regular rate and rhythm. S1-S2. No murmurs, gallops, or rubs. Abd: Abdomen was soft. Nondistended. Positive bowel sounds. Ext: Knee immobilizer in place. Left club foot. No clubbing, cyanosis. 2+ DP pulses bilaterally. Neuro: Patient is alert and oriented x4. Speech is clear. DS: Data Data Completed and Pending Completed studies during hospitalization: knee CT foot x-ray ankle x-ray chest x-ray knee x-ray head CT Labs on day of discharge: Labs from last 24 hours 11/21/24 11/21/24 05:43 05:42 WBC 5.9 RBC 4.35 Hgb 11.6 L Hct 37.9 MCV 87.1 MCH 26.7 MCHC 30.6 L RDW 13.5 Plt Count 205 MPV 10.0 Immature Gran % (Auto) 0.3 Neut % (Auto) 64.5 Lymph % (Auto) 21.5 Clinch % (Auto) 8.4 Eos % (Auto) 4.5 H Baso % (Auto) 0.8 Lymph # (Auto) 1.28 Clinch # (Auto) 0.5 Eos # (Auto) 0.3 Baso # (Auto) 0.1 Abs Immat Gran (auto) 0.02 Absolute Neuts (auto) 3.8 Absolute Nucleated RBC 0.000 Nucleated RBC % 0.0 Sodium 139 Potassium 4.0 Chloride 107 Carbon Dioxide 24 Anion Gap 8 BUN 19 H Creatinine 0.59 L Estim Creat Clear Calc 66 Estimated GFR > 60 Glucose 97 Calcium 8.4 Total Bilirubin 0.5 AST 117 H ALT 260 H Alkaline Phosphatase 163 H Total Protein 5.0 L Albumin 3.4 L Discharge Plan Discharge Attending physician on discharge: Surya Cruz Consulting providers: Brent Jack Discharging Clinician: Kira East Anticipated Discharge Date/Time: 11/21/24 12:16 Patient Disposition: Home, Self-Care Activity: as tolerated Diet: as tolerated and heart healthy Discharge Instructions: Discharge disposition: Patient admitted to the hospital after a fall for a medial collateral ligament partial sprain Evaluated by orthopedics during admission No restrictions per ortho, continue outpatient physical therapy and remain weight bearing as tolerated Conservative care with ice and pain medication. Knee immobilizer for ambulation. Take medications as prescribed Continue Tylenol and ibuprofen for pain [place] for break through pain, attached is information on this medication. Do not drive or operate heavy machinery on this medication. Take caution while standing, rising, or moving Change positions slowly taking a break between each position change If you standing feel dizzy sit back down and take a break Encouraged to continue with yearly vaccinations Return to the emergency department if he developed sudden shortness of breath, chest pain, nausea, vomiting, upset stomach or intractable diarrhea Return to the emergency department if you develop fever greater than 101.5 Follow-up with the primary care physician within 1-2 weeks Thank you for choosing [facility] for your healthcare needs Patient Instructions: Hydrocodone/Acetaminophen (By mouth), Knee Sprain (DC), Pain Management in Older Adults (DC), Knee Immobilizer (DC), Knee Sprain Exercises (GEN) Patient Language: Burkinan Stand Alone Forms: General Discharge Information Follow-up/Referrals: Brent Jack MD [Physician] - Zabrina Cox MD [Primary Care Provider] - 1 Week Discharge Medications: New hydrocodone-acetaminophen 5-325 mg tablet 1 tablet PO Q8H PRN (Reason: pain) Qty: 14 0RF Continued gabapentin 400 mg capsule 400 mg PO TID Gemtesa 75 mg tablet 75 mg PO HS cholecalciferol (vitamin D3) 50 mcg (2,000 unit) capsule 50 mcg PO DAILY phendimetrazine tartrate 105 mg capsule, extended release 105 mg PO DAILY Zyrtec 10 mg capsule 10 mg PO DAILY PRN (Reason: allergy symptoms) bupropion HCl 100 mg tablet 100 mg PO BID dicyclomine 10 mg capsule 10 mg PO BID melatonin 1 mg tablet 5 mg PO HS PRN (Reason: Insomnia) cholestyramine (with sugar) 4 gram powder in packet 4 g PO DAILY Qty: 90 3RF Rx Instructions: administer at bedtime; avoid other meds within 1hr before or 4-6hr after dose pantoprazole 40 mg tablet,delayed release (DR/EC) See Rx Instructions .ROUTE .COMPLEX Qty: 30 11RF Dose Instruction: TAKE 1 TABLET BY MOUTH EVERY MORNING Rx Instructions: TAKE 1 TABLET BY MOUTH EVERY MORNING ibuprofen 600 mg tablet 600 mg PO TID Qty: 270 1RF atorvastatin 10 mg tablet See Rx Instructions .ROUTE .COMPLEX Qty: 90 1RF Dose Instruction: TAKE 1 TABLET BY MOUTH DAILY Rx Instructions: TAKE 1 TABLET BY MOUTH DAILY Other Ambulatory Orders: PT Outpatient Eval and Treat (ONCE) Timeframe: 20241212 Location: Determined by Patient Ordered By: Kira East Date of admission: 11/19/24 16:19 Primary Care Provider: Zabrina Cox Admitting Provider: Pascual Swenson Attending physician on admission: Pascual Swenson Condition: Stable Hospitalist MIPS Heart Failure (Exclusion) Patient has history of Heart Transplant or Left Ventricular Assistive Device?: No IF YES, STOP HERE Heart Failure (Qualifier) Patient has current or prior documentation of LVEF less than or equal to 40%, or mod/servere depressed LVSF?: No IF NO, STOP HERE
== END 2024-11-21 14:15 | disposition home or self-care (01) ==
LOC: ANHED 13:08 → ANH3MEDSUR 16:36
PROVIDERS: Nurse Practitioner Acute Care; Admitting Provider Internal Medicine; Emergency Provider Physician Assistant; PCP Family Medicine; Visit Provider Student in an Organized Health Care Education/Training Program
DX: S83.411A Sprain of medial collateral ligament of right knee, initial encounter (principal); Z96.651 Presence of right artificial knee joint; S00.211A Abrasion of right eyelid and periocular area, initial encounter; W18.30XA Fall on same level, unspecified, initial encounter; R53.1 Weakness; E78.2 Mixed hyperlipidemia; K21.9 Gastro-esophageal reflux disease without esophagitis; F33.0 Major depressive disorder, recurrent, mild; K58.0 Irritable bowel syndrome with diarrhea; M19.071 Primary osteoarthritis, right ankle and foot; M19.072 Primary osteoarthritis, left ankle and foot; M20.12 Hallux valgus (acquired), left foot; Z87.891 Personal history of nicotine dependence; Z79.899 Other long term (current) drug therapy; Z86.16 Personal history of COVID-19; Z85.3 Personal history of malignant neoplasm of breast
CPT/HCPCS: 36415; 70450; 71046; 73562; 73610; 73630; 73700; 80053; 83690; 84484; 85025; 85610; 85730; 93005; 96361; 96374; 96375; 97116; 97161; 97165; 99285; A9270; G0378; J1650; J2470

== ENCOUNTER 2024-12-01 14:16 | Outpatient (CLI) | payer MEDICARE, SELFPAY ==
--- NOTE | ~2024-12-01 | MM_ITS ---
EXAMINATION: MM screening nader RT w mitesh HISTORY: Screening. Status post left mastectomy for malignancy. TECHNIQUE: Craniocaudal and mediolateral oblique 3-D tomosynthesis images were obtained and synthetic 2-D images were generated. CAD analysis was submitted and interpreted. COMPARISON: Comparison to multiple prior studies sequentially, with oldest reviewed study dated 11/11. BREAST PARENCHYMAL COMPOSITION: Not Dense. The breasts are almost entirely fatty. FINDINGS: There is no evidence of suspicious mass, calcification, or architectural distortion to sugg est malignancy in the right breast. There has been no suspicious interval change. IMPRESSION: 1. No mammographic evidence of malignancy. 2. Recommend routine screening mammography in one year. BI-RADS Category 1: Negative Reviewed, dictated and finalized at location B. SUPERVISOR
--- OUTSIDE RECORDS SUMMARY | 2024-12-01 14:20 | XMS_ITS | Encounter Summary ---
Author Organization [facility] Address [address] [place] [address] Care Team Providers Care Sorting Grapple Operator Name Role Phone Romeo Flannery MD Primary Care Provider [phone] Encounter Details Date Type Department Care Team (Late st Contact Info) Description 12/12/2022 Lab Requisition [facility] [address] [place] [id number] [place]ifacio [place] [address] Social History Tobacco Use Types Packs/Day Years [...] Diagnosis Comments DERMATOPATHOLOGY Routine 12/11/2022 3:33 AM BACKEND DEVELOPER documented in this encounter Results * DERMATOPATHOLOGY (12/11/2022 3:33 AM BACKEND DEVELOPER) Case Report Dermatopathology Report Case: [id number] Authorizing Provider: Bonifacio Jiang MD Collected: 12/11/2022 03:33 AM Ordering Location: [facility] Received: 12/12/2022 02:17 PM Pathologist: Radha Rangel MD Specimen: Skin, left sup buttock 1:51 PM BACKEND DEVELOPER DERMATOPATHOLOGY LABORATORY Final Diagnosis Specimen A. SKIN, left sup buttock: NEVUS LIPOMATOSUS SUPERFICIALIS (D17.30) 3 1:51 PM BACKEND DEVELOPER DERMATOPATHOLOGY LABORATORY Clinical History R/O inflammed Nevus, Lipomatosus hamartoma 3 1:51 PM BACKEND DEVELOPER DERMATOPATHOLOGY LABORATORY Gross Description Specimen A: Received is one formalin filled container labeled with the patient's name and designated left sup buttock. The specimen consists of a [id number] mm piece of skin. The margin is inked green. The specimen is bisected lengthwise and submitted in 4 cassettes. Jar 0. 3 1:51 PM BACKEND DEVELOPER DERMATOPATHOLOGY LABORATORY Microscopic Description Specimen A. SKIN, left sup buttock: There is a gently folded epidermis surrounding a connective tissue core in which fat and collagen are intermingled. 3 1:51 PM BACKEND DEVELOPER DERMATOPATHOLOGY LABORATORY Disclaimer An external and internal positive and negative controls are appropriate for the histochemical, immunohistochemical and immunofluorescence stain(s) in this case (if any), except where stated explicitly. The performance characteristics of the stain(s) cited in this report were developed and its performance characteristic determined by the Dermatopathology Laboratory at [facility], directed by Dr. Eh Leahy. These tests need not be, and therefore are not, approved by the [place] Food and Drug Administration. The tests are used for clinical purposes. Billing Codes Specimen Charges Stain Charges 17873 1 3 1:51 PM BACKEND DEVELOPER DERMATOPATHOLOGY LABORATORY Embedded Images 3 1:51 PM BACKEND DEVELOPER DERMATOPATHOLOGY LABORATORY Pathology/Cytolo gy TISSUE SPECIMEN FROM SKIN / Unknown 12/11/2022 3:33 AM BACKEND DEVELOPER 12/12/2022 2:17 PM BACKEND DEVELOPER Bonifacio Jiang MD LAB - PATHOLOGY/CYTO LOGY ORDERABLES DERMATOPATHOLOGY LABORATORY [facility] - Department of Dermatology [address], [address] [phone] documented in this encounter Visit Diagnoses Not on filedocumented in this encounter Care Teams Sorting Grapple Operator Relationship Specialty Start Date End Date Romeo Flannery MD [address] [place], [place] [id number] PCP - General 06/09/12 documented as of this encounter
--- OUTSIDE RECORDS SUMMARY | 2024-12-01 14:20 | XMS_ITS | Continuity of Care Document ---
Author Organization [facility] Address [address] [place] [address] [place] [address] Phone Care Team Providers Care Program Technician Name Role Phone Dagoberto Bradford DO Unavailable Unavailable Advance Directives Directive Yes / No Effective Date File Name No Information Encounters Encounter Description Practice Location Reason(s) For Visit Diagnoses Date Provider Providers Copied on Encounter [facility], [address], [place], [place], [id number], [place] tel:[phone] [facility] No Information [facility]. [address] [facility], [place], [address], [place]. tel: [phone] Family History Family Member Type Diagnosis Age At Onset No Information Payers Payer name Insurance type Covered libertarian ID Authoriza tion(s) No Information Social History [...]
--- OUTSIDE RECORDS SUMMARY | 2024-12-01 14:20 | XMS_ITS | Referral Summary ---
Author Organization [facility] Address [address] [place] [address] Care Team Providers Care Pain Management Specialist Name Role Phone Romeo Flannery MD Primary Care Provider [phone] Source Comments [facility],non-owned Affiliates and Associated Physician Practices is amultiple site organization consisting of ambulatory clinics and hospital sitesin [place] and [place]. This disclosure is being madepursuant to the Care Everywhere program and may not contain all information available regarding this patient. Last updated 18.[facility] Social History Tobacco Use Types Packs/Day Years Used Date Smoking Tobacco: Never Assessed Sex and Gender Information Value Date Recorded Sex Assigned at Not on file Gender Identity Not on file Sexual Orientation Not on file Plan of Treatment Not on file Care Teams Pain Management Specialist Relationship Specialty Start Date End Date Romeo Flannery MD [address] [place] [address] PCP - General 06/09/12
--- OUTSIDE RECORDS SUMMARY | 2024-12-01 14:20 | XMS_ITS | Patient Health Summary ---
Author Organization [facility] Address [address] [place] [address] Care Team Providers Care Armored Truck Driver Name Role Phone Romeo Flannery MD Primary Care Provider [phone] Note from [facility],non-owned Affiliates and Associated Physician Practices is amultiple site organization consisting of ambulatory clinics and hospital sitesin [place], [place], [place] and [place]. This disclosure is being madepursuant to the Care Everywhere program and may not contain all information available regarding this patient. Last updated 18.[facility] Social History Tobacco Use Types Packs/Day Years Used Date Smoking Tobacco: Never Assessed Sex and Gender Information Value Date Recorded Sex Assigned at Not on file Gender Identity Not on file Sexual Orientation Not on file Procedures * DERMATOPATHOLOGY(Performed 12/11/2022) * DERMATOPATHOLOGY(Performed 02/28/2017) Results * DERMATOPATHOLOGY (12/11/2022 3:33 AM DESIGN ASSISTANT) Only the most recent of2 resultswithin the time period is included. Case Report Dermatopathology Report Case: [id number] Authorizing Provider: Bonifacio Jiang MD Collected: 12/11/2022 03:33 AM Ordering Location: [facility] Received: 12/12/2022 02:17 PM Pathologist: Radha Rangel MD Specimen: Skin, left sup buttock 3 1:51 PM DESIGN ASSISTANT DERMATOPATHOLOGY LABORATORY Final Diagnosis Specimen A. SKIN, left sup buttock: NEVUS LIPOMATOSUS SUPERFICIALIS (D17.30) 3 1:51 PM DESIGN ASSISTANT DERMATOPATHOLOGY LABORATORY Clinical History R/O inflammed Nevus, Lipomatosus hamartoma 3 1:51 PM [facility] DERMATOPATHOLOGY LABORATORY Gross Description Specimen A: Received is one formalin filled container labeled with the patient's name and designated left sup buttock. The specimen consists of a 70h57t5 mm piece of skin. The margin is inked green. The specimen is bisected lengthwise and submitted in 4 cassettes. Jar 0. 3 1:51 PM [facility] DERMATOPATHOLOGY LABORATORY Microscopic Description Specimen A. SKIN, left sup buttock: There is a gently folded epidermis surrounding a connective tissue core in which fat and collagen are intermingled. 1:51 PM [facility] DERMATOPATHOLOGY LABORATORY Disclaimer An external and internal positive and negative controls are appropriate for the histochemical, immunohistochemical and immunofluorescence stain(s) in this case (if any), except where stated explicitly. The performance characteristics of the stain(s) cited in this report were developed and its performance characteristic determined by the Dermatopathology Laboratory at [facility], directed by Dr. Eh Leahy. These tests need not be, and therefore are not, approved by the [place] Food and Drug Administration. The tests are used for clinical purposes. Billing Codes Specimen Charges Stain Charges 71037 1 3 1:51 PM [facility] DERMATOPATHOLOGY LABORATORY Embedded Images 3 1:51 PM [facility] DERMATOPATHOLOGY LABORATORY Pathology/Cytolo gy TISSUE SPECIMEN FROM SKIN / Unknown 12/11/2022 3:33 AM DESIGN ASSISTANT 12/12/2022 2:17 PM [facility] Bonifacio Jiang MD LAB - PATHOLOGY/CYTO LOGY ORDERABLES DERMATOPATHOLOGY LABORATORY [facility] - Department of Dermatology [facility] [address] [place] [address], [address] [phone] Care Teams Armored Truck Driver Relationship Specialty Start Date End Date Romeo Flannery MD [address] [place] [address] PCP - General 06/09/12
--- OUTSIDE RECORDS SUMMARY | 2024-12-01 14:20 | XMS_ITS | Clinical Summary ---
Author Organization [facility] Address [address] [place] [address] Care Team Providers Care Mosaic Layer Name Role Phone Romeo Flannery MD Primary Care Provider [phone] Source Comments [facility],non-owned Affiliates and Associated Physician Practices is amultiple site organization consisting of ambulatory clinics and hospital sitesin [place], [place], [place] and [place]. This disclosure is being madepursuant to the Care Everywhere program and may not contain all information available regarding this patient. Last updated 18.[facility] Social History Tobacco Use Types Packs/Day Years [...] age to complete this topic Care Teams Mosaic Layer Relationship Specialty Start Date End Date Romeo Flannery MD [address] [place] [address] PCP - General 06/09/12
--- OUTSIDE RECORDS SUMMARY | 2024-12-01 14:20 | XMS_ITS | Clinical Summary ---
Author Organization [facility] Address [address] [place] [address] Phone Care Team Providers Care Veneer Stock Layer Name Role Phone Babar Quezada MD Unavailable Zabrina Cox MD Primary Care Provider + [...] 09/20/2024 Assessment & Plan (11/05/2024 10:39 AM MICROFILM PROCESSOR): Patient's initial BMI was 38; this has improved to 33 through medical management Assessment & Plan (09/20/2024 10:45 AM MICROFILM PROCESSOR): Patient's initial BMI was 38; this has improved to 33 through medical management Obesity, Class I, BMI 30-34.9 04/27/2024 Assessment & Plan (07/26/2024 7:42 AM CDT): Patient's initial BMI was 38; this has improved to 34 through medical and lifestyle management Encounter for weight loss counseling 04/19/2024 Assessment & Plan (11/05/2024 3:44 PM MICROFILM PROCESSOR): Rx INDIVIDUALIZED FIRST LINE THERAPY PHYSICAL ACTIVITY: [...] consider. Assessment & Plan (09/20/2024 10:45 AM MICROFILM PROCESSOR): Rx INDIVIDUALIZED FIRST LINE THERAPY PHYSICAL ACTIVITY: [...] 04/19/2024 Assessment & Plan (11/05/2024 10:39 AM [facility]): Obesity is one of the leading risk [...] mortality. Assessment & Plan (09/20/2024 7:49 AM MICROFILM PROCESSOR): See below. Assessment & Plan (07/26/2024 7:42 AM CDT): See below Mixed hyperlipidemia 04/19/2024 Assessment & Plan (11/05/2024 10:40 AM MICROFILM PROCESSOR): Continue current weight loss plan as outlined in note with close monitoring with routine lab work. Weight loss of 5-10% can show a reduction in HDL cholesterol. Cruz Gill JP, Tewksbury C, et al. Nutritional considerations with antiobesity medications. Obesity ([place]). 2023; 1-19. doi:10.1002/mindy.13260 Gastroesophageal reflux disease without esophagi tis 04/19/2024 Assessment & Plan (11/05/2024 10:39 AM MICROFILM PROCESSOR): Continue current weight loss plan as outlined in note. Discuss low acid diet and use of antacid medications if necessary. A weight reduction of 10-15% body weight can result in improved symptom severity and frequency. Cruz Gill JP, Tewksbury C, et al. Nutritional considerations with antiobesity medications. Obesity ([place]). 2023; 1-19. doi:10.1002/mindy.76038 Nonalcoholic hepatosteatosis 04/19/2024 Assessment & Plan (11/05/2024 10:40 AM MICROFILM PROCESSOR): WL of 7.5- 10 % the body [...] Department Care Team Description 11/05/2024 3:30 PM MICROFILM PROCESSOR Telemedicine [facility] [address] [place] [address] Medical Office Building [address] [place] [address] Robert Clayton PA Encounter for weight loss counseling (Primary Dx); Class 2 drug-induced obesity with serious comorbidity and body mass index (BMI) of 38.0 to 38.9 in adult; Gastroesophageal reflux disease without esophagitis; Metabolic disorder; Mixed hyperlipidemia; Nonalcoholic hepatosteatosis 09/21/2024 Telephone [facility] [address] [place] [address] [address] [place] [address] Maryan Martinez CMA 09/20/2024 10:30 AM MICROFILM PROCESSOR Telemedicine [facility] [address] [place] [address] Office [address], [address] [place] [address] Robert Clayton PA Encounter for weight loss counseling (Primary Dx); Class 2 severe obesity with serious comorbidity and body mass index (BMI) of 38.0 to 38.9 in adult, unspecified obesity type (HCC); Metabolic disorder 09/20/2024 Orders Only [facility] [address] [place] [address] [address], [address] [place] [address] Maryan Martinez CMA from Last 3 Months Immunizations Immunization Administration Dates Next Due Influenza, Quadrivalent, Hig [...] on file Legal Sex Female 1:17 AM MICROFILM PROCESSOR Gender Identity Not on file Sexual Orientation [...] 78.5 kg (173 lb) 11/05/2024 3:26 PM MICROFILM PROCESSOR h ome weight Height 152.4 cm (5') 11/05/2024 3:26 PM MICROFILM PROCESSOR Body Mass Index 33.79 11/05/2024 3:26 PM MICROFILM PROCESSOR Plan of Treatment Health Maintenance Due Date [...] history exists Insurance A[employer]NA MEDICARE MEDICARE [facility] Address: [facility] [address] [place] [address] Care Teams Veneer Stock Layer Relationship Specialty Start Date End Date Zabrina Cox MD PCP - General Family Medicine 12/25/20 Babar Quezada MD Referring Physician Plastic Surgery 12/29/18
--- OUTSIDE RECORDS SUMMARY | 2024-12-01 14:21 | XMS_ITS | Patient Health Record ---
Author Organization 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) Active confirmed Problem Adhesive capsulitis of left shoulder (634929684109858) Adhesive capsulitis of left shoulder (M75.02) Active confirmed Problem [id number] Trochanteric bursitis of right hip (M70.61) Active confirmed Problem 74284331 Sacroiliitis (M46.1) Active confirmed Problem 189955096680412 Primary osteoarthritis of right hip (M16.11) Active confirmed Problem Tear of left rotator cuff (56874700243996681 ) Tear of left rotator cuff, unspecified tear extent (M75.102) Active confirmed Problem 26779544 Meralgia paresthetica of left side (G57.12) Active confirmed Problem 202677434 Lumbar spondylosis (M47.816) Active confirmed Vital Signs [...] Provider Diagnosis [facility] [address] [place] [address] 12/22/2023 YARITZA AHMAD Trochanteric bursiti s of right hip M70.61 [facility] [address] [address] 02/12/2024 Elizabeth zzzHolt Trochanteric bursiti s of right hip M70.61 and Sacroiliitis M46.1 [facility] [address] [address] 04/22/2024 YARITZA MARTINMAD Sacroiliitis M46.1 [facility] [address] [address] 05/27/2024 Elizabeth crystalHolt Sacroiliitis M46.1 ; Primary osteoarthritis, left shoulder M19.012 ; Adhesive capsulitis of left shoulder M75.02 ; Tear of left rotator cuff, unspecified tear extent M75.102 and Trochanteric bursitis of right hip M70.61 Assessments Encounter Date Diagnosis (ICD Code) Assessment Notes Treatment Notes Treatment Clinical Notes Section Notes 12/22/2023 Trochanteric bursitis of right hip (ICD-10 [...] Coverage End Date [employer] MEDICARE [address] [place] [address] [id number] REZA ESPOSITO Self - patient is the insured Medical (General) History Medical History History ICD Code Osteoarthritis IBS Hx of Breast cancer GERD Left clubfoot Surgical History Surgery Date(Month/Year) Right TKA 2009 Left mastectomy 1992 Gall bladder 1990 Left club foot 1982
--- OUTSIDE RECORDS SUMMARY | 2024-12-01 14:21 | XMS_ITS ---
Author Organization [facility] Address [address] [place] [address] Care Team Providers Care Licensed Retail Supervisor Name Role Phone Zabrina Cox Primary Care Provider Unavail able YARITZA TREVINO Unavailable [phone] AHSAN HOLM Unavailable Unavailable Elizabeth Handley Unavailable [phone] Allergies Allergen (clinical drug ingredient) Drug/Non Drug [...] 02/12/2024 Encounters Encounter Location Date Provider Diagnosis [facility] [address] [address] 02/12/2024 Elizabeth Handley Trochanteric bursiti s of [...] * REZA ESPOSITODOB:1950 ([age] yo F)Acc No.[id number]:02/12/2024 Progress Notes Patient: TAJ DENNISLL Provider: Diana Nielsen NP :1950 A ge:73 Y S ex:Female Date:02/12/2024 Address:[address] [place] [address] Pcp:Zabrina Cox Subjective: * Chief Complaints: * [...] Generated for Luis Enrique buck/Harleen/Kieshaitting on: 0 12/01/2024 02:21 PM DUSTING AND BRUSHING MACHINE OPERATOR
--- OUTSIDE RECORDS SUMMARY | 2024-12-01 14:21 | XMS_ITS | Clinical Summary ---
Author Organization [facility] Address [address] [place] [address] Phone Care Team Providers Care Manual Arts Teacher Name Role Phone Zabrina Cox MD Primary [...] on file Legal Sex Female 6:01 AM FEED AND FARM MANAGEMENT ADVISER Gender Identity Not on file Sexual Orientation [...] OR WO CAD Routine 10/03/2015 1:25 PM FEED AND FARM MANAGEMENT ADVISER Visit for screening mammogram from Last 3 Months or Most Recently Relevant to Health Maintenance Results * MAMMO DIGITAL SCREEN UNI RIGHT (10/03/2015 1:25 PM FEED AND FARM MANAGEMENT ADVISER) Anatomical Region Laterality Modality Breast Right Mammography 10/03/2015 1:14 PM FEED AND FARM MANAGEMENT ADVISER Narrative 10/05/2015 9:04 AM FEED AND FARM MANAGEMENT ADVISER RIGHT UNILATERAL FULL FIELD DIGITAL SCREENING MAMMOGRAM [...] Relevant to Health Maintenance Insurance Care Teams Manual Arts Teacher Relationship Specialty Start Date End Date Zabrina Cox MD PCP - General Family Practice 02/21/22
--- OUTSIDE RECORDS SUMMARY | 2024-12-01 14:21 | XMS_ITS ---
Author Organization [facility] Address [address] [place] [address] Care Team Providers Care Professor Of History Name Role Phone Zabrina Cox Primary Care Provider Unavail able YARITZA TREVINO Unavailable [phone] AHSAN OHLM Unavailable Unavailable Elizabeth Handley Unavailable [phone] Allergies Allergen (clinical drug ingredient) Drug/Non Drug [...] Localized, primary osteoarthritis of the shoulder region (524792844) Primary osteoarthritis, left shoulder (M19.012) Active confirmed Problem Adhesive capsulitis of left shoulder (219100368813050) Adhesive capsulitis of left shoulder (M75.02) Active confirmed Problem Tear of left rotator cuff (49358369281796935 ) Tear of left rotator cuff, unspecified tear extent (M75.102) Active confirmed Vital Signs Blood pressure systolic 106 mm Hg 05/27/20 Blood pressure diastolic 70 mm Hg 024 Heart Rate 84 /min 05/27/2024 Temperature 98.6 degrees Fahrenheit 05/27/20 Weight 172 lbs 05/27/2024 Height 60 in 05/27/2024 BMI 33.59 kg/m2 05/27/2024 vas 03/22 Encounters Encounter Location Date Provider Diagnosis [facility] [address] [address] 05/27/2024 Elizabeth Handley Sacroiliitis M46.1 ; Primary [...] * REZA ESPOSITODOB:1950 ([age] yo F)Acc No.[id number]:05/27/2024 Progress Notes Patient: Rafaela AVILAMillieTAJLL Provider: Diana Nielsen NP :1950 A ge:73 Y S ex:Female Date:05/27/2024 Address:[address] [place] [address] Pcp:Zabrina Cox Subjective: * Chief Complaints: * [...] MRI of lumbar spine from 02/12/22 from [facility] grade I-II L5 S1 spondylothesis. Grade I-II [...] Date: 0 05/27/2024 Generated for Luis Enrique Marin/Sven on: 0 12/01/2024 02:21 PM ROLLING MILL OPERATOR HELPER
--- OUTSIDE RECORDS SUMMARY | 2024-12-01 14:21 | XMS_ITS ---
Author Organization [facility] Address [address] [address] Care Team Providers Care Judicial Law Clerk Name Role Phone Zabrina Cox Primary Care Provider Unavail able YARITZA TREVINO Unavailable [phone] AHSAN HOLM Unavailable Unavailable Allergies Allergen (clinical [...] Provider Diagnosis [facility] [address] [address] 04/22/2024 YARITZA TREVINO Sacroiliitis M46.1 Assessments Encounter [...] Notes * VAIBHAVREZADOB:1950 ([age] yo F)Acc No.[id number]:04/22/2024 Progress Note Patient: REZA DENNIS Provider: Tex TREVINO M.D. :1950 A ge:73 Y S ex:Female Date:04/22/2024 Address:[address] [place] [address] Pcp:Zabrina Cox Subjective: * Chief Complaints: * [...] Modifiers: 50 Q9966 LOCM 200-299MG/ML IODINE,1ML 1 [id number] UNCLASSIFIED [id number] INJ TRIAMCINOLONE ACETONIDE 10 MG 2 [id number] STERILE [id number] RADIATION EXPOSURE INDICES DOC * * Sign off status: Completed true * Provider: Tex TREVINO M.D. Date: 0 04/22/2024 Generated for Luis Enrique buck/Harleen/Kieshaitting on: 0 12/01/2024 02:20 PM ACCESS DATABASE DEVELOPER
--- OUTSIDE RECORDS SUMMARY | 2024-12-01 14:21 | XMS_ITS | Referral Summary ---
Author Organization [facility] Address [address] [place] [address] Phone Care Team Providers Care Elastic Cutter Name Role Phone Babar Quezada MD Unavailable [phone] Zabrina Cox MD Primary Care Provider + Encounters Date Type Department Care Team Description 11/05/2024 3:30 PM TRAIN INSPECTOR Telemedicine [facility] [address] [place] [address] Medical Office Building [address], [address] [place] [address] Robert Clayton PA Encounter for weight loss counseling (Primary Dx); Class 2 drug-induced obesity with serious comorbidity and body mass index (BMI) of 38.0 to 38.9 in adult; Gastroesophageal reflux disease without esophagitis; Metabolic disorder; Mixed hyperlipidemia; Nonalcoholic hepatosteatosis 09/21/2024 Telephone [facility] [address] [facility] [address] [place] [address] Phiumu, Ni, CAST IRON DRAIN PIPE LAYER 09/20/2024 Orders Only [facility] [address] [place] [address] Office [address], [address] [place] [address] Phikenntjerd, Ni, CAST IRON DRAIN PIPE LAYER 09/20/2024 10:30 AM TRAIN INSPECTOR Telemedicine [facility] [address] [place] [address] Medical Office Building [address], [address] [place] [address] Robert Clayton PA Encounter for [...] 09/20/2024 Assessment & Plan (11/05/2024 10:39 AM TRAIN INSPECTOR): Patient's initial BMI was 38; this has improved to 33 through medical management Assessment & Plan (09/20/2024 10:45 AM TRAIN INSPECTOR): Patient's initial BMI was 38; this has improved to 33 through medical management Obesity, Class I, BMI 30-34.9 04/27/2024 Assessment & Plan (07/26/2024 7:42 AM CDT): Patient's initial BMI was 38; this has improved to 34 through medical and lifestyle management Encounter for weight loss counseling 04/19/2024 Assessment & Plan (11/05/2024 3:44 PM TRAIN INSPECTOR): Rx INDIVIDUALIZED FIRST LINE THERAPY PHYSICAL ACTIVITY: [...] consider. Assessment & Plan (09/20/2024 10:45 AM TRAIN INSPECTOR): Rx INDIVIDUALIZED FIRST LINE THERAPY PHYSICAL ACTIVITY: [...] 04/19/2024 Assessment & Plan (11/05/2024 10:39 AM TRAIN INSPECTOR): Obesity is one of the leading risk [...] mortality. Assessment & Plan (09/20/2024 7:49 AM TRAIN INSPECTOR): See below. Assessment & Plan (07/26/2024 7:42 AM CDT): See below Mixed hyperlipidemia 04/19/2024 Assessment & Plan (11/05/2024 10:40 AM TRAIN INSPECTOR): Continue current weight loss plan as outlined in note with close monitoring with routine lab work. Weight loss of 5-10% can show a reduction in HDL cholesterol. Cruz Gill JP, Tewksbury C, et al. Nutritional considerations with antiobesity medications. Obesity ([place]). 2023; 1-19. doi:10.1002/mindy.15551 Gastroesophageal reflux disease without esophagi tis 04/19/2024 Assessment & Plan (11/05/2024 10:39 AM TRAIN INSPECTOR): Continue current weight loss plan as outlined in note. Discuss low acid diet and use of antacid medications if necessary. A weight reduction of 10-15% body weight can result in improved symptom severity and frequency. Cruz Gill JP, Tewksbury C, et al. Nutritional considerations with antiobesity medications. Obesity ([place]). 2023; 1-19. doi:10.1002/mindy.03929 Nonalcoholic hepatosteatosis 04/19/2024 Assessment & Plan (11/05/2024 10:40 AM TRAIN INSPECTOR): WL of 7.5- 10 % the body [...] in female, estrogen receptor positive 12/29/2018 Immunizations Immunization Administration Dates Next Due Influenza, [...] on file Legal Sex Female 1:17 AM TRAIN INSPECTOR Gender Identity Not on file Sexual Orientation [...] 78.5 kg (173 lb) 11/05/2024 3:26 PM TRAIN INSPECTOR h ome weight Height 152.4 cm (5') 11/05/2024 3:26 PM TRAIN INSPECTOR Body Mass Index 33.79 11/05/2024 3:26 PM TRAIN INSPECTOR Plan of Treatment Not on file Insurance AETNA MEDICARE MEDICARE [facility] Address: [address] [address] [place] [address] Care Teams Elastic Cutter Relationship Specialty Start Date End Date Zabrina oCx MD PCP - General Family Medicine 12/25/20 Babar Quezada MD Referring Physician Plastic Surgery 12/29/18
== END 2024-12-01 14:17 | disposition home or self-care (01) ==
LOC: ANHIMG 14:18
PROVIDERS: PCP Family Medicine; Visit Provider Family Medicine
DX: Z12.31 Encounter for screening mammogram for malignant neoplasm of breast (principal)
CPT/HCPCS: 77063; 77067